=== PATIENT | male | born 1935 | race Caucasian/White ===

== ENCOUNTER 2022-04-05 15:21 | Outpatient (CLI) | payer MEDICARE, BC, SELFPAY ==
[2022-04-05 17:57] LABS: PSA Screen* 4.71 ng/mL (0.10-4.00)
== END 2022-04-05 15:22 | disposition home or self-care (01) ==
LOC: NFLDREF 15:23
PROVIDERS: PCP Internal Medicine; Visit Provider Internal Medicine
DX: N40.0 Benign prostatic hyperplasia without lower urinary tract symptoms (principal); D50.9 Iron deficiency anemia, unspecified; E78.5 Hyperlipidemia, unspecified; R35.0 Frequency of micturition
CPT/HCPCS: 84153; 87086

== ENCOUNTER 2022-04-06 08:00 | Outpatient (RCR) | payer MEDICARE, BC, SELFPAY ==
--- NOTE | 2022-04-06 12:00 | PT.OPEX ---
PT [place] Outpatient Eval PT [facility] Outpatient Eval Start: 02/09/22 13:29 Freq: Status: Active Protocol: Document 02/09/22 13:29 [facility] (Rec: 02/09/22 13:49 [facility] [id number]) E-signed By Lori Brunner, PT, ATC Physical Therapy Outpatient Evaluation Insurance Information Insurance Name Medicare B,Blue Cross/Blue Shield Medical Diagnosis unsteady gait Treating Diagnosis unsteady gait overpronation bilaterally weak core Referring MD Spears Subjective Current Work Status Retired Precautions Weight Bearing Status Full Weight Bearing Therapy Limitations/Systems Review Not Limited Objective Range of Motion right ankle: DF=8, PF=48, INV =15, EV=17, forefoot varus =20 left ankle: DF=7, PF=34, INV=20, EV=20, forefoot varus = 16 Assessment Assessment/Impression 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 He likes to get out and walk, but he hasn't been going as much because he is feeling less sure of himself. going uphill he has been getting more winded than usual (had a echocardiogram) but going down hill he gets spooked in fear of falling. His pelvic alignment appears normal, as does his leg length. His ankle motion is limited and he has significant forefoot varus bilaterally. hip , knee and ankle MMTs are 5/5. He overpronates bilaterally but the left side is more pronounced. When walking his gait appears to have equal karthik but his right foot toes out significantly, left foot points forward. pt had an achilles rupture and repair on the right in 1977. pt will benefit from skilled PT for TE, orthotic fabrication and proprioceptive training. pt will work on the exercises given today for 2 wks at which time he will bring in his shoes and I will fabricate orthotics and progress his exercises Plan of Care Rehabilitation Potential Good Physical Therapy Goals 1. pt will be competent and compliant with home ex's 2. in 4 wks pt will be comfortable wearing his orthotics in his shoes for a full day as he is out and about 3. in 8 wks pt will be able to walk downhill without fear of unsteadiness Coordination/Communication With Referral Source Treatment Plan/Direct Interventions Gait Training,Orthotics/Braces ,Therapeutic Exercises Frequency/Duration 1 time every other week as needed to achieve goals Patient Will Be Discharged From Therapy Independently Progressing Evaluation Billing Complexity Moderate Certification Information Initial Certification Date 02/09/22 Ending Certification Date 02/09/22
== END 2023-02-21 23:59 | disposition home or self-care (01) ==
PROVIDERS: PCP Internal Medicine; Visit Provider Internal Medicine
DX: R26.9 Unspecified abnormalities of gait and mobility (principal); Z51.89 Encounter for other specified aftercare
CPT/HCPCS: 97110; 97112; 97162; 97763

== ENCOUNTER 2022-04-18 10:37 | Outpatient (CLI) | payer MEDICARE, BC, SELFPAY | END 2022-04-18 10:38 | disposition home or self-care (01) | LOC: NFLDREF 04-27 14:48 | PROVIDERS: PCP Internal Medicine; Visit Provider Internal Medicine | DX: L81.9 Disorder of pigmentation, unspecified (principal); N39.0 Urinary tract infection, site not specified | CPT/HCPCS: 87086 ==

== ENCOUNTER 2022-05-09 09:02 | Outpatient (CLI) | payer MEDICARE, BC, SELFPAY | END 2022-05-09 09:03 | disposition home or self-care (01) | LOC: NFLDREF 09:03 | PROVIDERS: PCP Internal Medicine; Visit Provider Internal Medicine | DX: N39.0 Urinary tract infection, site not specified (principal) | CPT/HCPCS: 87086 ==

== ENCOUNTER 2022-08-13 09:21 | Outpatient (CLI) | payer MEDICARE, BC, SELFPAY | END 2022-08-13 09:22 | disposition home or self-care (01) | LOC: OP CLINIC 09:23 | PROVIDERS: PCP Internal Medicine; Visit Provider Surgery | DX: Z13.810 Encounter for screening for upper gastrointestinal disorder (principal); K22.89 Other specified disease of esophagus; K31.89 Other diseases of stomach and duodenum; K44.9 Diaphragmatic hernia without obstruction or gangrene | CPT/HCPCS: 43239; 88305; J2250; J3010 ==

== ENCOUNTER 2023-03-03 22:24 | Emergency (ER) | payer MEDICARE, BC, SELFPAY ==
[2023-03-03 22:33] VITALS: BP 109/70; PULSE 93; RESP 16; TEMP 36.8; O2SAT 98; BMI 23.7
--- NOTE | 2023-03-03 22:49 | ED_ITS ---
HPI - General Adult General Chief complaint: GI Bleed Stated complaint: rectal bleeding Time Seen by Provider: 03/03/23 22:29 History of Present Illness HPI narrative: This 87-year-old male comes in reporting bright red blood per rectum today. He states that he has been having troubles with constipation and did have a significant bowel movement earlier in the day. His next visit to the bathroom there was red blood in the toilet. He does not report any pain. He states that he has been having some blood in his stool on occasion like this. He does have a colonoscopy scheduled in a few months. He does have a history of anemia related to iron deficiency. He does not report any lightheadedness or shortness of breath. Related Data Home Medications Medication Instructions Recorded Confirmed cyanocobalamin (vitamin B-12) 1,000 mcg PO QDAY 04/10/22 03/03/23 1,000 mcg capsule ferrous sulfate 325 mg (65 mg 325 mg PO QDAY 04/10/22 03/03/23 iron) tablet propranolol 10 mg tablet 10 mg PO BID 05/09/22 09/18/22 finasteride 5 mg tablet 5 mg PO QDAY 08/27/22 03/03/23 Previous Rx's Medication Instructions Recorded tamsulosin 0.4 mg capsule 0.8 mg (2 x 0.4 mg) PO QDAY bph 04/05/22 #90 caps omeprazole 20 mg capsule,delayed 20 mg PO BID Austin's Esophagus 08/27/22 release #180 caps Allergies Allergy/AdvReac Type Severity Reaction Status Date / Time Nut tree Allergy Severe angioedema Uncoded 09/18/22 10:08 pine nuts AdvReac Severe angioedema Uncoded 09/18/22 10:08 Review of Systems Status of ROS: Reports: 10 or more systems reviewed and unremarkable except as noted in History and below Narrative: Constitutional: No fevers, no weight gain or loss. Eyes: No discharge. No vision changes. HENT: No congestion, no sore throat, no ear pain. Cardiovascular: No chest pain, no palpitations. Respiratory: No shortness of breath, no wheezes, no cough. Gastrointestinal: No abdominal pain, no vomiting, no diarrhea. Red blood per rectum today. Genitourinary: No dysuria, no hematuria. Musculoskeletal: Normal range of motion. Skin: No rashes, no pruritis. Neurological: No dizziness, weakness, sensory change, speech change. Endo/Heme/Allergies: No bruising or bleeding. No polydipsia. Pysch: no suicidality, no anxiety, no insomnia. All other systems reviewed and are negative. 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 Hx tobacco use Smoking Status: Never smoker Exam Narrative: Exam Narrative: Constitutional: Well-developed, well-nourished, no acute distress. HEENT: Normocephalic, atraumatic. Neck: Normal range of motion. Nontender. Supple. Heart: Regular. No murmurs. Normal rate. Intact distal pulses. Lungs: Clear to auscultation. No chest discomfort. No wheezes, rhonchi, or rales. Abdomen: Normal bowel sounds. Nontender. No rebound tenderness. Genitalia: Deferred. Back: No midline tenderness. Normal range of motion. Extremities: Normal range of motion. No injury. Skin: Intact. No rash. Warm. No erythema or pallor. Neurologic: No altered sensation. No weakness. Alert and oriented. Psychiatric: No suicidality. No anxiety or depression. No insomnia. Nursing notes and vitals signs are reviewed. Const: Vital Signs, click to edit/add: Vital Signs - 24 hr 03/03/23 22:33 Temperature 98.3 F Pulse Rate [Left P ulse Oximeter] 93 Respiratory Rate 16 Blood Pressure [Ri ght Upper Arm] 109/70 Pulse Oximetry 98 Oxygen Delivery Me thod Room Air Course Vital Signs Vital signs: Initial Vital Signs Temperature 98.3 F 03/03/23 22:33 Temperature Source Temporal Artery Scan 03/03/23 22:33 Pulse Rate 93 03/03/23 22:33 Respiratory Rate 16 03/03/23 22:33 Blood Pressure 109/70 03/03/23 22:33 Blood Pressure Mean 83 03/03/23 22:33 Blood Pressure Position Sitting 03/03/23 22:33 Pulse Oximetry 98 03/03/23 22:33 Oxygen Delivery Method Room Air 03/03/23 22:33 Vital Signs Temperature 98.3 F 03/03/23 22:33 Pulse Rate 93 03/03/23 22:33 Respiratory Rate 16 03/03/23 22:33 Blood Pressure 109/70 03/03/23 22:33 Pulse Oximetry 98 03/03/23 22:33 Oxygen Delivery Method Room Air 03/03/23 22:33 Temperature 98.3 F 03/03/23 22:33 Pulse Rate 93 03/03/23 22:33 Respiratory Rate 16 03/03/23 22:33 Blood Pressure 109/70 03/03/23 22:33 Pulse Oximetry 98 03/03/23 22:33 Oxygen Delivery Method Room Air 03/03/23 22:33 Medical Decision Making MDM Narrative Medical decision making narrative: This 87-year-old male comes in reporting bright red blood per rectum today. He states that he feels well and does not report any pain. He is not on any blood thinners. He has had some occasions like this in the past and is scheduled for a colonoscopy more than 2 months from now. Today his vital signs are normal and he is not reporting any other symptoms. The labs are acquired and his hemoglobin returns at 14.1 giving him lots of cushion for such bleeding. Additional lab results also are in normal range. It seems that this bleeding may be more likely related to hemorrhoid veins or an anal fissure. I explained that a colonoscopy would be helpful to further understand source of this bleeding. This patient is okay to be discharged home but encouraged to follow- up with his primary physician to acquire a colonoscopy sooner if possible. I explained that he may have some recurrent bleeding and if needed can return here and arrangements can be made for more urgent her emergent scope. Lab Data Labs: Lab Results 03/03/23 Range/Units 22:45 WBC 8.35 (4.50-11.00) K/uL RBC 4.55 (4.30-5.90) m/uL Hgb 14.1 (13.5-17.5) gm/dL Hct 42.7 (37.0-53.0) % MCV 94 (80-100) fL MCH 31 (26-34) pg MCHC 33 (32-36) gm/dL RDW Coeff of Casie 13.3 (11.5-15.5) % Plt Count 190 (140-440) K/uL Neut % (Auto) 73.2 H (42.0-72.0) % Lymph % (Auto) 14.4 L (20-44) % [place] % (Auto) 10.4 (0.0-11.0) % Eos % (Auto) 0.5 (0.0-7.0) % Baso % (Auto) 0.4 (0.0-3.0) % Neut # (Auto) 6.10 (1.7-7.0) K/uL Lymph # (Auto) 1.20 (0.90-2.90) K/uL [place] # (Auto) 0.90 (0.00-0.90) K/UL Eos # (Auto) 0.04 (0.00-0.50) K/uL Baso # (Auto) 0.03 (0.00-0.30) K/uL Abs Immat Gran (auto) 0.09 (0.00-0.30) K/uL Imm/Tot Granulo (auto) 1.1 % Sodium 133 L (135-149) mmol/L Potassium 3.8 (3.6-5.1) mmol/L Chloride 102 (96-114) mmol/L Carbon Dioxide 26 (20-32) mmol/L BUN 25 (7-30) mg/dL Creatinine 0.8 (0.5-1.5) mg/dL Estimated Creat Clear 57.52 Estimated GFR 87 ml/min Glucose 122 H (60-115) mg/dL Calcium 9.1 (8.4-10.6) mg/dL Discharge Plan Discharge Clinical Impression: Bright red rectal bleeding Patient Disposition: Home w/ Parent or Adult Condition: Stable Additional Instructions: Continue current plans. Follow up with primary physician to arrange a colonoscopy sooner if possible. Return if symptoms are recurrent or worsening. Prescriptions: No Action tamsulosin 0.4 mg capsule 0.8 mg PO QDAY Qty: 90 3RF ferrous sulfate 325 mg (65 mg iron) tablet 325 mg PO QDAY cyanocobalamin (vitamin B-12) 1,000 mcg capsule 1,000 mcg PO QDAY propranolol 10 mg tablet 10 mg PO BID finasteride 5 mg tablet 5 mg PO QDAY omeprazole 20 mg capsule,delayed release(DR/EC) 20 mg PO BID Qty: 180 3RF Follow Up/Referrals: Lazaro Spears MD [Staff Physician] - Stand Alone Forms: [employer] Info Instructions
[2023-03-03 22:54] LABS: Basophils Absolute Auto 0.03 K/uL (0.00-0.30); Basophils Percent Auto 0.4 % (0.0-3.0); Eosinophils Absolute Auto 0.04 K/uL (0.00-0.50); Eosinophils Percent Auto 0.5 % (0.0-7.0); Hematocrit 42.7 % (37.0-53.0); Hemoglobin* 14.1 gm/dL (13.5-17.5); Immature Granulocytes Abs Auto 0.09 K/uL (0.00-0.30); Immature Granulocytes Pct Auto 1.1 %; Lymphocytes Percent Auto 14.4 % (20-44); Mean Corpuscular HGB Conc 33 gm/dL (32-36); Mean Corpuscular Hemoglobin 31 pg (26-34); Mean Corpuscular Volume 94 fL (80-100); Monocytes Percent Auto 10.4 % (0.0-11.0); Neutrophils Percent Auto 73.2 % (42.0-72.0); Platelet Count* 190 K/uL (140-440); RDW Coefficient of Variation % 13.3 % (11.5-15.5); Red Blood Count 4.55 m/uL (4.30-5.90); White Blood Count* 8.35 K/uL (4.50-11.00)
[2023-03-03 22:59] LABS: Slide Review Reflex No
[2023-03-03 23:07] LABS: Chloride* 102 mmol/L (96-114); Potassium* 3.8 mmol/L (3.6-5.1); Sodium* 133 mmol/L (135-149)
[2023-03-03 23:10] LABS: Blood Urea Nitrogen* 25 mg/dL (7-30); Carbon Dioxide* 26 mmol/L (20-32); Creatinine* 0.8 mg/dL (0.5-1.5); Est. Creatinine Clearance* 57.52; Estimated Glomerular Filt Rate 87 ml/min
[2023-03-03 23:11] LABS: Calcium* 9.1 mg/dL (8.4-10.6); Glucose* 122 mg/dL (60-115)
[2023-03-04] VITALS: BP 112/74; PULSE 85; RESP 16; TEMP 36.8; O2SAT 98
[2023-03-04 00:03] VITALS: BP 119/82; PULSE 81; RESP 16
== END 2023-03-04 00:04 | disposition home or self-care (01) ==
PROVIDERS: Emergency Provider Emergency Medicine Emergency Medical Services; PCP Physician Assistant
DX: K62.5 Hemorrhage of anus and rectum (principal)
CPT/HCPCS: 36415; 80048; 85018; 85025; 99284

== ENCOUNTER 2023-03-06 06:50 | Outpatient (CLI) | payer MEDICARE, BC, SELFPAY | END 2023-03-06 06:51 | disposition home or self-care (01) | LOC: AMB 03-09 18:34 | PROVIDERS: PCP Physician Assistant; Visit Provider Family Medicine | DX: K92.2 Gastrointestinal hemorrhage, unspecified (principal); R53.1 Weakness | CPT/HCPCS: A0425; A0427 ==

== ENCOUNTER 2023-03-06 07:20 | Inpatient (IN) | payer MEDICARE, BC, SELFPAY ==
[2023-03-06] VITALS (40 sets, daily range): BP systolic 109–145; BP diastolic 59–97; PULSE 76–90; RESP 16–24; TEMP 36.6–37.1; O2SAT 80–100; BMI 23.7; BMI 23.1
--- NOTE | 2023-03-06 08:51 | ED_ITS ---
HPI - General Adult General Time Seen by Provider: 08:51 Date Seen: 04/10/23 Chief complaint: Weakness Stated complaint: GI bleed Time Seen by Provider: 03/06/23 07:50 Source: patient Mode of arrival: EMS History of Present Illness HPI narrative: Patient is 87-year-old male has had some rectal bleeding intermittently over the last few weeks. He reported that he had a little bit this morning. His hemoglobin last checked this weekend was 14.1. He is not on any blood thinners. He is scheduled for colonoscopy, his doctor is trying to move up the colonoscopy. He does have some minor rectal discomfort, but he overall feels okay, no stomach pain, no aspirin, no anticoagulants as mention. He does report significant stress with his with memory issues and he is really having trouble dealing with that at home. He reports that is a significant reason of presenting today as well. He denies lightheadedness dizziness, fevers, chills, abdominal pain. Related Data Home Medications Medication Instructions Recorded Confirmed cyanocobalamin (vitamin B-12) 1,000 mcg PO DAILY 04/10/22 03/06/23 1,000 mcg capsule finasteride 5 mg tablet 5 mg PO DAILY 08/27/22 03/06/23 diphenhydramine 25 2 tab PO QHS 03/06/23 03/06/23 mg-acetaminophen 500 mg tablet (Acetaminophen PM) omeprazole 40 mg capsule,delayed 40 mg PO DAILY 03/06/23 03/06/23 release sertraline 25 mg tablet 25 mg PO DAILY 03/06/23 03/06/23 tamsulosin 0.4 mg capsule 0.4 mg PO DAILY bph 03/06/23 03/06/23 Allergies Allergy/AdvReac Type Severity Reaction Status Date / Time tree nut Allergy Verified 03/06/23 10:14 Review of Systems Status of ROS: Reports: 6 or more systems reviewed and unremarkable except as noted in History and below [facility] Medical History (Updated 03/06/23 @ 12:18 by Virginia Jimenez MD) Health care directive on file ?Z78.9 - Other specified health status (ICD-10) Hoarse voice quality ?R49.0 - Dysphonia (ICD-10) 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 (ICD-10) Urinary tract infection ?N39.0 - Urinary tract infection, site not specified (ICD-10) BPH (benign prostatic hyperplasia) ?N40.0 - Benign prostatic hyperplasia without lower urinary tract symptoms (ICD-10) Tremor ?R25.1 - Tremor, unspecified (ICD-10) Surgical History (Updated 03/06/23 @ 11:20 by Virginia Jimenez MD) H/O hernia repair ?Z98.890 - Other specified postprocedural states (ICD-10) ?Z87.19 - Personal history of other diseases of the digestive system (ICD-10) S/P small bowel resection ?Z90.49 - Acquired absence of other specified parts of digestive tract (ICD- 10) Social History (Updated 03/06/23 @ 12:11 by Virginia Jimenez MD) Narrative: 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 Lives with in [place] (she has been undergoing health issues, has MCI). Son Taurus ([facility]# [phone]) and daughter Nury ([facility]) would share medical decision making capabilities if needed. He requests DNR/DNI status. Smoked socially in college, previous social ETOH use, none now. Health care directive on file- Health care directive dated 04/13/20 sent for scanning on 04/22/20. What is your current living situation?: I presently have a place to live Problems where you live: no known problems Problems where you live details: none In the past 12 months, utilities in danger of being shut off: no In the past 12 mos, have been you worried that your food would run out before you had money to buy more?: never true In the past 12 mos, the food you bought just didn't last and you didn't have money to buy more?: never true Highest level of school completed/degree received: Doctoral degree Smoking Status: Never smoker Do you use any of these nicotine containing products: None Second hand tobacco smoke exposure: No How often do you have a drink containing alcohol: never How often do you have six or more drinks on one occasion: Never AUDIT-C Alcohol total score: 0 Non-prescribed substance use: denies use Caffeine: Yes (little coffee-decafe) How often does anyone, including family, friends and others, physically hurt you : never How often does anyone, including family, friends and others, insult or talk down to you: never How often does anyone, including family, friends and others, threaten you with harm: never How often does anyone, including family, friends and others, scream or curse at you: never Gender Identity: male service: No Exam Narrative: Exam Narrative: Objective: Vital signs unremarkable, O2 sat excellent, afebrile In general no apparent distress Patient is a tearful when talking about his situation at home. Abdomen benign soft Rectal examination shows a small what appears to be small anal fissure externally and some external small hemorrhoid tissue that is a little bit friable. No prolapse digital exam deferred Const: Vital Signs, click to edit/add: Vital Signs - 24 hr 03/06/23 07:27 03/06/23 07:54 03/06/23 08:00 Temperature 97.9 F Pulse Rate 84 82 Pulse Rate [Pulse Oximeter] 90 Respiratory Rate 20 Blood Pressure Blood Pressure [Le ft Upper Arm] 136/72 Blood Pressure [Ri ght Arm] Pulse Oximetry 96 94 94 Oxygen Delivery Me thod Room Air 03/06/23 08:01 03/06/23 08:15 03/06/23 08:30 Temperature Pulse Rate 81 82 80 Pulse Rate [Pulse Oximeter] Respiratory Rate Blood Pressure 134/76 Blood Pressure [Le ft Upper Arm] Blood Pressure [Ri ght Arm] Pulse Oximetry 93 94 93 Oxygen Delivery Me thod 03/06/23 08:31 03/06/23 08:45 03/06/23 09:00 Temperature Pulse Rate 82 81 81 Pulse Rate [Pulse Oximeter] Respiratory Rate Blood Pressure 121/67 Blood Pressure [Le ft Upper Arm] Blood Pressure [Ri ght Arm] Pulse Oximetry 93 96 96 Oxygen Delivery Me thod 03/06/23 09:02 03/06/23 09:03 03/06/23 09:15 Temperature Pulse Rate 81 80 78 Pulse Rate [Pulse Oximeter] Respiratory Rate Blood Pressure 138/97 H Blood Pressure [Le ft Upper Arm] Blood Pressure [Ri ght Arm] Pulse Oximetry 95 94 93 Oxygen Delivery Me thod 03/06/23 09:30 03/06/23 09:34 03/06/23 09:45 Temperature Pulse Rate 84 82 82 Pulse Rate [Pulse Oximeter] Respiratory Rate Blood Pressure Blood Pressure [Le ft Upper Arm] Blood Pressure [Ri ght Arm] Pulse Oximetry 95 95 97 Oxygen Delivery Me thod 03/06/23 10:00 03/06/23 10:00 03/06/23 10:04 Temperature Pulse Rate 81 82 Pulse Rate [Pulse Oximeter] Respiratory Rate Blood Pressure 145/70 H Blood Pressure [Le ft Upper Arm] Blood Pressure [Ri ght Arm] Pulse Oximetry 97 100 100 Oxygen Delivery Me thod 03/06/23 10:10 03/06/23 10:15 03/06/23 10:30 Temperature Pulse Rate 79 86 Pulse Rate [Pulse Oximeter] Respiratory Rate Blood Pressure Blood Pressure [Le ft Upper Arm] Blood Pressure [Ri ght Arm] Pulse Oximetry 95 96 80 L Oxygen Delivery Me thod 03/06/23 10:31 03/06/23 10:45 03/06/23 11:00 Temperature Pulse Rate 86 85 82 Pulse Rate [Pulse Oximeter] Respiratory Rate Blood Pressure 143/89 H Blood Pressure [Le ft Upper Arm] Blood Pressure [Ri ght Arm] Pulse Oximetry 100 98 97 Oxygen Delivery Wa thod 03/06/23 11:01 03/06/23 11:23 Temperature 98.2 F Pulse Rate 80 Pulse Rate [Pulse Oximeter] 88 Respiratory Rate 16 Blood Pressure 138/66 Blood Pressure [Le ft Upper Arm] Blood Pressure [Ri ght Arm] 141/72 H Pulse Oximetry 96 97 Oxygen Delivery Me thod Room Air Course Vital Signs Vital signs: Initial Vital Signs Temperature 97.9 F 03/06/23 07:27 Temperature Source Temporal Artery Scan 03/06/23 07:27 Pulse Rate 90 03/06/23 07:27 Pulse Rhythm Regular 03/06/23 07:27 Respiratory Rate 20 03/06/23 07:27 Blood Pressure 136/72 03/06/23 07:27 Blood Pressure Mean 93 03/06/23 07:27 Blood Pressure Position Supine 03/06/23 07:27 Pulse Oximetry 96 03/06/23 07:27 Oxygen Delivery Method Room Air 03/06/23 07:27 Vital Signs Temperature 97.9 F 03/06/23 07:27 Pulse Rate 90 03/06/23 07:27 Respiratory Rate 20 03/06/23 07:27 Blood Pressure 136/72 03/06/23 07:27 Pulse Oximetry 96 03/06/23 07:27 Oxygen Delivery Method Room Air 03/06/23 07:27 Temperature 98 F 03/06/23 16:33 Pulse Rate 78 03/06/23 16:33 Respiratory Rate 20 03/06/23 16:33 Blood Pressure 109/59 L 03/06/23 16:33 Pulse Oximetry 95 03/06/23 16:33 Oxygen Delivery Method Room Air 03/06/23 12:01 Medical Decision Making MDM Narrative Medical decision making narrative: [age] year white male with history of intermittent GI bleeding, recent hemoglobin was stable, not on anticoagulants. He has really no symptomology at present. His blood pressure looks excellent as well as his pulse. Would recheck his hemoglobin. I am also going to have social service consult with him regarding his situation home. I agree with colonoscopy being accomplished as soon as he can. This is being done through his primary care physician. Light activity recommended, fluids, will check his labs as above. Addendum 10:09 a.m. the patient's hemoglobin is followed fallen significantly over the last few days from 14/1 to 9.7. He is lightheaded and dizzy. I think could be appropriate even those vital signs look reassuring to monitor him and check his hemoglobin and expedite his colonoscopy. He was comfortable this. Social service also consulted regarding him in his home situation and they are making arrangements /plan Lab Data Labs: Lab Results 03/06/23 Range/Units 09:33 WBC 6.71 (4.50-11.00) K/uL RBC 3.09 L (4.30-5.90) m/uL Hgb 9.7 L (13.5-17.5) gm/dL Hct 29.5 L (37.0-53.0) % MCV 96 (80-100) fL MCH 31 (26-34) pg MCHC 33 (32-36) gm/dL RDW Coeff of Casie 13.8 (11.5-15.5) % Plt Count 154 (140-440) K/uL Neut % (Auto) 78.7 H (42.0-72.0) % Lymph % (Auto) 12.1 L (20-44) % [place] % (Auto) 8.5 (0.0-11.0) % Eos % (Auto) 0.0 (0.0-7.0) % Baso % (Auto) 0.4 (0.0-3.0) % Neut # (Auto) 5.30 (1.7-7.0) K/uL Lymph # (Auto) 0.80 L (0.90-2.90) K/uL [place] # (Auto) 0.60 (0.00-0.90) K/UL Eos # (Auto) 0.00 (0.00-0.50) K/uL Baso # (Auto) 0.03 (0.00-0.30) K/uL Abs Immat Gran (auto) 0.02 (0.00-0.30) K/uL Imm/Tot Granulo (auto) 0.3 % Sodium 136 (135-149) mmol/L Potassium 3.5 L (3.6-5.1) mmol/L Chloride 109 (96-114) mmol/L Carbon Dioxide 26 (20-32) mmol/L BUN 39 H (7-30) mg/dL Creatinine 0.8 (0.5-1.5) mg/dL Estimated Creat Clear 57.52 Estimated GFR 87 ml/min Glucose 112 (60-115) mg/dL Calcium 8.3 L (8.4-10.6) mg/dL Blood Type O Positive Antibody Screen NEGATIVE Crossmatch (AHG) See Detail Discharge Plan Discharge Clinical Impression: Chronic GI bleeding
[2023-03-06 09:52] LABS: Basophils Absolute Auto 0.03 K/uL (0.00-0.30); Basophils Percent Auto 0.4 % (0.0-3.0); Hematocrit 29.5 % (37.0-53.0); Hemoglobin* 9.7 gm/dL (13.5-17.5); Immature Granulocytes Abs Auto 0.02 K/uL (0.00-0.30); Immature Granulocytes Pct Auto 0.3 %; Lymphocytes Percent Auto 12.1 % (20-44); Mean Corpuscular HGB Conc 33 gm/dL (32-36); Mean Corpuscular Hemoglobin 31 pg (26-34); Mean Corpuscular Volume 96 fL (80-100); Monocytes Percent Auto 8.5 % (0.0-11.0); Neutrophils Percent Auto 78.7 % (42.0-72.0); Platelet Count* 154 K/uL (140-440); RDW Coefficient of Variation % 13.8 % (11.5-15.5); Red Blood Count 3.09 m/uL (4.30-5.90); White Blood Count* 6.71 K/uL (4.50-11.00)
[2023-03-06 10:02] LABS: Slide Review Reflex No
[2023-03-06 10:13] LABS: Chloride* 109 mmol/L (96-114)
[2023-03-06 10:14] LABS: Potassium* 3.5 mmol/L (3.6-5.1); Sodium* 136 mmol/L (135-149)
[2023-03-06 10:16] LABS: Creatinine* 0.8 mg/dL (0.5-1.5); Est. Creatinine Clearance* 57.52; Estimated Glomerular Filt Rate 87 ml/min
[2023-03-06 10:17] LABS: Blood Urea Nitrogen* 39 mg/dL (7-30); Calcium* 8.3 mg/dL (8.4-10.6); Carbon Dioxide* 26 mmol/L (20-32); Glucose* 112 mg/dL (60-115)
--- NOTE | 2023-03-06 11:00 | ED.NURSE ---
report was given to Mirta richards to [facility].
--- NOTE | 2023-03-06 11:06 | P.IMHP_ITS ---
Hospitalist- H&P: HPI History of Present Illness Date Seen: 03/06/23 Chief complaint: GI bleed Narrative: Ming Schafer is a 87 year old male who presented to the emergency room for persistent hematochezia. Early last week, he noted fairly severe constipation. He took [id number] stool softeners and 6 days ago had 4 large bowel movements. That evening, he started noticing blood in his stool. This has been present intermittently and he was seen in the ER 2 days ago. At that time, he did not have any dizziness or lightheadedness and hemoglobin is within normal range, so he was discharged with instructions to follow-up as an outpatient for colonoscopy. Over the past 24 hours, he has had intermittent lightheadedness without syncope or presyncope. Today, he had a large bloody bowel movement at 6:30 a.m. and re-presented to the emergency room. He has not had any abdominal pain, nausea, or vomiting. ER Course and findings: - Hgb 9.7 (was 14.1 on 03/03) - no hypotension or tachycardia, no hypoxia - K of 3.5 - per ER physician: Rectal examination shows a small what appears to be small anal fissure externally and some external small hemorrhoid tissue that is a little bit friable - no further stools in the ED; upon arrival to the floor he had a large bowel movement with both bright red blood and darker blood Ming endorses a tremendous amount of stress recently; recently diagnosed with cancer and had a large surgery. 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 Patient's PCP is Jennifer Carter at [facility], medical history updated below. Review of Systems Status of ROS: Reports: 10 or more systems reviewed and unremarkable except as noted in History and below Narrative: Notes weight loss of approximately 10-15 lb over the past few months, likely stress related. No nausea or vomiting. No chest pain or dyspnea. 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 (ICD-10) Urinary tract infection ?N39.0 - Urinary tract infection, site not specified (ICD-10) BPH (benign prostatic hyperplasia) ?N40.0 - Benign prostatic hyperplasia without lower urinary tract symptoms (ICD-10) Tremor ?R25.1 - Tremor, unspecified (ICD-10) Surgical History (Updated 03/06/23 @ 11:20 by Virginia Jimenez MD) H/O hernia repair ?Z98.890 - Other specified postprocedural states (ICD-10) ?Z87.19 - Personal history of other diseases of the digestive system (ICD-10) S/P small bowel resection ?Z90.49 - Acquired absence of other specified parts of digestive tract (ICD- 10) Social History (Updated 03/06/23 @ 12:11 by Virginia Jimenez MD) Narrative: 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 Lives with in [place] (she has been undergoing health issues, has MCI). Son Taurus ([facility]# [phone]) and daughter Nury ([facility]) would share medical decision making capabilities if needed. He requests DNR/DNI status. Smoked socially in college, previous social ETOH use, none now. Health care directive on file- Health care directive dated 04/13/20 sent for scanning on 04/22/20. What is your current living situation?: I presently have a place to live Problems where you live: no known problems Problems where you live details: none In the past 12 months, utilities in danger of being shut off: no In the past 12 mos, have been you worried that your food would run out before you had money to buy more?: never true In the past 12 mos, the food you bought just didn't last and you didn't have money to buy more?: never true Highest level of school completed/degree received: Doctoral degree Smoking Status: Never smoker Do you use any of these nicotine containing products: None Second hand tobacco smoke exposure: No How often do you have a drink containing alcohol: never How often do you have six or more drinks on one occasion: Never AUDIT-C Alcohol total score: 0 Non-prescribed substance use: denies use Caffeine: Yes (little coffee-decafe) How often does anyone, including family, friends and others, physically hurt you : never How often does anyone, including family, friends and others, insult or talk down to you: never How often does anyone, including family, friends and others, threaten you with harm: never How often does anyone, including family, friends and others, scream or curse at you: never Gender Identity: male service: No Meds Home Medications and Allergies Home Medications Medication Instructions Recorded Confirmed Type cyanocobalamin (vitamin B-12) 1,000 mcg PO DAILY 04/10/22 03/06/23 History 1,000 mcg capsule finasteride 5 mg tablet 5 mg PO DAILY 08/27/22 03/06/23 History diphenhydramine 25 2 tab PO QHS 03/06/23 03/06/23 History mg-acetaminophen 500 mg tablet (Acetaminophen PM) omeprazole 40 mg capsule,delayed 40 mg PO DAILY 03/06/23 03/06/23 History release sertraline 25 mg tablet 25 mg PO DAILY 03/06/23 03/06/23 History tamsulosin 0.4 mg capsule 0.4 mg PO DAILY bph 03/06/23 03/06/23 History Home Medication Comments: Sertraline was started in February given stress over 's recent illness He has been taking his PPI He is not on any blood thinners Allergies Allergy/AdvReac Type Severity Reaction Status Date / Time tree nut Allergy Verified 03/06/23 10:14 Exam Narrative: Exam Narrative: GEN: Alert and oriented, answering questions appropriately HEENT: EOMIs bilaterally, no scleral icterus CV: RRR, No concerning murmurs, rubs, or gallops R: LCTA bilaterally without concerning wheezing Ab: soft, mildly distended, nontender, hyperactive bowel sounds Ext: wwp, no concerning edema Skin: No concerning skin lesions or rashes on exposed skin Neuro: No focal deficits Psych: Appears mildly anxious, redirectable Const: Vital Signs, click to edit/add: Vital Signs - 24 hr 03/06/23 07:27 03/06/23 07:54 03/06/23 08:00 Temperature 97.9 F Pulse Rate 84 82 Pulse Rate [Pulse Oximeter] 90 Respiratory Rate 20 Blood Pressure Blood Pressure [Le ft Upper Arm] 136/72 Pulse Oximetry 96 94 94 Oxygen Delivery Me thod Room Air 03/06/23 08:01 03/06/23 08:15 03/06/23 08:30 Temperature Pulse Rate 81 82 80 Pulse Rate [Pulse Oximeter] Respiratory Rate Blood Pressure 134/76 Blood Pressure [Le ft Upper Arm] Pulse Oximetry 93 94 93 [facility] 03/06/23 08:31 03/06/23 08:45 03/06/23 09:00 Temperature Pulse Rate 82 81 81 Pulse Rate [Pulse Oximeter] Respiratory Rate Blood Pressure 121/67 Blood Pressure [Le ft Upper Arm] Pulse Oximetry 93 96 96 Oxygen Delivery [facility] 03/06/23 09:02 Temperature Pulse Rate 81 Pulse Rate [Pulse Oximeter] Respiratory Rate Blood Pressure 138/97 H Blood Pressure [Le ft Upper Arm] Pulse Oximetry 95 Oxygen Delivery [facility] Hospitalist - H&P: Result Labs Labs: Short CBC 03/06/23 Range/Units 09:33 WBC 6.71 (4.50-11.00) K/uL Hgb 9.7 L (13.5-17.5) gm/dL Hct 29.5 L (37.0-53.0) % Plt Count 154 (140-440) K/uL [facility] 03/06/23 09:33 Sodium 136 Potassium 3.5 L Chloride 109 Carbon Dioxide 26 BUN 39 H Creatinine 0.8 Glucose 112 Calcium 8.3 L Assessment and Plan Assessment and plan (1) Bright red rectal bleeding: Problem comment: - differential diagnosis includes diverticular bleed, internal hemorrhoids, peptic ulcer disease - admit to the hospital with serial hemoglobins, IV ppi, EGD and colonoscopy on Saturday Status: Acute (2) Austin's esophagus: Status: Acute (3) Ascending aorta dilation: Problem comment: - history of this, asymptomatic. Last TTE 01/24: Final Impressions: 1. Normal LV size, moderately increased wall thickness, normal global systolic function with an estimated EF of 60 - 65%. 2. Right ventricular cavity size is normal, global systolic RV function is normal. 3. Mildly enlarged left atrium. 4. The aortic valve is trileaflet and sclerotic, no stenosis and moderate regurgitation. 5. The mitral valve is sclerotic, trace mitral regurgitation. 6. The ascending aorta is dilated with a maximal diameter of 4.1 cm. Status: Acute Plan - per above - SCDs for prophylaxis, pharmacologic prophylaxis contraindicated in the setting of acute GI bleed - son at updated by phone, questions answered - patient requests DNR/DNI status
[2023-03-06] MEDS: PANTOPRAZOLE SODIUM 40 MG INJ IVP (12:25)
[2023-03-06] MEDS: 0.9 % SODIUM CHLORIDE 1000 ml 1,000 ML 125 ML IV (12:28)
[2023-03-06] MEDS: POTASSIUM BICARB 25 MEQ EFFERVESCENT TAB PO ×2 (12:49→14:19)
[2023-03-06] MEDS: ACETAMINOPHEN 325 MG TABLET 975 MG PO (13:47)
[2023-03-06 14:38] LABS: Hemoglobin* 9.1 gm/dL (13.5-17.5)
--- NOTE | 2023-03-06 14:49 | PC.SOCIAL ---
Social Work: Initially met with pt in the Emergency Room regarding his concerns. Pt is the primary caregiver for his who recently went through surgery for cancer and has a colostomy.Pt also reports she has short term memory issues which he is concerned about. Pt has been caring for her which he describes as being very stressful and that he is struggling from caregiver burnout.. He is interested in finding live-in care for his and for him to go to an assisted living facility so he can rest. Pt states his son, Ed, has been looking into home care options and requested social work case manager call him to discuss what he has done and the discharge plan. Pt states he has asked friends to be with his to assist while he is in the hospital and thinks this is arranged. He is not currently concerned about her safety. Called son, Ed [phone], at pt request. Son was aware pt is in the hospital and shared that they have been looking into getting help at home. Son was unaware of pt wanting this care to start right away and does not have anything arranged at this time. Son requested information on options for assisted living placement and is going to discuss with his sister if family can visit to assist with planning. Son lives in [facility] and daughter lives on [facility]. Called assisted living facilities in [place]. The only facility with available respite apartments is [facility]. Provided contact information to son to contact regarding availability for pt's as pt has now been hospitalized and care needs at discharge are not yet determined. Pt's daughter, Nury [phone], is arriving this evening from [place] and will be assisting with care of pt's at home and support pt in decision making at the hospital. transportation maintenance worker to follow up as needed.
[2023-03-06] MEDS: 0.9 % SODIUM CHLORIDE 250 ml IV (16:21)
[2023-03-06 17:50] LABS: Hemoglobin* 9.7 gm/dL (13.5-17.5)
--- NOTE | 2023-03-06 19:38 | PC.NURSE ---
End of Shift: Patient pleasant and cooperative, arrived to the floor about 11am. Patient vitally stable, lungs clear, BS WNL, IV running NS at 125. Patient given tylenol once for abdominal discomfort, denies pain. Patient is SBA to toilet. Patient was given 1 unit of blood by this medical technical writer. Patient tolerated blood transfusion well. Patient urinating and tolerating clear liquids. Patient has had 3 loose bloody/maroon stools.
[2023-03-06] MEDS: diphenhydrAMINE 25 MG CAPSULE 50 MG PO (23:31)
[2023-03-06] MEDS: ACETAMINOPHEN 500 MG TABLET 1000 MG PO (23:32)
[2023-03-07] MEDS: 0.9 % SODIUM CHLORIDE 1000 ml 1,000 ML 125 ML IV ×3 (02:19→18:22)
[2023-03-07 03:00] VITALS: BP 109/65; PULSE 71; RESP 20; TEMP 36.8; O2SAT 94
--- NOTE | 2023-03-07 05:56 | PC.NURSE ---
Shift note: Pt continue to have blld==
--- NOTE | 2023-03-07 05:58 | PC.NURSE ---
Shift note: Pt continue to have recurrent bloody loose stool, 4x loose stool tonight which disrupted sleeping pattern. Pt received 2 units of blood uneventfully. 1 unit completed before the shift and nurse started and complete the second unit which last for more than 2hours 30minutes. Alert and oriented, denied any pain. Vital signs were stable. Education on bowel preparation today for possible colonoscopy given.
[2023-03-07 06:40] LABS: Basophils Absolute Auto 0.02 K/uL (0.00-0.30); Basophils Percent Auto 0.3 % (0.0-3.0); Eosinophils Absolute Auto 0.08 K/uL (0.00-0.50); Eosinophils Percent Auto 1.2 % (0.0-7.0); Hematocrit 29.7 % (37.0-53.0); Hemoglobin* 9.7 gm/dL (13.5-17.5); Immature Granulocytes Abs Auto 0.05 K/uL (0.00-0.30); Immature Granulocytes Pct Auto 0.7 %; Lymphocytes Percent Auto 14.5 % (20-44); Mean Corpuscular HGB Conc 33 gm/dL (32-36); Mean Corpuscular Hemoglobin 30 pg (26-34); Mean Corpuscular Volume 92 fL (80-100); Monocytes Percent Auto 9.5 % (0.0-11.0); Neutrophils Percent Auto 73.8 % (42.0-72.0); Platelet Count* 124 K/uL (140-440); RDW Coefficient of Variation % 15.8 % (11.5-15.5); Red Blood Count 3.24 m/uL (4.30-5.90); Slide Review Reflex No; White Blood Count* 6.92 K/uL (4.50-11.00)
[2023-03-07 06:58] LABS: Albumin* 2.5 g/dL (3.3-5.0); Chloride* 112 mmol/L (96-114); Sodium* 138 mmol/L (135-149)
[2023-03-07 06:59] LABS: Potassium* 3.9 mmol/L (3.6-5.1)
[2023-03-07 07:01] LABS: Alkaline Phosphatase* 42 U/L (40-150); Aspartate Amino Transferase* 18 U/L (12-35); Blood Urea Nitrogen* 40 mg/dL (7-30); Carbon Dioxide* 26 mmol/L (20-32); Creatinine* 0.7 mg/dL (0.5-1.5); Estimated Glomerular Filt Rate 90 ml/min; Glucose* 90 mg/dL (60-115); Total Protein* 4.6 g/dL (6.0-8.3)
[2023-03-07 07:02] LABS: Alanine Aminotransferase* 14 U/L (4-50)
[2023-03-07 07:32] VITALS: BP 123/67; PULSE 78; RESP 20; TEMP 36.4; O2SAT 94
[2023-03-07] MEDS: CYANOCOBALAMIN (VITAMIN B-12) 500 MCG TABLET 1000 MCG PO (09:18)
[2023-03-07] MEDS: SERTRALINE 50 MG TABLET 25 MG PO (09:18)
[2023-03-07] MEDS: TAMSULOSIN HCL 0.4 MG CAPSULE PO (09:18)
[2023-03-07] MEDS: FINASTERIDE 5 MG TABLET PO (09:19)
[2023-03-07 09:29] VITALS: BMI 23.1
--- NOTE | 2023-03-07 10:25 | PM.IMPN1 ---
Progress Note: A&P Assessment and plan (1) Bright red rectal bleeding: Problem details: - differential diagnosis includes diverticular bleed, internal hemorrhoids, peptic ulcer disease - hemodynamically stable - serial hemoglobins, IV PPI - received 2U PRBCs on 03/06 for persistent bloody stools - EGD and colonoscopy on Saturday Status: Acute (2) Austin's esophagus: Status: Acute (3) Ascending aorta dilation: Problem details: - history of this, asymptomatic. Last TTE 01/24: Final Impressions: 1. Normal LV size, moderately increased wall thickness, normal global systolic function with an estimated EF of 60 - 65%. 2. Right ventricular cavity size is normal, global systolic RV function is normal. 3. Mildly enlarged left atrium. 4. The aortic valve is trileaflet and sclerotic, no stenosis and moderate regurgitation. 5. The mitral valve is sclerotic, trace mitral regurgitation. 6. The ascending aorta is dilated with a maximal diameter of 4.1 cm. Status: Acute (4) Anxiety: Problem details: - recent stressors ('s illness, caregiver burden) - started on Zoloft February 2023 Status: Acute (5) Iron deficiency anemia: Problem details: - long history of this, on outpatient iron supplementation Status: Acute (6) BPH (benign prostatic hyperplasia): Problem details: - stable, continue home medications Status: Acute Plan - per above - starting prep today, scopes tomorrow - pharmacologic ppx contraindicated Subjective Date Seen: 03/07/23 Interval history: Ming received 2U of PRBCs overnight, tolerated this well. He has continued to have intermittent bloody BMs, remained hemodynamically stable. He denies CP, dyspnea, lightheadedness, or dizziness. Exam Narrative: Exam Narrative: GEN: Alert and oriented HEENT: EOMIs bilaterally, no scleral icterus CV: RRR, No concerning murmurs R: LCTA bilaterally without concerning wheezing, air movement adequate Ab: soft, no ttp, + bowel sounds Ext: wwp, no concerning edema Skin: No concerning skin lesions or rashes on exposed skin Neuro: No focal deficits, intermittent tremor noted (chronic) Psych: Mild anxiety, otherwise appropriate Const: Vital Signs, click to edit/add: Vital Signs - 24 hr 03/06/23 10:30 03/06/23 10:31 03/06/23 10:45 Temperature Pulse Rate 86 86 85 Pulse Rate [Pulse Oximeter] Respiratory Rate Blood Pressure 143/89 H Blood Pressure [Ri ght Arm] Pulse Oximetry 80 L 100 98 Oxygen Delivery Me thod 03/06/23 11:00 03/06/23 11:01 03/06/23 11:23 Temperature 98.2 F Pulse Rate 82 80 Pulse Rate [Pulse Oximeter] 88 Respiratory Rate 16 Blood Pressure 138/66 Blood Pressure [Ri ght Arm] 141/72 H Pulse Oximetry 97 96 97 Oxygen Delivery Me thod Room Air 03/06/23 12:01 03/06/23 15:00 03/06/23 15:50 Temperature 98.6 F Pulse Rate Pulse Rate [Pulse Oximeter] 83 83 Respiratory Rate 16 20 24 Blood Pressure Blood Pressure [Ri ght Arm] 119/64 Pulse Oximetry 97 95 [facility] 03/06/23 16:33 03/06/23 16:54 03/06/23 17:39 Temperature 98 F 98.4 F 98.2 F Pulse Rate 78 79 76 Pulse Rate [Pulse Oximeter] Respiratory Rate 20 20 20 Blood Pressure 109/59 L 113/63 127/60 Blood Pressure [Ri ght Arm] Pulse Oximetry 95 95 95 Oxygen Delivery Me od 03/06/23 19:00 03/06/23 19:06 03/06/23 19:30 Temperature 98.3 F 97.8 F 98.3 F Pulse Rate 86 84 Pulse Rate [Pulse Oximeter] 84 Respiratory Rate 20 22 20 Blood Pressure 136/76 123/65 Blood Pressure [Ri ght Arm] 123/65 Pulse Oximetry 96 96 96 [facility] 03/06/23 20:20 03/06/23 20:30 03/06/23 20:37 Temperature 98.4 F 98.7 F 98.7 F Pulse Rate 76 85 85 Pulse Rate [Pulse Oximeter] Respiratory Rate 20 20 20 Blood Pressure 126/74 132/76 145/74 H Blood Pressure [Ri ght Arm] Pulse Oximetry 93 95 95 Oxygen Delivery Me thod 03/06/23 21:22 03/06/23 23:00 03/06/23 23:00 Temperature 98.2 F 98.2 F Pulse Rate 82 Pulse Rate [Pulse Oximeter] 82 82 Respiratory Rate 20 20 20 Blood Pressure 133/70 Blood Pressure [Ri ght Arm] 133/70 Pulse Oximetry 95 94 Oxygen Delivery Me thod Room Air 03/06/23 23:45 03/07/23 03:00 03/07/23 07:32 Temperature 98.2 F 98.2 F 97.6 F Pulse Rate 82 Pulse Rate [Pulse Oximeter] 71 78 Respiratory Rate 20 20 20 Blood Pressure 133/70 Blood Pressure [Ri ght Arm] 109/65 123/67 Pulse Oximetry 94 94 94 Oxygen Delivery Me thod Room Air Room Air Labs Labs: Laboratory Results - last 24 hr 03/06/23 03/06/23 03/06/23 09:33 14:30 17:36 WBC RBC Hgb 9.1 L 9.7 L Hct MCV MCH MCHC RDW Coeff of Casie Plt Count Neut % (Auto) Lymph % (Auto) [place] % (Auto) Eos % (Auto) Baso % (Auto) Neut # (Auto) Lymph # (Auto) [place] # (Auto) Eos # (Auto) Baso # (Auto) Abs Immat Gran (auto) Imm/Tot Granulo (auto) Sodium Potassium Chloride Carbon Dioxide BUN Creatinine Estimated Creat Clear Estimated GFR Glucose Calcium Total Bilirubin AST ALT Alkaline Phosphatase Total Protein Albumin Blood Type O Positive Antibody Screen NEGATIVE Crossmatch ([facility]) See Detail 03/07/23 06:21 WBC 6.92 RBC 3.24 L Hgb 9.7 L Hct 29.7 L MCV 92 MCH 30 MCHC 33 RDW Coeff of Casie 15.8 H Plt Count 124 L Neut % (Auto) 73.8 H Lymph % (Auto) 14.5 L [place] % (Auto) 9.5 Eos % (Auto) 1.2 Baso % (Auto) 0.3 Neut # (Auto) 5.10 Lymph # (Auto) 1.00 [place] # (Auto) 0.70 Eos # (Auto) 0.08 Baso # (Auto) 0.02 Abs Immat Gran (auto) 0.05 Imm/Tot Granulo (auto) 0.7 Sodium 138 Potassium 3.9 Chloride 112 Carbon Dioxide 26 BUN 40 H Creatinine 0.7 Estimated Creat Clear 57.30 Estimated GFR 90 Glucose 90 Calcium 8.0 L Total Bilirubin 1.0 AST 18 ALT 14 Alkaline Phosphatase 42 Total Protein 4.6 L Albumin 2.5 L Blood Type Antibody Screen Crossmatch ([facility])
[2023-03-07 11:00] VITALS: BP 132/68; PULSE 78; RESP 18; TEMP 36.8; O2SAT 93
[2023-03-07] MEDS: bisacodyL 5 MG TABLET DR 10 MG PO (11:13)
[2023-03-07] MEDS: PANTOPRAZOLE SODIUM 40 MG INJ IVP (12:10)
[2023-03-07] MEDS: polyethylene glycoL 238 GM BULK BOTTLE PO (13:31)
[2023-03-07 14:09] LABS: Hemoglobin* 9.6 gm/dL (13.5-17.5)
[2023-03-07 15:00] VITALS: BP 120/69; PULSE 82; RESP 18; TEMP 36.7; O2SAT 96
--- NOTE | 2023-03-07 18:57 | PC.NURSE ---
Shift Summary: Patient pleasant and cooperative. Up with one assist, walker and gait belt. Vitals stable and WNL, o2 sat >90% on RA. Denies pain throughout shift. Started bowel prep around noon, patient tolerating well. Has been using BSC due to frequent BM and weakness. Was on clear liquid diet this morning and for lunch. Using call light appropriately. BM continues to be bloody however prior to bowel prep was having less out each time.
[2023-03-07 19:00] VITALS: PULSE 84; RESP 18; TEMP 36.8; O2SAT 96
[2023-03-07 20:22] LABS: Hemoglobin* 9.1 gm/dL (13.5-17.5)
[2023-03-07 23:00] VITALS: BP 154/73; PULSE 76; RESP 18; TEMP 37.1; O2SAT 96
--- NOTE | 2023-03-07 23:03 | PC.NURSE ---
Patient completed Golytely portion of the bowel prep. Pt having frequent liquid stool that are opaque/dark maroon in color. Patient denies nausea. Denies pain. Planning for scopes tomorrow around 12:45
[2023-03-07] MEDS: diphenhydrAMINE 25 MG CAPSULE 50 MG PO (23:40)
[2023-03-07] MEDS: ACETAMINOPHEN 500 MG TABLET 1000 MG PO (23:41)
[2023-03-08] VITALS (7 sets, daily range): BP systolic 94–155; BP diastolic 51–74; PULSE 75–91; RESP 16–22; TEMP 36.8–37.2; O2SAT 93–96
[2023-03-08] MEDS: 0.9 % SODIUM CHLORIDE 1000 ml 1,000 ML 125 ML IV ×2 (01:31→09:42)
--- NOTE | 2023-03-08 06:03 | PC.NURSE ---
Shift note: Pt has been on NPO for colonoscopy today. Continue to have watery stool but brown in color, at least 4x tonight. Alert and oriented. A1, walker and GB. Pt denied abdominal pain, SOB, and N/V. Pt had adequate sleep and vitally stable.
[2023-03-08 06:35] LABS: Albumin* 2.4 g/dL (3.3-5.0)
[2023-03-08 06:36] LABS: Chloride* 112 mmol/L (96-114); Sodium* 140 mmol/L (135-149)
[2023-03-08 06:38] LABS: Aspartate Amino Transferase* 18 U/L (12-35); Bilirubin Total* 0.6 mg/dL (0.1-1.5); Carbon Dioxide* 26 mmol/L (20-32); Creatinine* 0.7 mg/dL (0.5-1.5); Estimated Glomerular Filt Rate 90 ml/min; Total Protein* 4.3 g/dL (6.0-8.3)
[2023-03-08 06:39] LABS: Alanine Aminotransferase* 14 U/L (4-50); Alkaline Phosphatase* 42 U/L (40-150); Blood Urea Nitrogen* 21 mg/dL (7-30); Calcium* 7.9 mg/dL (8.4-10.6); Glucose* 97 mg/dL (60-115)
[2023-03-08 06:43] LABS: Basophils Absolute Auto 0.02 K/uL (0.00-0.30); Basophils Percent Auto 0.3 % (0.0-3.0); Eosinophils Absolute Auto 0.07 K/uL (0.00-0.50); Hematocrit 25.7 % (37.0-53.0); Hemoglobin* 8.5 gm/dL (13.5-17.5); Immature Granulocytes Abs Auto 0.04 K/uL (0.00-0.30); Immature Granulocytes Pct Auto 0.6 %; Lymphocytes Percent Auto 14.3 % (20-44); Mean Corpuscular HGB Conc 33 gm/dL (32-36); Mean Corpuscular Hemoglobin 31 pg (26-34); Mean Corpuscular Volume 93 fL (80-100); Monocytes Percent Auto 9.4 % (0.0-11.0); Neutrophils Percent Auto 74.4 % (42.0-72.0); Platelet Count* 146 K/uL (140-440); Red Blood Count 2.76 m/uL (4.30-5.90); Slide Review Reflex No; White Blood Count* 6.93 K/uL (4.50-11.00)
[2023-03-08] MEDS: polyethylene glycoL 3350 17 GM PACK 34 GM PO (07:16)
[2023-03-08] MEDS: bisacodyL 10 MG SUPP.RECT PR (07:17)
[2023-03-08] MEDS: CYANOCOBALAMIN (VITAMIN B-12) 500 MCG TABLET 1000 MCG PO (10:03)
[2023-03-08] MEDS: FINASTERIDE 5 MG TABLET PO (10:03)
[2023-03-08] MEDS: SERTRALINE 50 MG TABLET 25 MG PO (10:04)
[2023-03-08] MEDS: TAMSULOSIN HCL 0.4 MG CAPSULE PO (10:05)
--- NOTE | 2023-03-08 11:03 | PC.SOCIAL ---
Discharge planning: Spoke with dtr, Nury [phone], who is visiting from [place] to assist with pt and care of his at home. Dtr states that she has taken over all the 's care needs and will be staying for at least the next week. When pt is ready for discharge, dtr expects him to return home where he would not be expected to be 's caregiver and he could rest. Family had previously set pt up with counselling to support pt's mental health and social work coordinator has confirmed that the initial counselling visit is scheduled for Saturday. recreation worker to follow up as needed.
--- NOTE | 2023-03-08 13:02 | W.ANESCHARGE ---
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
[2023-03-08] MEDS: PANTOPRAZOLE SODIUM 40 MG INJ IVP (13:49)
[2023-03-08] MEDS: SODIUM CHLORIDE 0.9 % (FLUSH) 10 ML SYRINGE 5 ML IVF ×2 (13:49→21:48)
--- NOTE | 2023-03-08 14:22 | PM.IMPN1 ---
Progress Note: A&P Assessment and plan (1) Bright red rectal bleeding: Problem details: - differential diagnosis includes diverticular bleed, internal hemorrhoids, peptic ulcer disease - hemodynamically stable - received 2U PRBCs on 03/06 for persistent bloody stools - EGD and colonoscopy 03/08: No acute findings noted Status: Acute (2) Austin's esophagus: Status: Acute (3) Ascending aorta dilation: Problem details: - history of this, asymptomatic. Last TTE 01/24: Final Impressions: 1. Normal LV size, moderately increased wall thickness, normal global systolic function with an estimated EF of 60 - 65%. 2. Right ventricular cavity size is normal, global systolic RV function is normal. 3. Mildly enlarged left atrium. 4. The aortic valve is trileaflet and sclerotic, no stenosis and moderate regurgitation. 5. The mitral valve is sclerotic, trace mitral regurgitation. 6. The ascending aorta is dilated with a maximal diameter of 4.1 cm. Status: Acute (4) Anxiety: Problem details: - recent stressors ('s illness, caregiver burden) - started on Zoloft February 2023 Status: Acute (5) Iron deficiency anemia: Problem details: - long history of this, on outpatient iron supplementation Status: Acute (6) BPH (benign prostatic hyperplasia): Problem details: - stable, continue home medications Status: Acute Plan - per above - anticipate home tomorrow if hemoglobin remains stable Subjective Date Seen: 03/08/23 Interval history: Ming had colonoscopy and endoscopy late this morning. From verbal report, there were no acute abnormalities or concerns. The blood in his stool improved and essentially resolved as he completed his colonoscopy prep overnight and into this morning. He has no concerns for the hospitalist team today. His vital signs remain stable. Exam Narrative: Exam Narrative: GEN: Alert and oriented, laying comfortably in bed CV: Pulse palpates as regular rate and rhythm R: No tachypnea, breathing comfortably Ext: wwp, no concerning edema Skin: No concerning skin lesions or rashes on exposed skin Neuro: Nonfocal Psych: Appears less anxious today Const: Vital Signs, click to edit/add: Vital Signs - 24 hr 03/07/23 15:00 03/07/23 19:00 03/07/23 23:00 Temperature 98.1 F 98.2 F 98.7 F Pulse Rate [Pulse Oximeter] 82 84 76 Respiratory Rate 18 18 18 Blood Pressure [Ri ght Arm] 120/69 154/73 H Pulse Oximetry 96 96 96 Oxygen Delivery Me thod Room Air Room Air Room Air 03/08/23 03:00 03/08/23 07:00 03/08/23 11:00 Temperature 99 F 98.4 F 98.2 F Pulse Rate [Pulse Oximeter] 91 85 75 Respiratory Rate 18 22 16 Blood Pressure [Ri ght Arm] 133/62 153/74 H 121/67 Pulse Oximetry 94 94 93 Oxygen Delivery Me thod Room Air Room Air Room Air Labs Labs: Laboratory Results - last 24 hr 03/07/23 03/08/23 20:17 05:53 WBC 6.93 RBC 2.76 L Hgb 9.1 L 8.5 L Hct 25.7 L MCV 93 MCH 31 MCHC 33 RDW Coeff of Casie 16.0 H Plt Count 146 Neut % (Auto) 74.4 H Lymph % (Auto) 14.3 L [place] % (Auto) 9.4 Eos % (Auto) 1.0 Baso % (Auto) 0.3 Neut # (Auto) 5.20 Lymph # (Auto) 1.00 [place] # (Auto) 0.70 Eos # (Auto) 0.07 Baso # (Auto) 0.02 Abs Immat Gran (auto) 0.04 Imm/Tot Granulo (auto) 0.6 Sodium 140 Potassium 3.0 L Chloride 112 Carbon Dioxide 26 BUN 21 Creatinine 0.7 Estimated Creat Clear 57.30 Estimated GFR 90 Glucose 97 Calcium 7.9 L Total Bilirubin 0.6 AST 18 ALT 14 Alkaline Phosphatase 42 Total Protein 4.3 L Albumin 2.4 L
--- NOTE | 2023-03-08 14:51 | NUTR.NU ---
Pt seen to assess for weight loss. Currently on day three of NPO or CL. 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 Explained weight loss has been related to caring for his with cancer. He did notice that he wasn't eating well and began using Ensure periodically. Friend was present who encouraged him reminding him that his is doing much better now. He states he is eager to eat, but that his friend doctor had told him that he had diverticuli and should follow low fiber diet. Pt expressed concern that that would be limiting. RD provided pt with handout Low Fiber Nutrition Therapy per patient request. Patient did not want this reviewed at this time but was eager to take the information. Information for transitioning to a medium fiber diet when allowed was provided.
[2023-03-08] MEDS: CARBOXYMETHYLCELLULOSE (REFRESH PLUS) TEARS 1 DROP EYE-BOTH (15:33)
--- NOTE | 2023-03-08 18:37 | PC.NURSE ---
Patient was given additional bowel prep of Bisacoydal suppositiory and Miralax. No further BM prior to colonoscopy but MD aware and ok'd to proceed with procedure. Pt up with stand by assist. Advanced to regular diet this afternoon. Appetite excellent. Pt expressing anxiety regarding bowel prep, procedure and diet; further concerns/anxiety regarding 's health as he is her primary caregiver. Staff support given and pt did have several visitors this afternoon who provided encouragement and support. Denied pain and nausea.
[2023-03-08] MEDS: POTASSIUM BICARB 25 MEQ EFFERVESCENT TAB PO ×2 (19:15→20:24)
[2023-03-08] MEDS: diphenhydrAMINE 25 MG CAPSULE 50 MG PO (21:47)
[2023-03-08] MEDS: ACETAMINOPHEN 500 MG TABLET 1000 MG PO (21:47)
[2023-03-09 02:05] VITALS: BP 151/72; PULSE 88; RESP 20; TEMP 37; O2SAT 95
--- NOTE | 2023-03-09 06:16 | PC.NURSE ---
[id number]: Patient anxious about D/C home today stating I need to go somewhere where there is more help for me. Patient's daughter visited per patient request. Patient noted throughout shift that he thought he was dying and at one point asked administrative underwriter to call hospice (which he is not a patient of). Patient requests more frequent vitals to be taken on him. Patient concerned son in [place] will not get here in time. [employer] listened intently and utilized therapeutic communication to comfort patient. A1/walker/GB to BSC as patient notably shaky when standing and moving. Denies pain.
[2023-03-09 06:36] LABS: Basophils Absolute Auto 0.02 K/uL (0.00-0.30); Basophils Percent Auto 0.3 % (0.0-3.0); Eosinophils Absolute Auto 0.05 K/uL (0.00-0.50); Eosinophils Percent Auto 0.8 % (0.0-7.0); Hematocrit 24.9 % (37.0-53.0); Hemoglobin* 8.2 gm/dL (13.5-17.5); Immature Granulocytes Abs Auto 0.03 K/uL (0.00-0.30); Immature Granulocytes Pct Auto 0.5 %; Lymphocytes Percent Auto 11.4 % (20-44); Mean Corpuscular HGB Conc 33 gm/dL (32-36); Mean Corpuscular Hemoglobin 31 pg (26-34); Mean Corpuscular Volume 94 fL (80-100); Monocytes Percent Auto 10.5 % (0.0-11.0); Neutrophils Percent Auto 76.5 % (42.0-72.0); Platelet Count* 145 K/uL (140-440); RDW Coefficient of Variation % 15.7 % (11.5-15.5); Red Blood Count 2.64 m/uL (4.30-5.90); White Blood Count* 6.38 K/uL (4.50-11.00)
[2023-03-09 06:50] LABS: Chloride* 108 mmol/L (96-114); Sodium* 137 mmol/L (135-149)
[2023-03-09 06:51] LABS: Potassium* 3.4 mmol/L (3.6-5.1)
[2023-03-09 06:53] LABS: Blood Urea Nitrogen* 13 mg/dL (7-30); Carbon Dioxide* 27 mmol/L (20-32); Creatinine* 0.7 mg/dL (0.5-1.5); Estimated Glomerular Filt Rate 90 ml/min
[2023-03-09 06:54] LABS: Calcium* 8.1 mg/dL (8.4-10.6); Glucose* 103 mg/dL (60-115)
[2023-03-09 07:12] LABS: Slide Review Reflex No
[2023-03-09 09:00] VITALS: BP 168/82; PULSE 84; RESP 18; TEMP 36.8; O2SAT 95
[2023-03-09] MEDS: SERTRALINE 50 MG TABLET 25 MG PO (09:59)
[2023-03-09] MEDS: TAMSULOSIN HCL 0.4 MG CAPSULE PO (09:59)
[2023-03-09] MEDS: FINASTERIDE 5 MG TABLET PO (10:00)
[2023-03-09] MEDS: CYANOCOBALAMIN (VITAMIN B-12) 500 MCG TABLET 1000 MCG PO (10:00)
--- NOTE | 2023-03-09 12:48 | P.DS_ITS ---
DS: Providers Provider Date Seen: 03/09/23 Date of admission: 03/06/23 11:52 Primary care physician: Jennifer Carter PA-C Admitting Clinician: Virginia Jimenez MD Consults: SW, OT, PT Attending Physician on discharge: Virginia Jimenez MD Date of Discharge: 03/09/23 DS: Diagnosis Discharge Diagnosis (1) Bright red rectal bleeding: Status: Acute Problem details: - differential diagnosis includes diverticular bleed, internal hemorrhoids, peptic ulcer disease - hemodynamically stable - received 2U PRBCs on 03/06 for persistent bloody stools, which resolved during stay - EGD and colonoscopy 03/08: No acute findings noted (2) Austin's esophagus: Status: Acute (3) Ascending aorta dilation: Status: Acute Problem details: - history of this, asymptomatic. Last TTE 01/24: Final Impressions: 1. Normal LV size, moderately increased wall thickness, normal global systolic function with an estimated EF of 60 - 65%. 2. Right ventricular cavity size is normal, global systolic RV function is normal. 3. Mildly enlarged left atrium. 4. The aortic valve is trileaflet and sclerotic, no stenosis and moderate regurgitation. 5. The mitral valve is sclerotic, trace mitral regurgitation. 6. The ascending aorta is dilated with a maximal diameter of 4.1 cm. (4) Anxiety: Status: Acute Problem details: - recent stressors ('s illness, caregiver burden) - started on Zoloft February 2023, family aware of patient's anxiety and has him scheduled with a therapist, working on additional help at home - close PCP f/u as well (5) Iron deficiency anemia: Status: Acute Problem details: - long history of this, on outpatient iron supplementation, will continue upon discharge (6) BPH (benign prostatic hyperplasia): Status: Acute Problem details: - stable, continue home medications DS: Summary Hospital Course Hospital Course: Ming is a very pleasant 87-year-old male, who presented to hospital on 03/06 for diarrhea and hematochezia. During stay, he was transfused 2 units of PRBCs, and had an endoscopy/colonoscopy that were unremarkable. Symptoms resolved and likely were related to a diverticular bleed. Patient remained hemodynamically stable, discharge hemoglobin 8.2. He was having no symptoms upon discharge. Given deconditioning and weakness, seen by therapies. Sent home with a walker and home health care recommended (PT and OT). Ming and his family are also looking into home health care for his , who has been ill recently. Caregiving has been an increased stressor recently. Patient medically appropriate for discharge on 03/09, daughter updated in person and comfortable with plan. He will see his PCP next week, repeat CBC recommended at that time. Status at Discharge Functional status at discharge: uses cane/walker Overall status at discharge: patient is progressing back to baseline Time Spent with Patient Time attestation: Total time spent providing and/or coordinating discharge services: Time spent: Greater than 30 minutes Specific discharge activities: Medication reconciliation, updates and Education, care coordination Exam Narrative: Exam Narrative: GEN: Alert and oriented, sitting comfortably in bedside chair HEENT: L strabismus (unchanged from admission), no scleral icterus CV: RRR, No concerning murmurs, rubs, or gallops R: LCTA bilaterally without concerning wheezing Ab: Soft and nontender without masses Ext: wwp, no concerning edema Skin: No concerning skin lesions or rashes on exposed skin Neuro: No focal deficits Psych: Affect much improved from admission Const: Vital Signs, click to edit/add: Vital Signs - 24 hr 03/08/23 15:00 03/08/23 19:37 03/08/23 20:15 Temperature 98.2 F 98.6 F Pulse Rate [Pulse Oximeter] 83 84 78 Respiratory Rate 22 18 20 Blood Pressure [Ri ght Arm] 155/72 H 94/51 L 129/66 Pulse Oximetry 96 95 96 Oxygen Delivery Me thod Room Air Room Air Room Air 03/08/23 21:54 03/09/23 02:05 03/09/23 09:00 Temperature 98.4 F 98.6 F Pulse Rate [Pulse Oximeter] 80 88 84 Respiratory Rate 20 20 18 Blood Pressure [Ri ght Arm] 130/66 151/72 H Pulse Oximetry 95 95 Oxygen Delivery Me thod Room Air Room Air 03/09/23 09:00 Temperature 98.3 F Pulse Rate [Pulse Oximeter] 84 Respiratory Rate 18 Blood Pressure [Ri ght Arm] 168/82 H Pulse Oximetry 95 Oxygen Delivery Me thod Room Air DS: Data Data Completed and Pending Labs on day of discharge: Labs from last 24 hours 03/09/23 05:40 WBC 6.38 RBC 2.64 L Hgb 8.2 L Hct 24.9 L MCV 94 MCH 31 MCHC 33 RDW Coeff of Casie 15.7 H Plt Count 145 Neut % (Auto) 76.5 H Lymph % (Auto) 11.4 L [place] % (Auto) 10.5 Eos % (Auto) 0.8 Baso % (Auto) 0.3 Neut # (Auto) 4.90 Lymph # (Auto) 0.70 L [place] # (Auto) 0.70 Eos # (Auto) 0.05 Baso # (Auto) 0.02 Abs Immat Gran (auto) 0.03 Imm/Tot Granulo (auto) 0.5 Sodium 137 Potassium 3.4 L Chloride 108 Carbon Dioxide 27 BUN 13 Creatinine 0.7 Estimated Creat Clear 57.30 Estimated GFR 90 Glucose 103 Calcium 8.1 L Discharge Plan Discharge Disposition: Home, Self-Care Date of Admission: 03/06/23 11:52 Attending Provider on Discharge: Virginia Jimenez Primary Care Provider: Jennifer Carter Condition: Stable Anticipated Discharge Date/Time: 03/09/23 13:00 Discharge Medications: New ferrous sulfate 325 mg (65 mg iron) tablet,delayed release (DR/EC) 325 mg PO DAILY Qty: 30 0RF Continued cyanocobalamin (vitamin B-12) 1,000 mcg capsule 1,000 mcg PO DAILY finasteride 5 mg tablet 5 mg PO DAILY diphenhydramine-acetaminophen [Acetaminophen PM] 25-500 mg tablet 2 tab PO QHS omeprazole 40 mg capsule,delayed release(DR/EC) 40 mg PO DAILY sertraline 25 mg tablet 25 mg PO DAILY tamsulosin 0.4 mg capsule 0.4 mg PO DAILY Discharge Orders: Discharge Order (Routine); Ordered 03/09/23 Ordered By: Virginia Jimenez Patient Education: Iron Supplements (By mouth), Diverticulosis (DC) Additional Instructions: Buy iron supplementation over the counter (Ferrous Sulfate 325mg = 65mg) and take in the morning with some orange juice. See your PCP next week for a recheck and Hemoglobin. Low fiber diet, light activity, use walker until you feel more stable. Our Social Work team will check in Saturday regarding Home Health PT/OT. Activity Level: No strenuous activity Diet Detail: low fiber Follow Up Appointments: Jennifer Carter PA-C [Primary Care Provider] - 03/15/23 10:30 am ( d/c followup and CBC. [facility]) Forms: [employer] Info Instructions
[2023-03-09] MEDS: SODIUM CHLORIDE 0.9 % (FLUSH) 10 ML SYRINGE 5 ML IVF (12:57)
[2023-03-09] MEDS: PANTOPRAZOLE SODIUM 40 MG INJ IVP (12:57)
[2023-03-09 13:00] VITALS: BP 141/66; PULSE 76; RESP 18; TEMP 37.1; O2SAT 96
--- NOTE | 2023-03-13 14:27 | PC.SOCIAL ---
Social work: Per MD order for home care and home health aides teacher, PT/OT, called dtr who shared that pt is currently in [facility] for anxiety and expected to be discharged sometime next week. Called and faxed referral to [facility] at family request and requested they follow up to schedule appointments based on when he is discharged from [facility].
== END 2023-03-09 14:30 | disposition home or self-care (01) | DRG 378 ==
LOC: ED 09:06 → MEDSURG 11:22
PROVIDERS: Admitting Provider Family Medicine; Emergency Provider Family Medicine; PCP Physician Assistant; Visit Provider Family Medicine
DX: K92.2 Gastrointestinal hemorrhage, unspecified (principal); D62 Acute posthemorrhagic anemia; K57.30 Diverticulosis of large intestine without perforation or abscess without bleeding; R42 Dizziness and giddiness; K22.70 Barrett's esophagus without dysplasia; N40.0 Benign prostatic hyperplasia without lower urinary tract symptoms; I77.819 Aortic ectasia, unspecified site; F41.9 Anxiety disorder, unspecified; K44.9 Diaphragmatic hernia without obstruction or gangrene
CPT/HCPCS: 00813; 36415; 36430; 43235; 45378; 80048; 80053; 85018; 85025; 86850; 86900; 86901; 86922; 94761; 97116; 97161; 97165; 97535; 99100; 99284; A9270; C9113; J2371; J2704; J3490; J7030; J7050; P9016

== ENCOUNTER 2023-09-11 09:48 | Emergency (ER) | payer MEDICARE, BC, SELFPAY ==
[2023-09-11 10:00] VITALS: BP 133/74; PULSE 64; RESP 18; TEMP 36.4; O2SAT 94; BMI 25.4
--- NOTE | 2023-09-11 10:58 | ED.GENADULT ---
HPI - General Adult General Chief complaint: GI Bleed Stated complaint: Blood in diarrhea Time Seen by Provider: 09/11/23 10:54 History of Present Illness HPI narrative: reports that he has had 3 bloody stools since 429. the color is that of an stone. has hx of having an emergent colonoscopy in march due to similar sxs and was found to have diverticulitis?losis?. did need 2 units of blood at that time. is feeling fatigued. take 81 mg asa daily . hx stroke 88-year-old man presenting to the emergency depart with concern of bloody stools. Was hospitalized this last early fall with GI bleed requiring transfusion. Apparently painless abdomen at that time. On review of records it looks like was diagnosed with diverticular disease on colonoscopy. Also received upper GI. I do not appreciate that absolute source of bleeding was identified. Is tired now. Does take aspirin daily. CVA history noted. He is not short of breath. No abdominal pain. Has had 3 bloody stools beginning early this morning with last about an hour and half prior to this interview. Does not note active hemorrhoids but does report a history of hemorrhoid surgery when he was 37 years old. He has only been noting blood with stooling. Related Data Home Medications Medication Instructions Recorded Confirmed cyanocobalamin (vitamin B-12) 1,000 mcg PO DAILY 04/10/22 05/21/23 1,000 mcg capsule finasteride 5 mg tablet 5 mg PO DAILY 08/27/22 05/21/23 diphenhydramine 25 2 tab PO QHS 03/06/23 05/21/23 mg-acetaminophen 500 mg tablet (Acetaminophen PM) omeprazole 40 mg capsule,delayed 40 mg PO DAILY 03/06/23 05/21/23 release sertraline 25 mg tablet 25 mg PO DAILY 03/06/23 05/21/23 tamsulosin 0.4 mg capsule 0.4 mg PO DAILY bph 03/06/23 05/21/23 Previous Rx's Medication Instructions Recorded ferrous sulfate 325 mg (65 mg 325 mg PO DAILY #30 tabs 03/09/23 iron) tablet,delayed release Allergies Allergy/AdvReac Type Severity Reaction Status Date / Time tree nut Allergy Verified 05/21/23 09:53 Review of Systems Status of ROS: Reports: 6 or more systems reviewed and unremarkable except as noted in History and below [facility] History Ascending aorta dilation ?I77.810 - Thoracic aortic ectasia (ICD-10) Chronic GI bleeding ?K92.2 - Gastrointestinal hemorrhage, unspecified (ICD-10) Iron deficiency anemia (03/24/07) ?D50.9 - Iron deficiency anemia, unspecified (ICD-10) Anxiety ?F41.9 - Anxiety disorder, unspecified (ICD-10) Clavus ?L84 - Corns and callosities (ICD-10) Hyperlipidemia ?E78.5 - Hyperlipidemia, unspecified (ICD-10) Fracture of metacarpal bone ?S62.309A - Unspecified fracture of unspecified metacarpal bone, initial encounter for closed fracture (ICD-10) Closed dislocation of fifth metacarpal bone of right hand ?S63.266A - Dislocation of metacarpophalangeal joint of right little finger, initial encounter (ICD-10) Health care directive on file ?Z78.9 - Other specified health status (ICD-10) Hoarse voice quality ?R49.0 - Dysphonia (ICD-10) 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 (ICD-10) BPH (benign prostatic hyperplasia) ?N40.0 - Benign prostatic hyperplasia without lower urinary tract symptoms (ICD-10) Tremor ?R25.1 - Tremor, unspecified (ICD-10) Surgical History H/O hernia repair ?Z98.890 - Other specified postprocedural states (ICD-10) ?Z87.19 - Personal history of other diseases of the digestive system (ICD-10) S/P small bowel resection ?Z90.49 - Acquired absence of other specified parts of digestive tract (ICD-10) Social History Narrative: 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 Lives with in [place] (she has been undergoing health issues, has MCI). Son Taurus ([place] ) and daughter Nury ([facility]) would share medical decision making capabilities if needed. He requests DNR/DNI status. Smoked socially in college, previous social ETOH use, none now. Health care directive on file- Health care directive dated 04/13/20 sent for scanning on 04/22/20. What is your current living situation?: I presently have a place to live Problems where you live: no known problems Problems where you live details: none In the past 12 months, utilities in danger of being shut off: no In past 12 months, lack of transportation kept you from medical appts, meetings, work, or getting things needed for daily living: no In the past 12 mos, have been you worried that your food would run out before you had money to buy more?: never true In the past 12 mos, the food you bought just didn't last and you didn't have money to buy more?: never true Highest level of school completed/degree received: Doctoral degree Smoking Status: Never smoker Do you use any of these nicotine containing products: None Second hand tobacco smoke exposure: No How often do you have a drink containing alcohol: never How often do you have six or more drinks on one occasion: Never AUDIT-C Alcohol total score: 0 Non-prescribed substance use: denies use Caffeine: Yes (little coffee-decafe) How often does anyone, including family, friends and others, physically hurt you: never How often does anyone, including family, friends and others, insult or talk down to you: never How often does anyone, including family, friends and others, threaten you with harm: never How often does anyone, including family, friends and others, scream or curse at you: never Gender Identity: male service: No Exam Narrative: Exam Narrative: Very pleasant. Easily conversant. Breathing easily. Oropharynx is a little sticky. Lungs are clear. Heart with regular rate and rhythm. Abdomen is soft and nontender with normal bowel sounds. No masses appreciated. There is tremor noted upon intention movement of limbs. Extremities are well perfused without edema. Skin of good color mucous membranes are appropriately pinkish red. The later I return for anoscopy exam. I do note spot of blood in his underwear side assist him removing them. There is some blood staining of the perianal area. Trace done thrombosed hemorrhoidal tissue externally. Anoscopy does not reveal clear active bleeding but there is some fresh blood on anoscope when removed and trace clotted blood distally. Are also some small nonthrombosed internal hemorrhoids noted. Const: Vital Signs, click to edit/add: Vital Signs - 24 hr 09/11/23 10:00 Temperature 97.5 F L Pulse Rate [Pulse Oximeter] 64 Respiratory Rate 18 Blood Pressure [Ri ght Upper Arm] 133/74 Pulse Oximetry 94 Oxygen Delivery Me thod Room Air Documenting provider has reviewed patient's vital signs: yes Course Vital Signs Vital signs: Initial Vital Signs Temperature 97.5 F L 09/11/23 10:00 Temperature Source Temporal Artery Scan 09/11/23 10:00 Pulse Rate 64 09/11/23 10:00 Pulse Rhythm Regular 09/11/23 10:00 Respiratory Rate 18 09/11/23 10:00 Blood Pressure 133/74 09/11/23 10:00 Blood Pressure Mean 93 09/11/23 10:00 Blood Pressure Position Supine 09/11/23 10:00 Pulse Oximetry 94 09/11/23 10:00 Oxygen Delivery Method Room Air 09/11/23 10:00 Vital Signs Temperature 97.5 F L 09/11/23 10:00 Pulse Rate 64 09/11/23 10:00 Respiratory Rate 18 09/11/23 10:00 Blood Pressure 133/74 09/11/23 10:00 Pulse Oximetry 94 09/11/23 10:00 Oxygen Delivery Method Room Air 09/11/23 10:00 Temperature 97.5 F L 09/11/23 10:00 Pulse Rate 64 09/11/23 10:00 Respiratory Rate 18 09/11/23 10:00 Blood Pressure 133/74 09/11/23 10:00 Pulse Oximetry 94 09/11/23 10:00 Oxygen Delivery Method Room Air 09/11/23 10:00 Medications Administered Medications: Discontinued Medications Generic Name Dose Route Start Last Admin Trade Name Freq PRN Reason Stop Dose Admin Sodium Chloride 1,000 mls @ 1,000 mls/hr 09/11/23 11:07 09/11/23 11:17 0.9 % Sodium Chloride 1000 Ml IV 09/11/23 12:06 1,000 mls/hr .Q1H ONE Administration Medical Decision Making MDM Narrative Medical decision making narrative: Certainly appears to have lower GI bleeding. I am reassured by nontender abdomen. Would not appear to have diverticulitis or other infectious etiology. I suppose could be AVM? Otherwise asymptomatic with normal vitals. Will IV hydrate and check labs. Labs are reassuring with normal white count. Hemoglobin is 13.1 which is certainly higher than last evaluated. He reports that 13 is about at his baseline I think can be discharged to watchful waiting and close follow-up without more copious/persistent bleeding and benign abdominal exam and normal vital. See patient discharge plan Lab Data Lab results reviewed: Yes I reviewed the patient's lab results Labs: Lab Results 09/11/23 09/11/23 Range/Units 10:25 11:11 WBC 4.92 (4.50-11.00) K/uL RBC 4.42 (4.30-5.90) m/uL Hgb 13.2 L (13.5-17.5) gm/dL Hct 41.1 (37.0-53.0) % MCV 93 (80-100) fL MCH 30 (26-34) pg MCHC 32 (32-36) gm/dL RDW Coeff of Casie 15.4 (11.5-15.5) % Plt Count 132 L (140-440) K/uL Neut % (Auto) 69.9 (42.0-72.0) % Lymph % (Auto) 17.7 L (20-44) % [place] % (Auto) 10.2 (0.0-11.0) % Eos % (Auto) 1.6 (0.0-7.0) % Baso % (Auto) 0.4 (0.0-3.0) % Neut # (Auto) 3.44 (1.7-7.0) K/uL Lymph # (Auto) 0.90 (0.90-2.90) K/uL [place] # (Auto) 0.50 (0.00-0.90) K/UL Eos # (Auto) 0.08 (0.00-0.50) K/uL Baso # (Auto) 0.02 (0.00-0.30) K/uL Abs Immat Gran (auto) 0.01 (0.00-0.30) K/uL Imm/Tot Granulo (auto) 0.2 % Sodium 139 (135-149) mmol/L Potassium 4.4 (3.6-5.1) mmol/L Chloride 109 (96-114) mmol/L Carbon Dioxide 21 (20-32) mmol/L Anion Gap 9 (7-15) mEq/L BUN 28 (7-30) mg/dL Creatinine 0.7 (0.5-1.5) mg/dL Estimated Creat Clear 54.75 Estimated GFR 90 ml/min Glucose 106 (60-115) mg/dL Lactate 1.5 (0.5-1.9) mmol/L Calcium 8.7 (8.4-10.6) mg/dL C-Reactive Protein 0.6 (0.5-1.0) mg/dL Discharge Plan Discharge Clinical Impression: BRBPR (bright red blood per rectum) Patient Disposition: Home w/ Parent or Adult Condition: Stable Instructions: Diverticulosis (ED) Additional Instructions: Focus on hydration. Please schedule an appointment by the end of the week with your clinic/primary care provider. Return for marked increase in bleeding, increasing abdominal pain, fever, repeated vomiting, increasing weakness or shortness of breath. Prescriptions: No Action cyanocobalamin (vitamin B-12) 1,000 mcg capsule 1,000 mcg PO DAILY finasteride 5 mg tablet 5 mg PO DAILY diphenhydramine-acetaminophen [Acetaminophen PM] 25-500 mg tablet 2 tab PO QHS omeprazole 40 mg capsule,delayed release(DR/EC) 40 mg PO DAILY sertraline 25 mg tablet 25 mg PO DAILY tamsulosin 0.4 mg capsule 0.4 mg PO DAILY ferrous sulfate 325 mg (65 mg iron) tablet,delayed release (DR/EC) 325 mg PO DAILY Qty: 30 0RF Follow Up/Referrals: Jennifer Carter PA-C [Primary Care Provider] - Stand Alone Forms: [employer] Info Instructions
--- OUTSIDE RECORDS SUMMARY | 2023-09-11 11:15 | XMS_ITS ---
Author Name Unknown Organization [facility] Address [address] [place] [address] Care Team Providers Care Soda Jerker Name Role Phone Unavailable Unavailable Unavailable Surgery Details Not on file Complications Check Surgery Details section. Procedure Estimated Blood Loss Check Surgery Details section. Procedure Findings Check Surgery Details section. Procedure Specimens Taken Check Surgery Details section.
--- OUTSIDE RECORDS SUMMARY | 2023-09-11 11:15 | XMS_ITS | Clinical Summary ---
Author Name Unknown Organization [facility] Address [address] [place] [address] Care Team Providers Care Disbursing Officer Name Role Phone Unavailable Primary Care Provider Unavailabl e Source Comments Patient records contain information from all sites at [facility]. For routine questions regarding patient records, call [phone] during business hours, M-F 8:00 AM - 5:00 PM Central Time. 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 Sexual Orientation Straight 09/06/2020 10 :37 AM CONTENT CURATOR Last Filed Vital Signs Vital Sign Reading Time Taken Comments Blood Pressure 118/80 03/30/2014 9:58 AM CDT Pulse 71 03/30/2014 9:58 AM CDT Temperature - - Respiratory Rate - - Oxygen Saturation - - Inhaled Oxygen Concentration - - Weight 84.6 kg (186 lb 8.2 oz) 03/30/2014 9:58 A M CDT Height 190.6 cm (6' 3.04) 03/30/2014 9:58 AM CD T Body Mass Index 23.29 03/30/2014 9:58 AM CDT Plan of Treatment Health Maintenance Due Date Last Done Comments DTaP,Tdap,and Td Vaccines (2 - Td or Tdap) 05/01/2021 05/01/2011 COVID-19 Vaccine (2 - 2022-2 4 season) 2023 02/07/2023 Influenza Vaccine (#1) 2023 2, 05/05/2021, 06/02/2019, Additional history exists Pneumococcal vaccine (65+ years) Completed 11/15/2014, 06/30/2012, 05/09/2011 Zoster Vaccines Completed 08/27/2019, 07/06, 05/21/2018, Additional history exists
--- OUTSIDE RECORDS SUMMARY | 2023-09-11 11:15 | XMS_ITS | Encounter Summary ---
Author Name Unknown Organization [facility] Address [address] [place] [address] Care Team Providers Care Reconstructive Surgeon Name Role Phone Unavailable Primary Care Provider Unavailabl e Reason for Visit * Reason Comments Mental Health Problem Encounter Details Date Type Department Care Team (Late st Contact Info) Description 03/10/2023 9:53 AM CDT - 03/10/2023 11:00 PM CDT Emergency [facility] [address] [place] [id number] Hypokalemia (Primary Dx) Discharge Disposition: Home or Self Care Social History Tobacco Use Types Packs/Day Years Used Date Smoking Tobacco: Never Nutrition Answer Date Recorded Nutrition: EVOO Fat Source 13 01/11 Nutrition: Servings of Fruits/Vegetables per Day Not on file 01/11/2019 Dental Answer Date Recorded Dental: Regular Dentist 13 01/12/20 19 Sex and Gender Information Value Date Recorded Sex Assigned at Not on file Gender Identity Male 09/06/2020 10:37 AM 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
--- OUTSIDE RECORDS SUMMARY | 2023-09-11 11:15 | XMS_ITS | Data Portability ---
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 Large prostate on LETI. His symptoms are likely related to BPH with LUTS, particularly in abscence of dysuria, fever, and other infectious/UTI symptoms. UA is abnormal today, however, so will send for culture. We discussed management of BPH with LUTS including options of medical management with alpha-jesi therapy and/or 5-alpha reductase inhibitors including typical side effects and expectations. We also briefly discussed options for surgical interventions (Rezum, Urolift, TURP, etc) if medications do not improve symptoms. We discussed that these medications and procedures are intended to treat obstructive symptoms of enlarged prostate, but may not help with overactive bladder type symptoms. We also discussed possible reasons for elevated PSA including benign prostatic enlargement, infection, inflammation, or prostate cancer. With PSA of 4.71 last month and taking into account prostate size on LETI today as well as age, co-morbidities, etc, will initially plan for recheck in 3-6 months. 1. BPH with LUTS - continue tamsulosin from PCP (0.8 mg daily) - start finasteride 5 mg daily, side effects reviewed, he has tolerated well in the past per his report - recommend PSA recheck 3-6 months 2. Elevated PSA - PSA 4.71 on 04/05/22 - does have significant enlargement on LETI today without nodules or other concerning abnormality - recheck 3-6 months as above 3. Abnormal UA - send urine for culture today-- culture appropriate abx if indicated - [facility] [email or web address] Not available 05/23/2022 18:41:23 08/16/2022 08/16/2022 87M with BPH with LUTS and h/o elevated PSA. Large prostate on LETI in the fall. He notes the PSA from April was taken around the same time as a UTI -- elevation may have been related to infection. On recheck today, PSA now down to 2.9 from 4.7. Doing well on tamsulosin and finasteride with no bothersome side effects. Nocturia improving. 1. BPH with LUTS - continue tamsulosin from PCP (0.8 mg daily) - continue finasteride 5 mg daily - f/ in 1 year, sooner if any concerns or issues 2. Elevated PSA - PSA 4.71 on 04/05/22 --> 2.9 today on finasteride x3 months - f/u as above Will send copy of visit to Dr. Bhakat's office per patient request. [email or web address] Not available 08/16/2022 13:23:50 Plan of Treatment Reminders Order Date Submit Date Provider Last Modified By Organization Details Last Modified Time Details Appointments None recorded. Lab urinalysis, dipstick 2022 023 [email or web address] [facility], [address], [place], [address], 3 11:28:48 urinalysis, dipstick 2021 022 [email or web address] [facility], [address], [place], [address], 2 11:43:57 culture, urine 2021 022 [facility], [address], [place], [address], 10:27:56 Referral None recorded. Procedures None recorded. Surgeries None recorded. Imaging None recorded. Medication Orders finasteride 5 mg tablet 2021 022 [facility], [address], [place], [address], 12:24:56 Patient TargetsNo targets recorded. Patient InstructionsNo instructions recorded. Reason for Referral None Reported. Results Created Date Observation Date Name Description Value Unit Range Abnormal Flag LastModifiedBy Organization Detail LastModifiedTime 05/16/2005/16/2022 URINE CULTU RE final report microb iology result s Not Available [facility] [address], [place], [address], 05/20/2022 10:27:56 05/16/2005/16/2022 urina lysis , dipst ick pH-Status 7.0 Not Available [facility] [address], [place], [address], 05/16/2022 11:43:07 05/16/20 22 05/16/2022 urina lysis , dipst ick Blood-Status Trace Not Available [facility] [address], [place], [address], 05/16/2022 11:43:07 05/16/20 22 05/16/2022 urina lysis , dipst ick Leuko-Status Modera te Not Available [facility] [address], [place], [address], 05/16/2022 11:43:07 08/16/19 23 08/16/2022 urina lysis , dipst ick Color-Status Yellow Not Available [facility] [address], [place], [address], 08/16/2022 11:20:25 08/16/19 23 08/16/2022 urina lysis , dipst ick Clarity-Stat us Clear Not Available [facility] [address], [place], [address], 08/16/2022 11:20:25 08/16/19 23 08/16/2022 urina lysis , dipst ick Glucose-Stat us Negati ve Not Available [facility] [address], [place], [address], 08/16/2022 11:20:25 08/16/19 23 08/16/2022 urina lysis , dipst ick Bilirubin-St atus Negati ve Not Available [facility] [address], [place], [address], 08/16/2022 11:20:25 08/16/19 23 08/16/2022 urina lysis , dipst ick Ketones-Stat us Negati ve Not Available [facility] [address], [place], [address], 08/16/2022 11:20:25 08/16/19 23 08/16/2022 urina lysis , dipst ick Sp Glenvil-Stat us 1.015 Not Available [facility] [address], [place], [address], 08/16/2022 11:20:25 08/16/19 23 08/16/2022 urina lysis , dipst ick pH-Status 6.0 Not Available [facility] [address], [place], [address], 08/16/2022 11:20:25 08/16/19 23 08/16/2022 urina lysis , dipst ick Urobilinogen -Status 1.0 Not Available [facility] [address], [place], [address], 08/16/2022 11:20:25 08/16/19 23 08/16/2022 urina lysis , dipst ick Nitrates-Sta tus negati ve Not Available [facility] [address], [place], [address], 08/16/2022 11:20:25 08/16/19 23 08/16/2022 urina lysis , dipst ick Blood-Status Negati ve Not Available [facility] [address], [place], [address], 08/16/2022 11:20:25 08/16/19 23 08/16/2022 urina lysis , dipst ick Leuko-Status Negati ve Not Available [facility] [address], [place], [address], 08/16/2022 11:20:25 08/16/19 23 08/16/2022 urina lysis , dipst ick Specimen Type Voided Not Available [facility] [address], [place], [address], 08/16/2022 11:20:25 05/16/20 22 05/15/2022 bladd er scan (PROC ) No observ ation record ed. BARCODE Not Available 05/16/2022 18:13:10 08/20/19 23 08/16/2022 bladd er scan (PROC ) No observ ation record ed. BARCODE Not Available 08/20/2022 18:02:59 Result Notes None recorded. Procedures Surgical History Date Name Laterality Status Provider Name and Address Organization Details Recorded Time 3 Bladder Scan completed Brianda Lu PA-C [address] [place] [address],[address] [place] [address], [address], [facility] 08/16/2022 11:32:29 2 Bladder Scan completed Brianda Lu PA-C [address] [place] [address],[address], [address], [facility] 05/16/2022 12:16:05 procedure on tendon completed Radha angelo [facility] 05/16/2022 11:42:16 pelvis repair completed Radha angelo [facility] 05/16/2022 11:42:26 Hernia Repair completed Kellensimona angelo [facility] 05/16/2022 11:42:31 Cataract Surgery completed Radha angelo [facility] 05/16/2022 11:42:37 Imaging Results Imaging Date Name Status LastModified by Organiz ation Details LastModified Time 05/15/2022 bladder scan (PROC) completed [facility] Information not available 05/16/2022 18:13:10 08/16/2022 bladder scan (PROC) completed [facility] Information not available 08/20/2022 18:02:59 Procedure Notes None recorded. Medical Equipment None Reported. Allergies No known drug allergies Medications Name Sig Start Date Stop Date Status Note LastModified by Organization Details LastModified Time propranolol 60 mg tablet 05/16 completed Not Available Not Available Not Available ciprofloxacin 250 mg tablet 05/16 completed Not Available Not Available Not Available triamcinolone acetonide 0.1 % topical cream active Not Available Not Available Not Available propranolol 10 mg tablet 05/16 completed Not Available Not Available Not Available tamsulosin 0.4 mg capsule active Not Available Not Available Not Available omeprazole 20 mg capsule,delay ed release active Not Available Not Available N ot Available cefdinir 300 mg capsule 05/16 completed Not Available Not Available Not Available finasteride 5 mg tablet Take 1 tablet every day by oral route. active Not Available Not Available No t Available neomycin 3.5 mg/g-polymyxi n B 10,000 unit/g-dexame th 0.1 % eye oint active Not Available Not Available Not Available Vitals Date Recorded Body height Body mass index (BMI) Body weight Provider Name and Address Organization Details Last Updated DateTime 05/16/2022 182.88 cm 25.2 kg/m2 65374.18 g Kellenkinjaltopher RogersMartybushra angelo [facility] 05/16/2022 11:40:48 Date Recorded Body height Body mass index (BMI) Body weight Provider Name and Address Organization Details Last Updated DateTime 08/16/2022 182.88 cm 25.2 kg/m2 51368.18 g Mindi angelo [facility] 08/16/2022 11:19:56 Social History Question Answer Notes LastModified by Organizat ion Details LastModified Time Tobacco Smoking Status [facility]/16/2022 11:41:56 What Is Your Level Of Alcohol Consumption? Moderate Information not available 05/16/2022 What Is Your Level Of Caffeine Consumption? Moderate Information not available 05/16/2022 When Did You Quit Smoking? 16+yearssince lastcigarette Information not available 05/16/2022 What Was The Date Of Your Most Recent Tobacco Screening? 08/16/2022 Information not available 08/16/2022 Do You Use Any Illicit Or Recreational Drugs? No Information not available 08/16/2022 Has Tobacco Cessation Counseling Been Provided? No Information not available 08/16/2022 Do You Or Have You Ever Used Any Other Forms Of Tobacco Or Nicotine? No Information not available 08/16/2022 Sex: Male Functional Status None recorded. Mental Status None recorded. Family History Nothing Reported. Medical History Condition Response Diabetes Y Sexually Transmitted Infection N Other N Bleeding Disorder N High Blood Pressure N Kidney Stones N High Cholesterol N GERD/Acid Reflux N Heart Disease N Cancer N Lung Disease N Depression N Immunizations Vaccine Type Date Status Provider Name and Address Organization Details Recorded Time zoster recombinant 08/27/2019 completed Janki T eska petey [facility] 07/25/2023 13:52:24 zoster recombinant 05/21/2018 [facility] 13:52:24 zoster recombinant 07/24/2018 completed Janki T eska petey [facility] 07/25/2023 13:52:24 influenza, high-dose, quadrivalent 05/05/2021 completed Janki Teska petey [facility] 07/25/2023 13:52:24 COVID-19, mRNA, LNP-S, PF, 30 mcg/0.3 mL dose 09/10/2020 completed Janki Teska null [facility] 07/25/2023 13:52:24 COVID-19, mRNA, LNP-S, PF, 30 mcg/0.3 mL dose 10/01/2020 completed Janki Teska petey [facility] 07/25/2023 13:52:24 COVID-19, mRNA, LNP-S, PF, 30 mcg/0.3 mL dose 11/21/2021 completed Janki angelo, [facility] 07/25/2023 13:52:24 COVID-19, mRNA, LNP-S, PF, 30 mcg/0.3 mL dose 04/29/2021 completed Janki angelo, [facility] 07/25/2023 13:52:24 COVID-19, mRNA, LNP-S, bivalent, PF, 30 mcg/0.3 mL dose 04/21/2022 completed Janki angelo, [facility] 07/25/2023 13:52:24 pneumococcal polysaccharide PPV23 05/09/2011 completed Janki angelo, [facility] 07/25/2023 13:52:24 pneumococcal polysaccharide PPV23 06/30/2012 [facility] 13:52:24 influenza, unspecified formulation 05/03/2009 completed Janki angelo, [facility] 07/25/2023 13:52:24 Tdap 05/01/2011 [facility] 13:52:24 Pneumococcal conjugate PCV 13 11/15/2014 [facility]23 13:52:24 zoster live 08/01/2012 [facility]23 13:52:24 Influenza, high dose seasonal 05/05/2018 completed Janki angelo, [facility] 07/25/2023 13:52:24 Influenza, high dose seasonal 05/24/2015 [facility] 13:52:24 Influenza, high dose seasonal 05/31/2016 completed Janki angelo, [facility] 07/25/2023 13:52:24 Influenza, high dose seasonal 06/02/2019 [facility] 13:52:24 Influenza, high dose seasonal 06/10/2014 completed Janki angelo [facility] 07/25/2023 13:52:24 Influenza, seasonal, injectable 06/04/2006 completed Janki angelo [facility] 07/25/2023 13:52:24 Influenza, seasonal, injectable 06/14/2013 completed Janki angelo [facility] 07/25/2023 13:52:24 Influenza, seasonal, injectable 06/16/2008 completed Janki angelo [facility] 07/25/2023 13:52:24 Influenza, seasonal, injectable, preservative free 05/01/2011 completed Janki angelo [facility] 07/25/2023 13:52:24 Influenza, seasonal, injectable, preservative free 05/15/2012 completed Janki angelo [facility] 07/25/2023 13:52:24 Influenza, seasonal, injectable, preservative free 05/31/2010 completed Janki angelo [facility] 07/25/2023 13:52:24 Influenza vaccine, quadrivalent, adjuvanted 05/16/2022 completed Janki angelo [facility] 07/25/2023 13:52:33 Past Encounters Encounter ID Performer Location Encounter Start Date Encounter Closed Date Diagnosis/Indication [id number] Brianda Lu PA-C [facility] [address] [place] [address] 05/16/2022 11:26:46 05/24/2022 15:25:03 Recurrent urinary tract infection Lower urinary tract symptoms due to benign prostatic hypertrophy Prostate specific antigen above reference range [id number] Brianda Lu PA-C [facility] [address] [place] [address] 08/16/2022 11:01:37 08/20/2022 07:55:05 Recurrent urinary tract infection Lower urinary tract symptoms due to benign prostatic hypertrophy Prostate specific antigen above reference range Health Concerns Section Related Observation LastModified by Organization Detai ls LastModified Time None Recorded Concern Status LastModified by Organization Details LastModified Time None Recorded Advance Directives Directive None Recorded Payers Encounter Date Sequence Insurance Name Policy Number Policy Vigil Covered Member ID Vigil Member ID Guarantor Name 08/16/2022 1 [place] [employer] [place] COST [id number] Ming Schafer [id number] Ming Schafer 05/16/2022 1 [place] [email or web address] Ming Schafer [id number] Ming Schafer 05/16/2022 2 [facility] [id number] Ming Schafer [id number] Ming Schafer Notes Date Note Type Note Provider Name and Address Organization Details Recorded Time 05/16/2022 text/html HPI Notes: 86M w ith urinary urgency and frequency. In early March, started to notice urinary urgency and increased frequency. Has never had dysuria with these other symptoms. States he was treated with antibiotic in mid April for 1 week. Had one week off then took an additional 1 week of antibiotics. He believes he was prescribed cipro then ceftin - cipro is listed in the outside records, but no report in outside notes of a cephalosporin course. Urine culture results below as provided from outside provider. He is on 0.8 mg daily tamsulosin for BPH. Baseline nocturia 2x/night. Denies dysuria, gross hematuria, fever, or chills. He notes he was on finasteride many years ago, but states he frequently donated blood and was told he could not donate while taking finasteride. Also states he saw a urologist at [facility] many years ago for bladder crystals, but unfortunately these records are not available today. UA today trace blood, mod leuks, 30 protein PVR today 54 cc PSA Results (reviewed) 04/05/22 4.71 Labs: (reviewed) 04/08/22 UCx >100k Alpha heme strep 05/09/22 UCx >100k mixed amador Imaging: no recent abdominal imaging PMH: BPH, GERD, CARROLL, chronic anemia PSH: ventral hernia repair, small bowel resection Soc: Occ: Tobacco: former smoker (socially in college) EtOH: FHx: no FHx of prostate cancer Brianda Lu PA-C [address], [place], [address], [facility] 05/23/2022 18:41:35 08/16/2022 text/html HPI Notes: 87M w ith urinary urgency and frequency. 05/16/22: In early March, started to notice urinary urgency and increased frequency. Has never had dysuria with these other symptoms. States he was treated with antibiotic in mid April for 1 week. Had one week off then took an additional 1 week of antibiotics. He believes he was prescribed cipro then ceftin - cipro is listed in the outside records, but no report in outside notes of a cephalosporin course. Urine culture results below as provided from outside provider. He is on 0.8 mg daily tamsulosin for BPH. Baseline nocturia 2x/night. Denies dysuria, gross hematuria, fever, or chills. He notes he was on finasteride many years ago, but states he frequently donated blood and was told he could not donate while taking finasteride. Also states he saw a urologist at [facility] many years ago for bladder crystals, but unfortunately these records are not available today. 08/16/22: Here for follow up and PSA recheck. Doing well. Continues on 0.8 mg daily tamsulosin and 5 mg daily finasteride. Nocturia x1-2 usually. No further UTIs. Denies dysuria, frequency, gross hematuria, fever, or chills. PVR today 13 cc UA today trace leuks, o/w neg PSA Results (reviewed) 04/05/22 4.71 08/16/22 2.9 (on finasteride) Imaging no recent abdominal imaging PMH: BPH, GERD, CARROLL, chronic anemia PSH: ventral hernia repair, small bowel resection Soc: Occ: Tobacco: former smoker (socially in college) EtOH: FHx: no FHx of prostate cancer Brianda Lu PA-C [address] [place] [address],[address], [place], [address], [facility] 08/16/2022 13:24:05
--- OUTSIDE RECORDS SUMMARY | 2023-09-11 11:15 | XMS_ITS | Clinical Summary ---
Author Name Unknown Organization [facility] Address [place], [place] [address] Care Team Providers Care Radiation Therapy Technician Name Role Phone Jennifer Carter Primary Care Provider [phone] Allergies Active Allergy Reactions Criticality Noted Date Comments Tree Nut Angioedema 07/14/2012 Pawnee nuts Medications Medication Sig Dispensed Refills Start Date End Date Status omeprazole (PRILOSEC) 40 mg Delayed-Release capsuleIndication s:Chronic GERD Take 1 Capsule (40 mg) by mouth once daily before a meal. 90 Capsule 3 02/07/2023 Active tamsulosin (FLOMAX) 0.4 mg capsuleIndication s:BPH without urinary obstruction Take 1 Capsule (0.4 mg) by mouth once daily after a meal. 90 Capsule 3 02/07/2023 Active finasteride (PROSCAR) 5 mg tabletIndications :BPH without urinary obstruction Take 1 Tablet (5 mg) by mouth every morning. 90 Tablet 3 02/07/2023 Active ferrous sulfate, 65 mg elemental, 324 mg (65 mg iron) Delayed-Release tabletIndications :iron deficiency anemia Take 1 Tablet (324 mg) by mouth once daily. 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 90 Tablet 3 04/22/2023 Active atorvastatin (LIPITOR) 40 mg tabletIndications :Cerebrovascular accident (CVA), unspecified mechanism (HC) Take 1 Tablet (40 mg) by mouth at bedtime. 90 Tablet 3 04/22/2023 Active cyanocobalamin (VITAMIN B12) 1,000 mcg tabletIndications :prevention of vitamin B12 deficiency Take 1 Tablet (1,000 mcg) by mouth once daily. 90 Tablet 3 04/22/2023 Active sertraline (ZOLOFT) 100 mg tabletIndications :Current severe episode of major depressive disorder with psychotic features without prior episode (HC) Take 1.5 Tablets (150 mg) by mouth every morning. 135 Tablet 3 06/28/2023 Active propranoloL (INDERAL) 40 mg tabletIndications :Tremors of nervous system Take 1 Tablet (40 mg) by mouth two times daily. 180 Tablet 4 08/02/2023 Active ARIPiprazole (ABILIFY) 5 mg tabletIndications :Current severe episode of major depressive disorder with psychotic features without prior episode (HC) Take 1 Tablet (5 mg) by mouth every morning. 90 Tablet 3 04/22/2023 08/29/2023 Discontinued (*Med complete/Reg imen complete/Lev el of care change) propranoloL (INDERAL) 20 mg tabletIndications :Anxiety,Tremor Take 1 Tablet (20 mg) by mouth two times daily. 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 03/13/2023 Anxiety 03/13/2023 CARROLL (obstructive sleep apnea) 02/18/2023 Chronic GERD 02/09/2023 BPH without urinary obstruction 02/09/2023 Iron deficiency anemia 02/09/2023 B12 deficiency 02/09/2023 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 Ventral hernia, unspecified, without mention of obstruction or gangrene 05/07/2011 Encounters Date Type Department Care Team Description 09/11/2023 Nurse Triage [facility] [address] [place] [address] Jennifer Carter PA Rectal Problem 09/10/2023 Medical Messaging [facility] [address] [place] [address] Jennifer Carter PA More PT/OT Rehab desired 08/27/2023 8:30 AM MANAGER TRUCK Office Visit [facility] [address] [place] [address] Jennifer Carter PA Follow Up (Discuss tremor-wants to know if there is anything else that can help with this-gabapentin didn't seem to work so he stopped it) 08/27/2023 Telephone [facility] [place] [facility] [address] [place] [address] Harshad Yin MD Referral 08/27/2023 Travel 08/20/2023 Telephone [facility] [address] [place] [address] Jennifer Carter PA Medication Management 08/02/2023 10:30 AM MANAGER TRUCK Office Visit [facility] [address] [place] [address] Ishan Aldana MD Follow Up (3 months S/P pacemaker implant) 08/02/2023 Travel 07/15/2023 Refill [facility] [address] [place] [address] Jennifer Carter PA Refill Request (Gabapentin) 07/05/2023 Procedure Only [facility] [address] [place] [id number] Device Check (Remote Medtronic Dual Lead P... 07/02/2023 Telephone [facility] [address] [place] [phone] Chavez Butt MD Questions (Re: pacemaker) 06/26/2023 Refill [facility] [address] [place] [address] Jennifer Carter PA Refill Request (sertraline) 06/12/2023 10:00 AM MANAGER TRUCK Procedure Only [facility] [address] [facility] [address] [place] [address] Device Check (ONE WEEK POST-OP MEDTRONIC D... 06/12/2023 Travel from Last 3 Months Immunizations Name Administration Dates Next Due COVID-19 Vaccine Spikevax (M oderna 50mcg/0.5mL) 12YO+ [id number] Formula PF 05/24/2023 COVID-19 vaccine (Pfizer-Bio NTech 30mcg/0.3mL) 12YO+ BIVALENT PF, MDV 02/07/2023 Influenza Virus, Unspecified 05/03/2009 Influenza, High-dose Inactivated 019,05/05/2018,05/31/2016,2014,06/10/2014 Influenza, High-dose Quadriv alent Inactivated 05/05/2021 Influenza, IIV3 (Age >=3 years) 06/14/20 13,05/15/2012,05/01/2011,2007,06/04/2006 Influenza, Inactivated AIIV4 (Age 65+ Years) Preserv Free 05/24/2023,05/16/2022 Pneumococcal Poly,23-Valent (Pneumovax) 06/30/2012,05/09/2011 Pneumococcal conj 13-Valent (Prevnar 13) 11/15/2014 Tdap 05/01/2011 Zoster (Shingrix-RZV, recombinant) 08/27/2019,,05/21/2018 Zoster (Zostavax-ZVL, live) 08/01/2012 Family History Relation Name Status Comments Father Mother Social History Tobacco Use Types Packs/Day Years Used Date Smoking Tobacco: Former Cigarettes Smokeless Tobacco: Never Tobacco Cessation:Counseling Given: Not Answered Alcohol Use Standard Drinks/Week Comments Not Currently 0 (1 standard drink = 0.6 oz pur e alcohol) PHQ-2 Answer Date Recorded PHQ-2 TOTAL SCORE 4 03/12/2023 Social Connections Answer Date Recorded Frequency of Communication with Friends and Fami ly 0 03/28/2023 Financial Resource Strain Answer Date R ecorded Difficulty of Paying Living Expenses 3 03/28/2023 Difficulty of Paying Living Expenses Not on file 03/28/2023 Food Insecurity Answer Date Recorded Worried About Running Out of Food in the Last Ye ar 1 03/28/2023 Transportation Needs Answer Date Record ed Lack of Transportation (Medical) 1 03/28/2023 Housing Stability Answer Date Recorded Unable to Pay for Housing in the Last Year 1 03/28/2023 Sex and Gender Information Value Date Recorded Sex Assigned at Not on file Gender Identity Not on file Sexual Orientation Not on file Obstetrics History Last Filed Vital Signs Vital Sign Reading Time Taken Comments Blood Pressure 117/71 08/27/2023 8:34 AM MANAGER TRUCK Pulse 73 08/27/2023 8:34 AM MANAGER TRUCK Temperature 36.6 ??C (97.8 ??F) 06/05/2023 6:23 AM CD T Respiratory Rate 16 08/02/2023 10:24 AM MANAGER TRUCK Oxygen Saturation 95% 08/27/2023 8:34 AM MANAGER TRUCK Inhaled Oxygen Concentration - - Weight 82.1 kg (181 lb) 08/27/2023 8:34 AM MANAGER TRUCK Height 180.3 cm (5' 11) 08/02/2023 10:24 AM MANAGER TRUCK Body Mass Index 25.24 08/02/2023 10:24 AM MANAGER TRUCK Plan of Treatment Upcoming Encounters Date Type Department Care Team (Late st Contact Info) Description 10/23/2023 Procedure Only [facility] [address] [facility] [address] [place] [address] 10/30/2023 1:00 PM CDT Office Visit [facility] [place] [facility] [address] [place] [address] Harshad Yin MD [address] [place] [address] Health Maintenance Due Date Last Done Comments Tetanus booster 05/01/2021 05/01/2011 Medicare Wellness for age 65+ 02/08/2024 02/07/2023 Depression screening for age 12+ 03/16/2024 03/16/2023, 03/15/2023, 03/14/2023, Additional history exists BMI (ht and wt on same day) for age 18+ 08/02/2024 08/02/2023, 05/27/2023, 04/29/2023, Additional history exists Tdap Completed 05/01/2011 Pneumococcal series for age 65+ Completed 11/15/2014, 06/30/2012, 05/09/2011 Zoster (shingles) series for age 50+ Completed 08/27/2019, 07/24/2018, 05/21/2018, Additional history exists COVID-19 vaccine series Completed 05/24/20, 02/07/2023, 04/21/2022, Additional history exists Influenza for age 65+ Completed 05/24/2023 , 05/16/2022, 05/05/2021, Additional history exists Medical Devices Implanted Type Area Rn Baby Device Identifier Shelf Expiration Date Model / Serial / Lot Mesh Ventralex St Lg Circ 8.0cm - [id number] Implanted:Qty: 1 on 07/14/2012 at [facility] N/A: Abdomen DAVOL 04/05/2014 [id number] / / [id number] Advance Directives Latest Code Status on File Code Status Date Activated Date Inactivated Comments Full Code 06/05/2023 9:59 AM 06/05/2023 9:25 PM Question Answer Comments Code Status Discussion: Reviewed Preferences Code Status History Code Status Date Activated Date Inactivated Comments DNR 03/23/2023 2:19 AM 03/27/2023 4:54 PM Question Answer Comments Code Status Discussion: Reviewed Preferences DNR 03/17/2023 7:19 PM 03/22/2023 6:51 PM Question Answer Comments Code Status Discussion: Reviewed Preferences Full Code 03/17/2023 6:59 PM 03/17/2023 7:19 PM Question Answer Comments Code Status Discussion: Reviewed Preferences Full Code 03/12/2023 3:35 PM 03/17/2023 6:45 PM Question Answer Comments Code Status Discussion: Reviewed Preferences Care Teams Radiation Therapy Technician Relationship Specialty Start Date End Date Jennifer Carter PA [address] [place] [address] PCP - General Physician Lead Recoverer 02/09/23
[2023-09-11] MEDS: 0.9 % SODIUM CHLORIDE 1000 ml 1,000 ML IV (11:17)
[2023-09-11 11:20] LABS: Lactate* 1.5 mmol/L (0.5-1.9)
[2023-09-11 11:23] LABS: Basophils Absolute Auto 0.02 K/uL (0.00-0.30); Basophils Percent Auto 0.4 % (0.0-3.0); Eosinophils Absolute Auto 0.08 K/uL (0.00-0.50); Eosinophils Percent Auto 1.6 % (0.0-7.0); Hematocrit 41.1 % (37.0-53.0); Hemoglobin* 13.2 gm/dL (13.5-17.5); Immature Granulocytes Abs Auto 0.01 K/uL (0.00-0.30); Immature Granulocytes Pct Auto 0.2 %; Lymphocytes Percent Auto 17.7 % (20-44); Mean Corpuscular HGB Conc 32 gm/dL (32-36); Mean Corpuscular Hemoglobin 30 pg (26-34); Mean Corpuscular Volume 93 fL (80-100); Monocytes Percent Auto 10.2 % (0.0-11.0); Neutrophils Absolute Auto 3.44 K/uL (1.7-7.0); Neutrophils Percent Auto 69.9 % (42.0-72.0); Platelet Count* 132 K/uL (140-440); RDW Coefficient of Variation % 15.4 % (11.5-15.5); Red Blood Count 4.42 m/uL (4.30-5.90); White Blood Count* 4.92 K/uL (4.50-11.00)
[2023-09-11 11:25] LABS: Slide Review Reflex No
[2023-09-11 11:43] LABS: Chloride* 109 mmol/L (96-114); Sodium* 139 mmol/L (135-149)
[2023-09-11 11:44] LABS: Potassium* 4.4 mmol/L (3.6-5.1)
[2023-09-11 11:46] LABS: Creatinine* 0.7 mg/dL (0.5-1.5); Est. Creatinine Clearance* 54.75; Estimated Glomerular Filt Rate 90 ml/min
[2023-09-11 11:47] LABS: Anion Gap 9 mEq/L (7-15); Blood Urea Nitrogen* 28 mg/dL (7-30); Calcium* 8.7 mg/dL (8.4-10.6); Carbon Dioxide* 21 mmol/L (20-32); Glucose* 106 mg/dL (60-115)
[2023-09-11 11:50] LABS: C Reactive Protein* 0.6 mg/dL (0.5-1.0)
== END 2023-09-11 12:40 | disposition home or self-care (01) ==
PROVIDERS: Emergency Provider Family Medicine; PCP Physician Assistant
DX: K62.5 Hemorrhage of anus and rectum (principal)
CPT/HCPCS: 36415; 80048; 83605; 85025; 86140; 99283; 99284; J7030

== ENCOUNTER 2024-01-22 14:30 | Outpatient (RCR) | payer MEDICARE, BC, SELFPAY | END 2024-02-28 17:15 | disposition home or self-care (01) | PROVIDERS: PCP Physician Assistant; Visit Provider Physician Assistant | DX: R29.898 Other symptoms and signs involving the musculoskeletal system (principal); R26.9 Unspecified abnormalities of gait and mobility; Z51.89 Encounter for other specified aftercare | CPT/HCPCS: 97110; 97112; 97161; 97530 ==

== ENCOUNTER 2024-03-28 16:21 | Inpatient (IN) | payer MEDICARE, BC, SELFPAY ==
[2024-03-28 16:30] VITALS: BP 121/107; PULSE 76; RESP 18; TEMP 35.8; O2SAT 91
--- NOTE | 2024-03-28 16:38 | CRLHL7_ITS ---
For Patients: As a result of the Cures Act, medical imaging exams and procedure reports are released immediately into your electronic medical record. You may view this report before your referring provider. If you have questions, please contact your health care provider. Indication: Fall, pain Technique: Two views left femur IMPRESSION: Mildly displaced subcapital fracture of the left proximal femur. Vascular calcifications. Fixation hardware about the symphysis pubis. Dictated by Hollis Nathan MD @ 03/28/2024 5:37:49 PM (Electronically Signed)
--- NOTE | 2024-03-28 16:39 | CRLHL7_ITS ---
For Patients: As a result of the Century Cures Act, medical imaging exams and procedure reports are released immediately into your electronic medical record. You may view this report before your referring provider. If you have questions, please contact your health care provider. INDICATION: Fall. COMPARISON: 04/16/2016. TECHNIQUE: Noncontrast CT head. FINDINGS: Moderate generalized volume loss. Focal encephalomalacia gliosis of old infarct of the parasagittal left parietal lobe. Ex vacuo dilatation of the posterior horn of left lateral ventricle. Patchy low-attenuation change within the white matter consistent with chronic deep white matter small vessel ischemic changes. No acute intracranial hemorrhage, acute infarct, mass effect, or fracture. No midline shift. No abnormal ventricular dilatation. Normal calvarium and skull base. Visualized paranasal sinuses mastoid air cells are clear. Normal orbits bilaterally. IMPRESSION: 1. No acute intracranial abnormality. 2. Moderate generalized cerebral volume loss. Encephalomalacia and gliosis of old infarct of the parasagittal left parietal lobe. Chronic deep white matter small vessel ischemic changes. Please note that all CT scans at this facility use dose modulation, iterative reconstruction, and/or weight-based dosing when appropriate to reduce radiation dose to as low as reasonably achievable. Dictated by Savage Richmond MD @ 03/28/2024 5:30:56 PM (Electronically Signed)
--- NOTE | 2024-03-28 16:39 | CRLHL7_ITS ---
For Patients: As a result of the Cures Act, medical imaging exams and procedure reports are released immediately into your electronic medical record. You may view this report before your referring provider. If you have questions, please contact your health care provider. Indication: Fall, pain Technique: AP pelvis Comparison: None Findings: Mildly displaced fracture of the left proximal femur. Chronic deformity of the right pubic rami and right sacrum. Fixation hardware across the symphysis pubis. Impression: Acute left femoral neck fracture. Dictated by Hollis Nathan MD @ 03/28/2024 5:40:28 PM (Electronically Signed)
--- NOTE | 2024-03-28 16:39 | CRLHL7_ITS ---
For Patients: As a result of the Cures Act, medical imaging exams and procedure reports are released immediately into your electronic medical record. You may view this report before your referring provider. If you have questions, please contact your health care provider. Indication: FALL. SHOULDER PAIN. HX OF CLAVICLE FRACTURE Technique: Left shoulder 3 views. Comparison: None. Findings: Old mid left clavicle fracture is present. There is also a new mildly displaced fracture of the distal clavicle. Degenerative changes. Old left rib fractures. Impression: Acute fracture of the distal left clavicle. Dictated by Hollis Nathan MD @ 03/28/2024 5:39:14 PM (Electronically Signed)
--- NOTE | 2024-03-28 16:41 | ED_ITS ---
HPI - General Adult General Chief complaint: Fall/Minor Trauma Stated complaint: Fall, L shoulder/leg injury Time Seen by Provider: 03/28/24 16:27 History of Present Illness HPI narrative: [age] year white male who has had a history of a stroke presents with generalized weakness, brief dizziness after he fell outside. He reports that his left leg for the last few days has been perhaps just a little bit weaker than it has been. He does not recall any headache chest pain breathing problem. No acute onset of this issue. He is on a baby aspirin. He fell in the backyard. Reports that he injured his left shoulder area and has pain when he walks in his left feet femoral area on the left there is no swelling or injury noted to his leg or thigh. He does have a little bit of swelling about his trapezius muscle in AC joint on the left he is able to move his shoulder on the left he denies neck pain back pain. He fell from a standing height. His Brian coma Scale is 15. He is really true struggling to walk given the discomfort in his thigh and shoulder. He typically uses a cane. Related Data Home Medications ?Medication ?Instructions ?Recorded ?Confirmed cyanocobalamin (vitamin B-12) 1,000 mcg PO DAILY 04/10/22 12/10/23 1,000 mcg capsule finasteride 5 mg tablet 5 mg PO DAILY 08/27/22 12/10/23 omeprazole 40 mg capsule,delayed 40 mg PO DAILY 03/06/23 12/10/23 release sertraline 25 mg tablet 25 mg PO DAILY 03/06/23 12/10/23 tamsulosin 0.4 mg capsule 0.4 mg PO DAILY bph 03/06/23 12/10/23 aspirin 81 mg tablet,delayed 81 mg PO QDAY 09/19/23 12/10/23 release propranolol 40 mg tablet 40 mg PO BID 09/19/23 12/10/23 diphenhydramine 25 2 tab PO QHS PRN 12/10/23 12/10/23 mg-acetaminophen 500 mg tablet (Acetaminophen PM) loracin .Route 12/10/23 Previous Rx's ?Medication ?Instructions ?Recorded ferrous sulfate 325 mg (65 mg 325 mg PO DAILY #30 tabs 03/09/23 iron) tablet,delayed release Allergies Allergy/AdvReac Type Severity Reaction Status Date / Time tree nut Allergy Verified 12/10/23 15:31 Review of Systems Status of ROS: Reports: 6 or more systems reviewed and unremarkable except as noted in History and below [facility] Medical History Atypical nevus ?D22.9 - Melanocytic nevi, unspecified (ICD-10) Ascending aorta dilation ?I77.810 - Thoracic aortic ectasia (ICD-10) Chronic GI bleeding ?K92.2 - Gastrointestinal hemorrhage, unspecified (ICD-10) Iron deficiency anemia (03/24/07) ?D50.9 - Iron deficiency anemia, unspecified (ICD-10) Anxiety ?F41.9 - Anxiety disorder, unspecified (ICD-10) Clavus ?L84 - Corns and callosities (ICD-10) Hyperlipidemia ?E78.5 - Hyperlipidemia, unspecified (ICD-10) Fracture of metacarpal bone ?S62.309A - Unspecified fracture of unspecified metacarpal bone, initial encounter for closed fracture (ICD-10) Closed dislocation of fifth metacarpal bone of right hand ?S63.266A - Dislocation of metacarpophalangeal joint of right little finger, initial encounter (ICD-10) Health care directive on file ?Z78.9 - Other specified health status (ICD-10) Hoarse voice quality ?R49.0 - Dysphonia (ICD-10) 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 (ICD-10) BPH (benign prostatic hyperplasia) ?N40.0 - Benign prostatic hyperplasia without lower urinary tract symptoms (ICD-10) Tremor ?R25.1 - Tremor, unspecified (ICD-10) Surgical History H/O hernia repair ?Z98.890 - Other specified postprocedural states (ICD-10) ?Z87.19 - Personal history of other diseases of the digestive system (ICD-10) S/P small bowel resection ?Z90.49 - Acquired absence of other specified parts of digestive tract (ICD- 10) Social History Narrative: 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 Lives with in [place] (she has been undergoing health issues, has MCI). Son Taurus ZeeIN ) and daughter Nury ([facility]) would share medical decision making capabilities if needed. He requests DNR/DNI status. Smoked socially in college, previous social ETOH use, none now. Health care directive on file- Health care directive dated 04/13/20 sent for scanning on 04/22/20. What is your current living situation?: I presently have a place to live Problems where you live: no known problems Problems where you live details: none In the past 12 months, utilities in danger of being shut off: no In past 12 months, lack of transportation kept you from medical appts, meetings, work, or getting things needed for daily living: no In the past 12 mos, have been you worried that your food would run out before you had money to buy more?: never true In the past 12 mos, the food you bought just didn't last and you didn't have money to buy more?: never true Highest level of school completed/degree received: Doctoral degree Smoking Status: Never smoker Do you use any of these nicotine containing products: None Second hand tobacco smoke exposure: No How often do you have a drink containing alcohol: never How often do you have six or more drinks on one occasion: Never AUDIT-C Alcohol total score: 0 Non-prescribed substance use: denies use Caffeine: Yes (little coffee-decafe) How often does anyone, including family, friends and others, physically hurt you : never How often does anyone, including family, friends and others, insult or talk down to you: never How often does anyone, including family, friends and others, threaten you with harm: never How often does anyone, including family, friends and others, scream or curse at you: never Gender Identity: male service: No Exam Narrative: Exam Narrative: Objective: Patient's vital signs show elevated diastolic pressure, his O2 sat is 91% on room air He is alert orient x3 very pleasant man HEENT is unremarkable no tenderness to his head no facial asymmetry Neck is supple no midline tenderness range of motion within normal Left shoulder shows a abrasion over the last area of the posterior shoulder, he has got some swelling over the trapezius muscle area Back exam unremarkable pulse regular abdomen benign pelvis stable he is able to flex extend his left lower extremity he has got no palpable pain or disc comfort in his thigh He is able to take a couple of steps but feels very weak and lightheaded. Feels like the pain in his legs going to cause him to fall. Const: Vital Signs, click to edit/add: Vital Signs - 24 hr 03/28/24 16:30 03/28/24 17:47 Temperature 96.5 F L Pulse Rate [Pulse Oximeter] 76 61 Respiratory Rate 18 18 Blood Pressure [Ri ght Upper Arm] 121/107 H 137/81 Pulse Oximetry 91 90 Oxygen Delivery Me thod Room Air Room Air Course Vital Signs Vital signs: Initial Vital Signs Temperature 96.5 F L 03/28/24 16:30 Temperature Source Temporal Artery Scan 03/28/24 16:30 Pulse Rate 76 03/28/24 16:30 Respiratory Rate 18 03/28/24 16:30 Blood Pressure 121/107 H 03/28/24 16:30 Blood Pressure Mean 111 H 03/28/24 16:30 Blood Pressure Position Sitting 03/28/24 16:30 Pulse Oximetry 91 03/28/24 16:30 Oxygen Delivery Method Room Air 03/28/24 16:30 Vital Signs Temperature 96.5 F L 03/28/24 16:30 Pulse Rate 76 03/28/24 16:30 Respiratory Rate 18 03/28/24 16:30 Blood Pressure 121/107 H 03/28/24 16:30 Pulse Oximetry 91 03/28/24 16:30 Oxygen Delivery Method Room Air 03/28/24 16:30 Temperature 96.5 F L 03/28/24 16:30 Pulse Rate 61 03/28/24 17:47 Respiratory Rate 18 03/28/24 17:47 Blood Pressure 137/81 03/28/24 17:47 Pulse Oximetry 90 03/28/24 17:47 Oxygen Delivery Method Room Air 03/28/24 17:47 Medications Administered Medications: Discontinued Medications Generic Name Dose Route Start Last Admin Trade Name Freq PRN Reason Stop Dose Admin Sodium Chloride 500 mls @ 500 mls/hr 03/28/24 16:38 03/28/24 18:09 0.9 % Sodium Chloride 500 Ml IV 03/28/24 17:37 Infused .Q1H ONE Infusion Morphine Sulfate 2 mg 03/28/24 16:38 03/28/24 17:33 Morphine 4 Mg/Ml Inj IVP 03/28/24 16:39 2 mg ONCE ONE Administration Medical Decision Making MDM Narrative Medical decision making narrative: [age] year white male who fell, history of a stroke, history of imbalance and weakness, perhaps this is worse. He is on aspirin. At this point I think it be reasonable to recede T is head, x-rays pelvis and left thigh/femur. Will check an x-ray of his left shoulder. Will check electrolytes. Will get a 500 mL normal saline bolus. The patient this point really can not go home as he can not walk safely so I think probably all observation status in the hospital and planned more advanced care should he not improve would be reasonable. Certainly he may improve his leg discomfort and may be able to go home if he gets PT clearance would recommend PT assessment. Will discuss with hospitalist. Addendum 5:39 p.m.: The patient has a femoral neck fracture minimally dis placed. Labs look reassuring thus far. His shoulder shows a clavicle fracture on the left. Patient will need to be admitted. Will need to consult contemplate operative repair. Will discuss with the hospitalist. Arm sling ordered. Head CT looks like chronic changes no acute changes Lab Data Labs: Lab Results 03/28/24 Range/Units 17:20 WBC 7.79 (4.50-11.00) K/uL RBC 4.61 (4.30-5.90) m/uL Hgb 14.7 (13.5-17.5) gm/dL Hct 45.2 (37.0-53.0) % MCV 98 (80-100) fL MCH 32 (26-34) pg MCHC 33 (32-36) gm/dL RDW Coeff of Casie 14.1 (11.5-15.5) % Plt Count 93 L (140-440) K/uL Neut % (Auto) 80.0 H (42.0-72.0) % Lymph % (Auto) 9.1 L (20-44) % Carlisle % (Auto) 9.1 (0.0-11.0) % Eos % (Auto) 1.0 (0.0-7.0) % Baso % (Auto) 0.3 (0.0-3.0) % Neut # (Auto) 6.20 (1.7-7.0) K/uL Lymph # (Auto) 0.70 L (0.90-2.90) K/uL Carlisle # (Auto) 0.70 (0.00-0.90) K/UL Eos # (Auto) 0.08 (0.00-0.50) K/uL Baso # (Auto) 0.02 (0.00-0.30) K/uL Abs Immat Gran (auto) 0.04 (0.00-0.30) K/uL Imm/Tot Granulo (auto) 0.5 % INR 1.35 H (0.91-1.10) APTT 45 H (23-33) Seconds Sodium 137 (135-149) mmol/L Potassium 4.3 (3.6-5.1) mmol/L Chloride 105 (96-114) mmol/L Carbon Dioxide 26 (20-32) mmol/L Anion Gap 6 L (7-15) mEq/L BUN 30 (7-30) mg/dL Creatinine 0.8 (0.5-1.5) mg/dL Estimated GFR 86 ml/min Glucose 104 (60-115) mg/dL Calcium 9.3 (8.4-10.6) mg/dL Discharge Plan Discharge Clinical Impression: Weakness, Fall, History of stroke, Closed fracture of left clavicle, Closed fracture of neck of left femur Patient Disposition: Admitted As Observation
--- NOTE | 2024-03-28 17:23 | CRLHL7_ITS ---
For Patients: As a result of the Century Cures Act, medical imaging exams and procedure reports are released immediately into your electronic medical record. You may view this report before your referring provider. If you have questions, please contact your health care provider. INDICATION: Fall. COMPARISON: Today`s radiographs of the pelvis, left hip and left femur TECHNIQUE: CT of the pelvis without intravenous contrast. Please note that all CT scans at this facility use dose modulation, iterative reconstruction, and/or weight-based dosing when appropriate to reduce radiation dose to as low as reasonably achievable. FINDINGS: The study is performed without intravenous contrast. This limits the sensitivity of the exam for the detection bowel pathology, focal lesions of the pelvic viscera and vascular pathology including significant vascular stenosis, occlusion and dissection. SKELETON AND BODY WALL Nondisplaced left subcapital femoral neck fracture. Plate and screw fixation of the symphysis pubis. Chronic fracture deformities of the right inferior pubic ramus and right sacral ala consistent with an old anteroposterior compression injury. PELVIC CAVITY Sigmoid diverticulosis without associated inflammatory changes. No bladder lesion is identified. No significant ascites or free fluid. No incidental adenopathy. IMPRESSION: Nondisplaced left subcapital femoral neck fracture. Please note that all CT scans at this facility use dose modulation, iterative reconstruction, and/or weight-based dosing when appropriate to reduce radiation dose to as low as reasonably achievable. Dictated by Enrike Buenrostro MD @ 03/28/2024 6:03:20 PM (Electronically Signed)
[2024-03-28 17:27] LABS: Basophils Absolute Auto 0.02 K/uL (0.00-0.30); Basophils Percent Auto 0.3 % (0.0-3.0); Eosinophils Absolute Auto 0.08 K/uL (0.00-0.50); Hematocrit 45.2 % (37.0-53.0); Hemoglobin* 14.7 gm/dL (13.5-17.5); Immature Granulocytes Abs Auto 0.04 K/uL (0.00-0.30); Immature Granulocytes Pct Auto 0.5 %; Lymphocytes Percent Auto 9.1 % (20-44); Mean Corpuscular HGB Conc 33 gm/dL (32-36); Mean Corpuscular Hemoglobin 32 pg (26-34); Mean Corpuscular Volume 98 fL (80-100); Monocytes Percent Auto 9.1 % (0.0-11.0); Platelet Count* 93 K/uL (140-440); RDW Coefficient of Variation % 14.1 % (11.5-15.5); Red Blood Count 4.61 m/uL (4.30-5.90); White Blood Count* 7.79 K/uL (4.50-11.00)
[2024-03-28 17:30] LABS: Slide Review Reflex No
[2024-03-28] MEDS: MORPHINE 4 MG/ML INJ 2 MG IVP (17:33)
[2024-03-28] MEDS: 0.9 % SODIUM CHLORIDE 500 ML 500 ML IV (17:33)
[2024-03-28 17:40] LABS: Chloride* 105 mmol/L (96-114); Potassium* 4.3 mmol/L (3.6-5.1); Sodium* 137 mmol/L (135-149)
[2024-03-28 17:42] LABS: Creatinine* 0.8 mg/dL (0.5-1.5); Estimated Glomerular Filt Rate 86 ml/min
[2024-03-28 17:43] LABS: Anion Gap 6 mEq/L (7-15); Blood Urea Nitrogen* 30 mg/dL (7-30); Calcium* 9.3 mg/dL (8.4-10.6); Carbon Dioxide* 26 mmol/L (20-32); Glucose* 104 mg/dL (60-115)
[2024-03-28 17:47] VITALS: BP 137/81; PULSE 61; RESP 18; O2SAT 90
--- OUTSIDE RECORDS SUMMARY | 2024-03-28 18:01 | XMS_ITS ---
Author Organization [facility] Address [address] [place] [address] Care Team Providers Care Retail Event Assistant Name Role Phone Unavailable Unavailable Unavailable Surgery Details Not on file Complications Check Surgery Details section. Procedure Estimated Blood Loss Check Surgery Details section. Procedure Findings Check Surgery Details section. Procedure Specimens Taken Check Surgery Details section.
--- OUTSIDE RECORDS SUMMARY | 2024-03-28 18:01 | XMS_ITS | Clinical Summary ---
Author Organization [facility] Address [place], [place] [address] Care Team Providers Care Hard Rock Miner Name Role Phone Jennifer Carter Primary Care Provider [phone] Allergies Active Allergy Reactions Criticality Noted Date Comments Tree Nut Angioedema 07/14/2012 [place] nuts Medications Medication Sig Dispensed Refills Start Date End Date Status propranoloL (INDERAL) 40 mg tabletIndications: Tremors of nervous system Take 1 Tablet (40 mg) by mouth two times daily. 180 Tablet 4 08/02/2023 Active omeprazole (PRILOSEC) 40 mg Delayed-Release capsuleIndications :Chronic GERD Take 1 Capsule (40 mg) by mouth once daily before a meal. 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 90 Tablet 3 03/02/2024 Active atorvastatin (LIPITOR) 40 mg tabletIndications: Cerebrovascular accident (CVA), unspecified mechanism (HC) Take 1 Tablet (40 mg) by mouth at bedtime. 90 Tablet 3 03/02/2024 Active cyanocobalamin (VITAMIN B12) 1,000 mcg tabletIndications: prevention of vitamin B12 deficiency Take 1 Tablet (1,000 mcg) by mouth once daily. 03/02/2024 Active ferrous sulfate, 65 mg elemental, 324 mg (65 mg iron) Delayed-Release tabletIndications: iron deficiency anemia Take 1 Tablet (324 mg) by mouth once daily. 03/02/2024 Active finasteride (PROSCAR) 5 mg tabletIndications: BPH without urinary obstruction Take 1 Tablet (5 mg) by mouth once daily in the morning. 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 135 Tablet 3 03/02/2024 Active tamsulosin (FLOMAX) 0.4 mg capsuleIndications :BPH without urinary obstruction Take 1 Capsule (0.4 mg) by mouth once daily after a meal. 90 Capsule 3 03/02/2024 Active tamsulosin (FLOMAX) 0.4 mg capsuleIndications :BPH without urinary obstruction Take 1 Capsule (0.4 mg) by mouth once daily after a meal. 90 Capsule 3 02/07/2023 03/02/2024 Discontinued (Reorder (E-cancel not sent)) finasteride (PROSCAR) 5 mg tabletIndications: BPH without urinary obstruction Take 1 Tablet (5 mg) by mouth every morning. 90 Tablet 3 02/07/2023 03/02/2024 Discontinued (Reorder (E-cancel not sent)) ferrous sulfate, 65 mg elemental, 324 mg (65 mg iron) Delayed-Release tabletIndications: iron deficiency anemia Take 1 Tablet (324 mg) by mouth once daily. 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 90 Tablet 3 04/22/2023 03/02/2024 Discontinued (Reorder (E-cancel not sent)) atorvastatin (LIPITOR) 40 mg tabletIndications: Cerebrovascular accident (CVA), unspecified mechanism (HC) Take 1 Tablet (40 mg) by mouth at bedtime. 90 Tablet 3 04/22/2023 03/02/2024 Discontinued (Reorder (E-cancel not sent)) cyanocobalamin (VITAMIN B12) 1,000 mcg tabletIndications: prevention of vitamin B12 deficiency Take 1 Tablet (1,000 mcg) by mouth once daily. 90 Tablet 3 04/22/2023 03/02/2024 Discontinued (Reorder (E-cancel not sent)) sertraline (ZOLOFT) 100 mg tabletIndications: Current severe episode of major depressive disorder with psychotic features without prior episode (HC) Take 1.5 Tablets (150 mg) by mouth every morning. 135 Tablet 3 06/28/2023 03/02/2024 Discontinued (Reorder (E-cancel not sent)) azithromycin (ZITHROMAX) 250 mg tabletIndications: Acute non-recurrent maxillary sinusitis Take 500 mg (2 tabs) by mouth on day 1, then 250 mg (1 tab) daily for days 2-5. 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 03/13/2023 Anxiety 03/13/2023 CARROLL (obstructive sleep apnea) 02/18/2023 Chronic GERD 02/09/2023 BPH without urinary obstruction 02/09/2023 Iron deficiency anemia 02/09/2023 B12 deficiency 02/09/2023 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 Ventral hernia, unspecified, without mention of obstruction or gangrene 05/07/2011 Encounters Date Type Department Care Team Description 03/25/2024 Orders Only [facility] [address] [place] [address] Jennifer Carter PA <No scans attached> 03/22/2024 2:30 PM CDT Orders Only [facility] [address] [facility] [place] [place] [id number] Lab, [facility] 03/22/2024 Travel 03/19/2024 Travel 03/02/2024 1:50 PM CDT Office Visit [facility] [address] [place] [address] Jennifer Carter PA Medicare ANNUAL (subsequent) Visit (88 year old male) 03/02/2024 Travel 02/14/2024 Procedure Only [facility] [address] [place] [address] Device Check (Remote Medtronic Pacemaker E... 02/03/2024 9:50 AM CDT Preop Visit [facility] [address] [place] [address] Jennifer Carter PA Preoperative Exam (Endoscopy-[facility]-02/10/24-) 02/03/2024 Travel 01/31/2024 Travel 01/31/2024 Refill [facility] [address] [place] [address] Jennifer Carter PA Refill Request (Omeprazole 40mg ) from Last 3 Months Immunizations Name Administration Dates Next Due COVID-19 Vaccine Spikevax (M oderna 50mcg/0.5mL) 12YO+ 8054-6680 Formula PF 10/31/2023,05/24/2023 COVID-19 vaccine (KakaMobi-Bio NTech 30mcg/0.3mL) 12YO+ BIVALENT PF, MDV 02/07/2023 Influenza Virus, Unspecified 05/03/2009 Influenza, High-dose Inactivated 019,05/05/2018,05/31/2016,05/24,06/10/2014 Influenza, High-dose Quadriv alent Inactivated 05/05/2021 Influenza, IIV3 (Age 6-35 mos) 05/15/2012,2010,05/31/2010 Influenza, IIV3 (Age >=3 years) 06/14/20 13,05/15/2012,05/01/2011,06/16,06/04/2006 Influenza, Inactivated AIIV4 (Age 65+ Years) Preserv Free 05/24/2023,05/16/2022 Pneumococcal Poly,23-Valent (Pneumovax) 06/30/2012,05/09/2011 Pneumococcal conj 13-Valent (Prevnar 13) 11/15/2014 RSV, Recombinant ADJ Reconst ituted (Arexvy 120MCG/0.5mL) 10/11/2023 Td, Preservative Free (age >= 7 Years) Tdap 05/01/2011 Zoster (Shingrix-RZV, recombinant) 08/27/2019,,05/21/2018 Zoster (Zostavax-ZVL, live) 08/01/2012 Family History Relation Name Status Comments Father Mother Social History Tobacco Use Types Packs/Day Years Used Date Smoking Tobacco: Former Cigarettes Smokeless Tobacco: Never Tobacco Cessation:Counseling Given: Yes Alcohol Use Standard Drinks/Week Comments Yes 0 (1 standard drink = 0.6 oz pur e alcohol) 1 glass of wine per day PHQ-2 Answer Date Recorded PHQ-2 TOTAL SCORE 0 03/02/2024 Social Connections Answer Date Recorded Frequency of [...] Sign Reading Time Taken Comments Blood Pressure 119/74 03/02/2024 2:03 PM CDT Pulse 64 03/02/2024 2:03 PM CDT Temperature 36.6 ??C (97.8 ??F) 06/05/2023 6:23 AM CD T Respiratory Rate 16 08/02/2023 10:24 AM OPTICAL INSTRUMENT SPECIALIST Oxygen Saturation 94% 03/02/2024 2:03 PM CDT Inhaled Oxygen Concentration - - Weight 80.6 kg (177 lb 9.6 oz) 03/02/2024 2:03 P M CDT Height 179.3 cm (5' 10.6) 03/02/2024 2:03 PM CD T Body Mass Index 25.05 03/02/2024 2:03 PM CDT Plan of Treatment Upcoming Encounters Date Type Department Care Team (Late st Contact Info) Description 05/29/2024 Procedure Only [facility] [address] [place] [address] Health Maintenance Due Date Last Done Comments Influenza for age 65+ 04/05/2024 05/24/2023 , 05/16/2022, 05/05/2021, Additional history exists BMI (ht and wt on same day) for age 18+ 03/02/2025 03/02/2024, 02/03/2024, 08/02/2023, Additional history exists Depression screening for age 12+ 03/02/2025 03/02/2024, 03/16/2023, 03/15/2023, Additional history exists Medicare Wellness for age 65+ 03/03/2025 03/02/2024, 02/07/2023 Tetanus booster 12/09/2033 12/10/2023, 05/01/2011 Tdap Completed 05/01/2011 Pneumococcal series for age 65+ Completed 11/15/2014, 06/30/2012, 05/09/2011 Zoster (shingles) series for age 50+ Completed 08/27/2019, 07/24/2018, 05/21/2018, Additional history exists COVID-19 vaccine series Completed 10/31/19, 05/24/2023, 02/07/2023, Additional history exists Medical Devices Implanted Type Area Ironworker Machine Operator Device Identifier Shelf Expiration Date Model / Serial / Lot Mesh Ventralex St Lg Circ 8.0cm - [id number] Implanted:Qty: 1 on 07/14/2012 at [facility] N/A: Abdomen DAVOL 04/05/2014 [id number] / / [id number] Procedures Procedure Name Priority Date/Time Associated Diagnosis Comments CBC WITH AUTO DIFFERENTIAL Routine 03/22/2024 2:35 PM CDT Thrombocytopenia (HC) CBC WITH AUTO DIFFERENTIAL Routine 03/22/2024 2:35 PM CDT Thrombocytopenia (HC) CBC WITH AUTO DIFFERENTIAL Routine 03/02/2024 2:53 PM CDT Iron deficiency anemia, unspecified iron deficiency anemia type HEMOGLOBIN A1C SCREENING Routine 03/02/2024 2:53 PM CDT Hyperglycemia LIPID PANEL W REFLEX MEASURED LDL Routine 03/02/2024 2:53 PM CDT Cerebrovascular accident (CVA), unspecified mechanism (HC) COMP METABOLIC PANEL Routine 03/02/2024 2:53 PM CDT Cerebrovascular accident (CVA), unspecified mechanism (HC) FERRITIN Routine 03/02/2024 2:53 PM CDT Iron deficiency anemia, unspecified iron deficiency anemia type IRON PLUS IRON BINDING CAP Routine 03/02/2024 2:53 PM CDT Iron deficiency anemia, unspecified iron deficiency anemia type VITAMIN B12 Routine 03/02/2024 2:53 PM CDT B12 deficiency CBC WITH AUTO DIFFERENTIAL Routine 03/02/2024 2:53 PM CDT Iron deficiency anemia, unspecified iron deficiency anemia type from Last 3 Months Results * (ABNORMAL) CBC WITH AUTO DIFFERENTIAL (03/22/2024 2:35 PM CDT) Only the most recent of2 resultswithin the time period is included. WHITE BLOOD COUNT 5.3 4.5 - 11.0 thou/cu mm 03/22/2024 2:57 PM [facility] RED BLOOD COUNT 4.56 4.30 - 5.90 mil/cu mm 03/22/2024 2:57 PM [facility] HEMOGLOBIN 15.3 13.5 - 17.5 g/dL 03/22/2024 2:57 PM [facility] HEMATOCRIT 45.2 37.0 - 53.0 % 03/22/2024 2:57 PM [facility] MCV 99 80 - 100 fL 03/22/2024 2:57 PM [facility] MCH 33.6 26.0 - 34.0 pg 03/22/2024 2:57 PM [facility] MCHC 33.8 32.0 - 36.0 g/dL 03/22/2024 2:57 PM [facility] RDW 14.4 11.5 - 15.5 % 03/22/2024 2:57 PM [facility] PLATELET COUNT 117(L) 140 - 440 thou/cu mm 03/22/2024 2:57 PM [facility] MPV 11.4(H) 6.5 - 11.0 fL 03/22/2024 2:57 PM [facility] % NEUT 64.1 % 03/22/2024 2:57 PM [facility] % LYMPH 18.8 % 03/22/2024 2:57 PM [facility] % MONO 13.3 % 03/22/2024 2:57 PM [facility] % EOS 3.4 % 03/22/2024 2:57 PM [facility] % BASO 0.4 % 03/22/2024 2:57 PM [facility] ABSOLUTE NEUTROPHILS 3.4 1.7 - 7.0 thou/cu mm 03/22/2024 2:57 PM [facility] ABSOLUTE LYMPHOCYTES 1.0 0.9 - 2.9 thou/cu mm 03/22/2024 2:57 PM [facility] ABSOLUTE MONOCYTES 0.7 <0.9 thou/cu mm 03/22/2024 2:57 PM [facility] ABSOLUTE EOSINOPHILS 0.2 <0.5 thou/cu mm 03/22/2024 2:57 PM [facility] ABSOLUTE BASOPHILS 0.0 <0.3 thou/cu mm 03/22/2024 2:57 PM [facility] Blood BLOOD SPECIMEN / Unknown Venipuncture / Unknown 03/22/2024 2:35 PM CDT 03/22/2024 2:35 PM T [facility] - 03/22/2024 2:57 PM CDT This procedure was originally ordered at [facility]. Jennifer ANDUJAR HEMATOLOGY Performing Organization Address [facility]/ZIP Co de Phone Number [facility] [address] [phone] * HEMOGLOBIN A1C SCREENING (03/02/2024 2:53 PM CDT) Pathologist [facility] [place] HEMOGLOBIN A1C SCREENING 5.8 <=6.4 % 03/03/2024 6:48 AM CDT [facility] invino [facility] Blood BLOOD SPECIMEN / Unknown Venipuncture / Unknown 03/02/2024 2:53 PM CDT 03/02/2024 2:54 PM CDT Narrative [facility] - 03/03/2024 6:48 AM CDT ? (<5.7%) ?Normal ? (5.7% to 6.4%) ? Indicates prediabetes ? (>=6.5%) ? Confirms diabetes Falsely low levels may be seen with: Recent Transfusion, Recent Significant Blood Loss, Hemolytic Diseases, or Falsely elevated levels may be seen with: Untreated Anemias, Splenectomy Jennifer ANDUJAR CHEMISTRY Performing Organization Address [facility] Co de Phone Number [facility] [address] [place] [address], * LIPID PANEL W REFLEX MEASURED LDL (03/02/2024 2:53 PM CDT) CHOLESTEROL,TOTAL 136 100 - 199 mg/dL 03/03/2024 9:11 AM CDT [facility] invino [facility] Comment: Cholesterol, Total Reference Ranges Desirable <200 mg/dL Borderline 200-239 mg/dL High >=240 mg/dL TRIGLYCERIDES 67 <150 mg/dL 03/03/2024 9:11 AM CDT [facility] HDL CHOLESTEROL 66 >40 mg/dL 9:11 AM CDT [facility] NON-HDL CHOLESTEROL 70 <145 mg/dl 03/03/2024 9:11 AM CDT [facility] CHOL/HDL RATIO 2.06 <4.50 03/03/2024 9:11 AM CDT [facility] LDL CHOLESTEROL 57 <=130 mg/dL 03/03/2024 9:11 AM CDT [facility] VLDL CHOLESTEROL 13 <=30 mg/dL 03/03/2024 9:11 AM CDT [facility] PROVIDER ORDERED STATUS RANDOM 03/03/2024 9:11 AM CDT [facility] Blood BLOOD SPECIMEN / Unknown Venipuncture / Unknown 03/02/2024 2:53 PM CDT 03/02/2024 2:54 PM CDT Jennifer ANDUJAR CHEMISTRY Performing Organization Address [facility] Co de Phone Number [facility] [address] [place] [id number], [place] * (ABNORMAL) IRON PLUS IRON BINDING CAP (03/02/2024 2:53 PM CDT) IRON 183(H) 61 - 157 ug/dL 03/03/2024 11:23 AM CDT [facility] UIBC (UNSATURATED) 118 112 - 347 ug/dL 03/03/2024 11:23 AM CDT [facility] IRON BINDING CAPACITY 301 250 - 400 ug/dL 03/03/2024 11:23 AM CDT [facility] IRON,% SATURATION 61(H) 14 - 50 % 03/03/2024 11:23 AM CDT [facility] Blood BLOOD SPECIMEN / Unknown Venipuncture / Unknown 03/02/2024 2:53 PM CDT 03/02/2024 2:54 PM CDT Jennifer ANDUJAR CHEMISTRY Performing Organization Address [facility]/ZIP Co de Phone Number [facility] [address] [place] [id number], [place] * FERRITIN (03/02/2024 2:53 PM CDT) FERRITIN 113.0 30.0 - 400.0 ng/mL 03/03/2024 11:23 AM CDT [facility] Blood BLOOD SPECIMEN / Unknown Venipuncture / Unknown 03/02/2024 2:53 PM CDT 03/02/2024 2:54 PM CDT Jennifer ANDUJAR CHEMISTRY Performing Organization Address [facility] de Phone Number [facility] [address] [place] [address], [place] * (ABNORMAL) VITAMIN B12 (03/02/2024 2:53 PM CDT) Pathologist [facility] [place] VITAMIN B12 1,722(H) 232 - 1,245 pg/mL 03/03/2024 11:32 AM CDT [facility] Blood BLOOD SPECIMEN / Unknown Venipuncture / Unknown 03/02/2024 2:53 PM CDT 03/02/2024 2:54 PM CDT Narrative [facility] - 03/03/2024 11:32 AM CDT Biotin supplements may cause clinically significant interference for this test assay. ??If interference is suspected, it is strongly recommended that biotin is discontinued for at least one week prior to retesting. Jennifer ANDUJAR CHEMISTRY Performing Organization Address [facility] de Phone Number [facility] [address] [place] [address], * (ABNORMAL) COMP METABOLIC PANEL (03/02/2024 2:53 PM CDT) SODIUM 144 136 - 145 mmol/L 03/03/2024 9:11 AM CDT [facility] POTASSIUM 4.8 3.5 - 5.1 mmol/L 03/03/2024 9:11 AM CDT [facility] CHLORIDE 108(H) 98 - 107 mmol/L 03/03/2024 9:11 AM CDT [facility] CO2,TOTAL 27 22 - 29 mmol/L 03/03/2024 9:11 AM [facility] ANION GAP 9 5 - 18 03/03/2024 9:11 AM [facility] GLUCOSE 84 70 - 99 mg/dL 03/03/2024 9:11 AM [facility] CALCIUM 9.4 8.8 - 10.2 mg/dL 03/03/2024 9:11 AM [facility] BUN 26(H) 8 - 23 mg/dL 03/03/2024 9:11 AM [facility] CREATININE 0.93 0.70 - 1.20 mg/dL 03/03/2024 9:11 AM [facility] BUN/CREAT RATIO 28(H) 10 - 20 9:11 AM [facility] eGFR 80(L) >90 mL/min/1.7 3m2 03/03/2024 9:11 AM [facility] Comment:As of 2021, eG FR is calculated by the CKD-EPI creatinine equation without race adjustment. ??eGFR can be influenced by muscle mass, exercise, and diet. ??The reported eGFR is an estimation only and is only applicable if the renal function is stable. ALBUMIN 4.0 4.0 - 4.9 g/dL 03/03/2024 9:11 AM [facility] PROTEIN,TOTAL 6.6 6.0 - 8.0 g/dL 03/03/2024 9:11 AM [facility] BILIRUBIN,TOTAL 0.7 0.0 - 1.2 mg/dL 03/03/2024 9:11 AM [facility] ALK PHOSPHATASE 125 40 - 129 IU/L 03/03/2024 9:11 AM [facility] ALT (SGPT) 37 10 - 50 IU/L 03/03/2024 9:11 AM [facility] AST (SGOT) 46 10 - 50 IU/L 03/03/2024 9:11 AM CDT [facility] Blood BLOOD SPECIMEN / Unknown Venipuncture / Unknown 03/02/2024 2:53 PM CDT 03/02/2024 2:54 PM CDT Jennifer ANDUJAR CHEMISTRY [facility] [address] [place] [id number], from Last 3 Months Advance Directives * Full Code (Latest Code Status on File) Date Activated Date Inactivated Comments 06/05/2023 9:59 AM 06/05/2023 9:25 PM Question Answer Comments Code Status Discussion: Reviewed Preferences * DNR Date Activated Date Inactivated Comments 03/23/2023 2:19 AM 03/27/2023 4:54 PM Question Answer Comments Code Status Discussion: Reviewed Preferences * DNR Date Activated Date Inactivated Comments 03/17/2023 7:19 PM 03/22/2023 6:51 PM Question Answer Comments Code Status Discussion: Reviewed Preferences * Full Code Date Activated Date Inactivated Comments 03/17/2023 6:59 PM 03/17/2023 7:19 PM Question Answer Comments Code Status Discussion: Reviewed Preferences * Full Code Date Activated Date Inactivated Comments 03/12/2023 3:35 PM 03/17/2023 6:45 PM Question Answer Comments Code Status Discussion: Reviewed Preferences Care Teams Hard Rock Miner Relationship Specialty Start Date End Date Jennifer Carter PA [address] [place] [address] PCP - General Physician Bed Control Specialist 02/09/23
--- OUTSIDE RECORDS SUMMARY | 2024-03-28 18:01 | XMS_ITS | Clinical Summary ---
Author Organization [facility] Address [address] [place] [address] Care Team Providers Care Director Of Education And Training Name Role Phone Unavailable Primary Care Provider Unavailabl e Source Comments Patient records contain information from all sites at [facility]. For routine questions regarding patient records, call [phone] during business hours, M-F 8:00 AM - 5:00 PM Central Time. Record requests for emergency care only can be directed to [phone] at any time.[facility] Social History Tobacco Use Types Packs/Day Years Used Date Smoking Tobacco: Never Nutrition Answer Date Recorded Nutrition: EVOO Fat Source 13 01/11 Nutrition: Servings of Fruits/Vegetables per Day Not on file 01/11/2019 Dental Answer Date Recorded Dental: Regular Dentist 13 01/12/20 19 Sex and Gender Information Value Date Recorded Sex Assigned at Not on file Gender Identity Male 09/06/2020 10:37 AM PROGRAM DIRECTOR CABLE TELEVISION Sexual Orientation Straight 09/06/2020 10 :37 AM PROGRAM DIRECTOR CABLE TELEVISION Last Filed Vital Signs Vital Sign Reading [...] Td or Tdap) 05/01/2021 05/01/2011 COVID-19 Vaccine ( - 2022-2 4 season) 2023 02/07/2023 Influenza Vaccine (#1) 2024 2, 05/05/2021, 06/02/2019, Additional history exists Pneumococcal vaccine (65+ years) Completed 11/15/2014, 06/30/2012, 05/09/2011 Zoster Vaccines Completed 08/27/2019, 07/06, 05/21/2018, Additional history exists
--- OUTSIDE RECORDS SUMMARY | 2024-03-28 18:01 | XMS_ITS | Data Portability ---
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 Bhakta's office per patient request. [email or web address] Not available 08/16/2022 13:23:50 Plan of Treatment Reminders Order Date Submit Date Provider Last Modified By Organization Details Last Modified Time Details Appointments None recorded. Lab urinalysis, dipstick 2021 022 [email or web address] [facility], [address], [place], [address], 2 11:43:57 culture, urine 2021 022 [facility], [address], [place], [address], 2 10:27:56 urinalysis, dipstick 2022 023 [email or web address] [facility], [address] [place], [address], 3 11:28:48 Referral None recorded. Procedures None recorded. Surgeries None recorded. Imaging None recorded. Medication Orders finasteride 5 mg tablet 2021 022 [facility] [place], [address], 12:24:56 Patient TargetsNo targets recorded. Patient InstructionsNo instructions recorded. Reason for Referral None Reported. Results Created Date Observation Date Name Description Value Unit Range Abnormal Flag LastModifiedBy Organization Detail LastModifiedTime 05/16/20 22 05/16/2022 URINE CULTU RE final report MICROB IOLOGY RESULT S Not Available [facility] [address], [place], [address], 05/20/2022 10:27:56 05/16/2005/16/2022 urina lysis , dipst ick pH-Status 7.0 Not Available [facility] [address], [place], [address], 05/16/2022 11:43:07 05/16/20 22 05/16/2022 urina lysis , dipst ick Blood-Status Trace Not Available [facility] [address], [place], [address], 05/16/2022 11:43:07 05/16/20 22 05/16/2022 urina lysis , dipst ick Leuko-Status Modera te Not Available [facility] [address], [place], [address], 05/16/2022 11:43:07 08/16/19 23 08/16/2022 urina lysis , dipst ick Color-Status Yellow Not Available [facility] [address], [place], [address], 08/16/2022 11:20:25 08/16/19 23 08/16/2022 urina lysis , dipst ick Clarity-Stat us Clear Not Available [facility] [address], [place], [address], 08/16/2022 11:20:25 08/16/19 23 08/16/2022 urina lysis , dipst ick Glucose-Stat us Negati ve Not Available [facility] [address], [place], [address], 08/16/2022 11:20:25 08/16/19 23 08/16/2022 urina lysis , dipst ick Bilirubin-St atus Negati ve Not Available [facility] [address], [place], [address], 08/16/2022 11:20:25 08/16/19 23 08/16/2022 urina lysis , dipst ick Ketones-Stat us Negati ve Not Available [facility] [address], [place], [address], 08/16/2022 11:20:25 08/16/19 23 08/16/2022 urina lysis , dipst ick Sp [place]-Stat us 1.015 Not Available [facility] [address], [place], [address], 08/16/2022 11:20:25 08/16/19 23 08/16/2022 urina lysis , dipst ick pH-Status 6.0 Not Available [facility] [address], [place], [address], 08/16/2022 11:20:25 08/16/19 23 08/16/2022 urina lysis , dipst ick Urobilinogen -Status 1.0 Not Available [facility] [address], [place], [address], 08/16/2022 11:20:25 08/16/19 23 08/16/2022 urina lysis , dipst ick Nitrates-Sta tus negati ve Not Available [facility] [address], [place], [address], 08/16/2022 11:20:25 08/16/19 23 08/16/2022 urina lysis , dipst ick Blood-Status Negati ve Not Available [facility] [address], [place], [address], 08/16/2022 11:20:25 08/16/19 23 08/16/2022 urina lysis , dipst ick Leuko-Status Negati ve Not Available [facility] [address], [place], [address], 08/16/2022 11:20:25 08/16/19 23 08/16/2022 urina lysis , dipst ick Specimen Type Voided Not Available [facility] [address], [place], [address], 08/16/2022 11:20:25 05/16/20 22 05/15/2022 bladd er [...] 3 Bladder Scan completed Brianda Lu PA-C [address], [place], [address], [facility] 08/16/2022 11:32:29 2 Bladder Scan completed Brianda Lu PA-C [address], [place], [address], [facility] 05/16/2022 12:16:05 procedure on tendon completed Radha angelo, [facility] 05/16/2022 11:42:16 pelvis repair completed Radha angelo, [facility] 05/16/2022 11:42:26 Hernia Repair completed Radha angelo, [facility] 05/16/2022 11:42:31 Cataract Surgery completed Kellensimona angelo [facility] 05/16/2022 11:42:37 Imaging Results Imaging Date Name [...] Updated DateTime 05/16/2022 182.88 cm 25.2 kg/m2 [address]306[address] [facility] 05/16/2022 11:40:48 Date Recorded Body height Body mass index (BMI) Body weight Provider Name and Address Organization Details Last Updated DateTime 08/16/2022 182.88 cm 25.2 kg/m2 [address]42.[address] [facility] 08/16/2022 11:19:56 Social History Question Answer Notes LastModified by Organizat ion Details LastModified Time Tobacco Smoking Status Former Smoker Radha angelo [facility] 05/16/2022 11:41:56 What Is Your [...] Nicotine? No Information not available 08/16/2022 Sex: Unknown Functional Status None recorded. Mental Status None recorded. Family History Nothing Reported. Medical History Condition Response Diabetes Y Sexually Transmitted Infection N Bleeding Disorder N Other N High Blood Pressure N Kidney Stones N Cancer N Lung Disease N Depression N High Cholesterol N GERD/Acid Reflux N Heart Disease N Immunizations Vaccine Type Date Status Provider Name and Address Organization Details Recorded Time zoster recombinant 08/27/2019 completed Janki T eska null, [facility] 07/25/2023 13:52:24 zoster recombinant 05/21/2018 completed Janki T eska null, [facility] 07/25/2023 13:52:24 zoster recombinant 07/24/2018 [facility] 13:52:24 Influenza, high-dose, quadrivalent, PF 05/05/2021 completed Janki Teska null, [facility] 07/25/2023 13:52:24 COVID-19, mRNA, LNP-S, PF, 30 mcg/0.3 mL dose 09/10/2020 completed Janki Teska null, [facility] 07/25/2023 13:52:24 COVID-19, mRNA, LNP-S, PF, 30 mcg/0.3 mL dose 10/01/2020 completed Janki Teska null, [facility] 07/25/2023 13:52:24 COVID-19, mRNA, LNP-S, PF, 30 mcg/0.3 mL dose 11/21/2021 completed Janki Clareka null, [facility] 07/25/2023 13:52:24 COVID-19, mRNA, LNP-S, PF, 30 mcg/0.3 mL dose 04/29/2021 completed Janki Teska null, [facility] 07/25/2023 13:52:24 COVID-19, mRNA, LNP-S, bivalent, PF, 30 mcg/0.3 mL dose 04/21/2022 completed Janki Clareka null, [facility] 07/25/2023 13:52:24 pneumococcal polysaccharide PPV23 05/09/2011 completed Janki Uri null, [facility] 07/25/2023 13:52:24 pneumococcal polysaccharide PPV23 06/30/2012 completed Janki Uri null, [facility] 07/25/2023 13:52:24 influenza, unspecified formulation 05/03/2009 completed Janki angelo, [facility] 07/25/2023 13:52:24 Tdap 05/01/2011 [facility] 13:52:24 Pneumococcal conjugate PCV 13 11/15/2014 completed Janki Grewal null, [facility] 07/25/2023 13:52:24 zoster live 08/01/2012 [facility] 13:52:24 Influenza, high-dose, trivalent, PF 05/05/2018 completed Janki Uri null, [facility] 07/25/2023 13:52:24 Influenza, high-dose, trivalent, PF 05/24/2015 completed Janki Clareka null, [facility] 07/25/2023 13:52:24 Influenza, high-dose, trivalent, PF 05/31/2016 completed Janki Uri null, [facility] 07/25/2023 13:52:24 Influenza, high-dose, trivalent, PF 06/02/2019 completed Janki Teska null, [facility] 07/25/2023 13:52:24 Influenza, high-dose, trivalent, PF 06/10/2014 completed Janki angelo, [facility] 07/25/2023 13:52:24 Influenza, split virus, trivalent, preservative 06/04/2006 completed Janki angelo, [facility] 07/25/2023 13:52:24 Influenza, split virus, trivalent, preservative 06/14/2013 completed Janki angelo, [facility] 07/25/2023 13:52:24 Influenza, split virus, trivalent, preservative 06/16/2008 completed Janki angelo, [facility] 07/25/2023 13:52:24 Influenza, split virus, trivalent, PF 05/01/2011 completed Janki angelo, [facility] 07/25/2023 13:52:24 Influenza, split virus, trivalent, PF 05/15/2012 completed Janki angelo, [facility] 07/25/2023 13:52:24 Influenza, split virus, trivalent, PF 05/31/2010 completed Janki angelo, [facility] 07/25/2023 13:52:24 Influenza, adjuvanted, quadrivalent, PF 05/16/2022 [facility] 13:52:33 Past Encounters Encounter ID Performer Location Encounter Start Date Encounter Closed Date Diagnosis/Indication Diagnosis SNOMED-CT Code [id number] Brianda Lu PA-C [facility] [address] [place] [address] 05/16/2022 11:26:46 05/24/2022 15:25:03 Recurrent urinary tract infection Lower urin jose tract symptoms due to benign prostatic hypertrophy 90786654425912 Prostate s pecific antigen above reference range [id number] Brianda Lu PA-C [facility] [address] [place] [address] 08/16/2022 11:01:37 08/20/2022 07:55:05 Recurrent urinary tract infection Lower urin jose tract symptoms due to benign prostatic hypertrophy 80905893564329 Prostate s pecific antigen above reference range [id number] Health Concerns Section Related Observation LastModified by Organization Detai ls LastModified Time None Recorded Concern Status LastModified by Organization Details LastModified Time None Recorded Advance Directives Directive None Recorded Payers Encounter Date Sequence Insurance Name Policy Number Policy Vigil Covered Member ID Vigil Member ID Guarantor Name 05/16/2022 1 [place] [id number] Ming Schafer [id number] Ming Schafer 05/16/2022 2 [place] [id number] Ming Schafer [id number] Ming Schafer 08/16/2022 1 [place] - MEDICARE COST [id number] Ming Schafer [id number] Ming Schafer Notes Date Note Type Note [...] Also states he saw a urologist at [place] many years ago for bladder crystals, but [...] FHx: no FHx of prostate cancer Brianda [place], PA-C [address], [place], [address], [facility] 05/23/2022 18:41:35 08/16/2022 text/html HPI Notes: [...] Also states he saw a urologist at [place] many years ago for bladder crystals, but [...] of prostate cancer Brianda Lu PA-C [address], [place], [address], [facility] 08/16/2022 13:24:05
--- OUTSIDE RECORDS SUMMARY | 2024-03-28 18:01 | XMS_ITS | Referral Summary ---
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 For routine questions regarding patient records, call [phone] during business hours, M-F 8:00 AM - 5:00 PM Central Time. 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
[2024-03-28 18:20] VITALS: RESP 18; O2SAT 92
--- NOTE | 2024-03-28 18:35 | CRLHL7_ITS ---
For Patients: As a result of the Century Cures Act, medical imaging exams and procedure reports are released immediately into your electronic medical record. You may view this report before your referring provider. If you have questions, please contact your health care provider. INDICATION: Preoperative evaluation. TECHNIQUE: Chest 1 views. COMPARISON: None. FINDINGS: Cardiovasculature and mediastinum: Normal cardiomediastinal contours. Left chest wall pacemaker. Lungs and pleural spaces: Mild left basilar streaky opacities. The lungs are otherwise clear. No sign of pleural effusion. No pneumothorax. Bones and soft tissues: No significant findings. IMPRESSION: Left basilar streaky opacities, which may reflect atelectasis. The lungs are otherwise clear. Dictated by Jules Price MD @ 03/28/2024 7:09:47 PM (Electronically Signed)
[2024-03-28 18:46] LABS: INR 1.35 (0.91-1.10); Prothrombin Time 17.6 Seconds
[2024-03-28 18:48] LABS: Partial Thromboplastin Time* 45 Seconds (23-33)
--- NOTE | 2024-03-28 19:43 | PC.NURSE ---
Nursing Care Hours: [id number] Pt arrived to floor in stable condition, alert and oriented. VSS. Pain in left shoulder 11/12, hip 10/12. Provided dinner, will be NPO at midnight. Updated on surgery tomorrow.
--- NOTE | 2024-03-28 19:46 | PM.IMHP1 ---
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 patient states that he has problems with balance, he uses a cane and today he was in his backyard on the grass when he felt that his left leg gave out and he fell on his left side, he did not lose consciousness and he did not hit his head. Patient lives with his . At the ED patient was hemodynamically stable, alert awake oriented. Labs were unremarkable. CT head unremarkable, plain x-ray of the shoulder showed an old mid left clavicle fracture and a new mildly displaced fracture of the distal clavicle , and left hip CT that showed nondisplaced left subcapital femoral neck fracture. N.B patient follows up with a head of science for his pacemaker in [facility]. From [facility] chart: last time he followed up there was on 02/14/2024 and that there were no changes at that time (Report copy attached to this document). Patient denies any history of pulmonary or cardiac issues other than the history of AVB that was treated with a pacemaker. He never had any need for heart catheterization in the past. He denies chest pain or shortness of breath or palpitations. Review of Systems Status of ROS: Reports: 6 or more systems reviewed and unremarkable except as noted in History and below [facility] Medical History (Updated 03/28/24 @ 23:23 by Luz Maria Cuenca MD) 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 (ICD-10) AVB (atrioventricular block) ?I44.30 - Unspecified atrioventricular block (ICD-10) Thrombocytopathia ?D69.1 - Qualitative platelet defects (ICD-10) CARROLL (obstructive sleep apnea) ?G47.33 - Obstructive sleep apnea (adult) (pediatric) (ICD-10) Atypical nevus ?D22.9 - Melanocytic nevi, unspecified (ICD-10) Ascending aorta dilation ?I77.810 - Thoracic aortic ectasia (ICD-10) Chronic GI bleeding ?K92.2 - Gastrointestinal hemorrhage, unspecified (ICD-10) Iron deficiency anemia (03/24/07) ?D50.9 - Iron deficiency anemia, unspecified (ICD-10) Anxiety ?F41.9 - Anxiety disorder, unspecified (ICD-10) Clavus ?L84 - Corns and callosities (ICD-10) Hyperlipidemia ?E78.5 - Hyperlipidemia, unspecified (ICD-10) Fracture of metacarpal bone ?S62.309A - Unspecified fracture of unspecified metacarpal bone, initial encounter for closed fracture (ICD-10) Closed dislocation of fifth metacarpal bone of right hand ?S63.266A - Dislocation of metacarpophalangeal joint of right little finger, initial encounter (ICD-10) Health care directive on file ?Z78.9 - Other specified health status (ICD-10) Hoarse voice quality ?R49.0 - Dysphonia (ICD-10) BPH (benign prostatic hyperplasia) ?N40.0 - Benign prostatic hyperplasia without lower urinary tract symptoms (ICD-10) Tremor ?R25.1 - Tremor, unspecified (ICD-10) Surgical History H/O hernia repair ?Z98.890 - Other specified postprocedural states (ICD-10) ?Z87.19 - Personal history of other diseases of the digestive system (ICD-10) S/P small bowel resection ?Z90.49 - Acquired absence of other specified parts of digestive tract (ICD-10) Social History Narrative: 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 Lives with in [place] (she has been undergoing health issues, has MCI). Son Taurus ([place] ) and daughter Nury ([facility]) would share medical decision making capabilities if needed. He requests DNR/DNI status. Smoked socially in college, previous social ETOH use, none now. Health care directive on file- Health care directive dated 04/13/20 sent for scanning on 04/22/20. What is your current living situation?: I presently have a place to live Problems where you live: no known problems Problems where you live details: n/a In the past 12 months, utilities in danger of being shut off: no In past 12 months, lack of transportation kept you from medical appts, meetings, work, or getting things needed for daily living: no In the past 12 mos, have been you worried that your food would run out before you had money to buy more?: never true In the past 12 mos, the food you bought just didn't last and you didn't have money to buy more?: never true Highest level of school completed/degree received: Doctoral degree Smoking Status: Never smoker Do you use any of these nicotine containing products: None Second hand tobacco smoke exposure: No How often do you have a drink containing alcohol: monthly or less How often do you have six or more drinks on one occasion: Never AUDIT-C Alcohol total score: 1 Non-prescribed substance use: denies use Caffeine: Yes (1 cup/day) How often does anyone, including family, friends and others, physically hurt you: never How often does anyone, including family, friends and others, insult or talk down to you: never How often does anyone, including family, friends and others, threaten you with harm: never How often does anyone, including family, friends and others, scream or curse at you: never Gender Identity: male service: No Meds Home Medications and Allergies Home Medications ?Medication ?Instructions ?Recorded ?Confirmed ?Type cyanocobalamin (vitamin B-12) 1,000 mcg PO DAILY 04/10/22 12/10/23 History 1,000 mcg capsule finasteride 5 mg tablet 5 mg PO DAILY 08/27/22 12/10/23 History omeprazole 40 mg capsule,delayed 40 mg PO DAILY 03/06/23 12/10/23 History release sertraline 25 mg tablet 25 mg PO DAILY 03/06/23 12/10/23 History tamsulosin 0.4 mg capsule 0.4 mg PO DAILY bph 03/06/23 12/10/23 History aspirin 81 mg tablet,delayed 81 mg PO QDAY 09/19/23 12/10/23 History release propranolol 40 mg tablet 40 mg PO BID 09/19/23 12/10/23 History diphenhydramine 25 2 tab PO QHS PRN 12/10/23 12/10/23 History mg-acetaminophen 500 mg tablet (Acetaminophen PM) loracin .Route 12/10/23 History Allergies Allergy/AdvReac Type Severity Reaction Status Date / Time tree nut Allergy Verified 12/10/23 15:31 Exam Narrative: Exam Narrative: Physical exam GENERAL: Well-developed, no acute distress. HEAD AND NECK: Mild ecchymoses on the upper right eyelid. CARDIOVASCULAR: RRR. Normal S1, S2. No murmurs. RESPIRATORY: Clear to auscultation B/L. Good air entry B/L. No wheezes or rhonchi. GASTROINTESTINAL: Not distended, not tender to palpation. NEUROLOGY: Alert, awake, oriented X 3. Normal speech. Did not ask the patient to move his upper or lower extremities because of the fractures, and orthopedic recommendations. MUSCULOSKELETAL: Tenderness on the left clavicle, no wounds. No tenderness on palpation at left hip area & no open wounds. PSYCH: Normal mood, normal affect. Const: Vital Signs, click to edit/add: Vital Signs - 24 hr 03/28/24 16:30 03/28/24 17:47 03/28/24 18:20 Temperature 96.5 F L Pulse Rate [Pulse Oximeter] 76 61 Respiratory Rate 18 18 18 Blood Pressure [Ri ght Upper Arm] 121/107 H 137/81 Pulse Oximetry 91 90 92 Oxygen Delivery Me thod Room Air Room Air Room Air Hospitalist - H&P: Result Labs Labs: Short CBC 03/28/24 Range/Units 17:20 WBC 7.79 (4.50-11.00) K/uL Hgb 14.7 (13.5-17.5) gm/dL Hct 45.2 (37.0-53.0) % Plt Count 93 L (140-440) K/uL BMP 03/28/24 17:20 Sodium 137 Potassium 4.3 Chloride 105 Carbon Dioxide 26 BUN 30 Creatinine 0.8 Glucose 104 Calcium 9.3 ECG Interpretation: I reviewed the EKG myself and it showed both atrial and ventricular dual paced rhythm. Prolonged so his QTC interval. Imaging plain x ray: Radiologist's impression: FALL. SHOULDER PAIN. HX OF CLAVICLE FRACTURE Technique: Left shoulder 3 views. Comparison: None. Findings: Old mid left clavicle fracture is present. There is also a new mildly displaced fracture of the distal clavicle. Degenerative changes. Old left rib fractures. Impression: Acute fracture of the distal left clavicle. CT scan - head: Radiologist's impression: Noncontrast CT head. FINDINGS: Moderate generalized volume loss. Focal encephalomalacia gliosis of old infarct of the parasagittal left parietal lobe. Ex vacuo dilatation of the posterior horn of left lateral ventricle. Patchy low-attenuation change within the white matter consistent with chronic deep white matter small vessel ischemic changes. No acute intracranial hemorrhage, acute infarct, mass effect, or fracture. No midline shift. No abnormal ventricular dilatation. Normal calvarium and skull base. Visualized paranasal sinuses mastoid air cells are clear. Normal orbits bilaterally. IMPRESSION: 1. No acute intracranial abnormality. 2. Moderate generalized cerebral volume loss. Encephalomalacia and gliosis of old infarct of the parasagittal left parietal lobe. Chronic deep white matter small vessel ischemic changes. CT scan - pelvis: Radiologist's impression: FINDINGS: The study is performed without intravenous contrast. This limits the sensitivity of the exam for the detection bowel pathology, focal lesions of the pelvic viscera and vascular pathology including significant vascular stenosis, occlusion and dissection. SKELETON AND BODY WALL Nondisplaced left subcapital femoral neck fracture. Plate and screw fixation of the symphysis pubis. Chronic fracture deformities of the right inferior pubic ramus and right sacral ala consistent with an old anteroposterior compression injury. PELVIC CAVITY Sigmoid diverticulosis without associated inflammatory changes. No bladder lesion is identified. No significant ascites or free fluid. No incidental adenopathy. IMPRESSION: Nondisplaced left subcapital femoral neck fracture. Assessment and Plan Assessment and plan (1) Closed fracture of neck of left femur: Problem comment: -Left hip CT that showed nondisplaced left subcapital femoral neck fracture. -Consulted Ortho -NPO after midnight Status: Acute (2) Closed fracture of left clavicle: Problem comment: -Acute fracture of the distal left clavicle. -Pt w/ a sling -Consulted Ortho -NPO after midnight Status: Acute (3) Fall: Problem comment: -Hx of imbalance -Pt statesthat his stroke in 2022 only affected his vision (peripheral vision , mainly RT), didnt cause weakness. -Ordered PT/OT Status: Acute (4) Pacemaker: Problem comment: -Check report below from his cards clinic last month. -Stable Status: Chronic Assessment and Plan: Encounter Date:?02/14/2024 SignedMEDTRONIC DUAL CHAMBER PACEMAKER EVALUATION REPORTPatient does have an MRI conditional device system.[birth year]88 y.o.?CONCLUSION: Where/Type: Remote, Routine Presenting Rhythm: Atrial paced - Ventricular paced 60 bpm with PACs Underlying Rhythm: N/A, remote check Last assessment was on 11/04/2023 and was Sinus Bradycardia 40s, with 2:1 block with AAI pacing at 80 bpm H/O Pacemaker Dependency: No Since 11/04/2023: Pacin.4% Atrial paced 96.9% RV paced High Atrial Rate Episodes: <0.1% burden, EGMs consistent with Atrial Fib/Flutter, Ventricular rates controlled, longest episode ~44 seconds (p. 18 log, p. 20+ EGMs) Total time in AT/AF 62 seconds Anticoagulation: None (per medication list) High Ventricular Rate Episodes: None Battery and Lead Status: Stable lead measurements and battery status: 11.3 year(s) until BELKIS Reprogramming: N/A - remote check Routing: None Pertinent Advisories: No pertinent advisories See also attached Paceart Report & PDF(s) ?Follow up: Next Remote device check is 05/29/2024. MyChart letter sent. Next in clinic Device check is due November 2025. Next Cardiology office visit is due August [address] Aldana. ?Jazmin Arora RN ..................... 02/14/2024 7:48 AM (5) History of stroke: Problem comment: -Lt ACTUARIAL DIRECTOR ischemic stroke 2022. -On ASA and a statin Status: Chronic (6) CARROLL (obstructive sleep apnea): Problem comment: Uses CPAP at home Status: Chronic (7) Thrombocytopathia: Status: Chronic (8) Austin's esophagus: Problem comment: -On a PPI Status: Chronic (9) Anxiety: Problem comment: - recent stressors ('s illness, caregiver burden) - started on Zoloft February 2023, family aware of patient's anxiety and has him scheduled with a therapist, working on additional help at home - close PCP f/u as well Status: Acute Total Time Spent Total Time Spent: Time spent: Today I spent 75 minutes seeing the patient, discussing the patient with ER staff, reviewing Expanse and EPIC notes/diagnostics, discussing the care plan with our care time that includes PT/OT, pharmacy, RT and documenting my impressions and plan in the medical record.
[2024-03-28] MEDS: PROPRANOLOL 20 MG TABLET 40 MG PO (20:36)
[2024-03-28] MEDS: ATORVASTATIN 10 MG TABLET 40 MG PO (20:36)
[2024-03-28] MEDS: HEPARIN 5,000 UNIT/0.5 ML INJ 5000 UNIT SUBCUT (20:37)
[2024-03-28] MEDS: bisacodyL 5 MG TABLET DR PO (20:37)
[2024-03-28] MEDS: ACETAMINOPHEN 325 MG TABLET 975 MG PO (20:38)
[2024-03-28] MEDS: SODIUM CHLORIDE 0.9 % (FLUSH) 10 ML SYRINGE 5 ML IVF (20:38)
[2024-03-28 21:27] VITALS: BMI 25.6
[2024-03-28] MEDS: lidocaine HCL 2 % JELLY (TOP) STERILE 6 ML UR (22:31)
[2024-03-28 23:15] VITALS: BP 129/66; PULSE 61; RESP 20; TEMP 36.9; O2SAT 90
[2024-03-28 23:16] VITALS: PULSE 60
[2024-03-28] MEDS: LATANOPROST 0.005% OPHTH 1 DROP EYE-BOTH (23:42)
[2024-03-29] VITALS (21 sets, daily range): BP systolic 114–142; BP diastolic 55–71; PULSE 59–63; RESP 16–20; TEMP 36.4–37.5; O2SAT 88–96
[2024-03-29] MEDS: HYDROmorphone 0.5 mg/0.5 ml inj 0.4 MG IVP ×2 (01:42→07:37)
[2024-03-29] MEDS: SODIUM CHLORIDE 0.9 % (FLUSH) 10 ML SYRINGE 5 ML IVF ×2 (01:43→22:45)
[2024-03-29] MEDS: LACTATED RINGERS 1000 ML 1,000 ML 75 ML IV (04:15)
[2024-03-29 06:11] LABS: Basophils Absolute Auto 0.02 K/uL (0.00-0.30); Basophils Percent Auto 0.3 % (0.0-3.0); Eosinophils Absolute Auto 0.16 K/uL (0.00-0.50); Eosinophils Percent Auto 2.5 % (0.0-7.0); Hematocrit 41.7 % (37.0-53.0); Hemoglobin* 13.6 gm/dL (13.5-17.5); Immature Granulocytes Abs Auto 0.01 K/uL (0.00-0.30); Immature Granulocytes Pct Auto 0.2 %; Lymphocytes Percent Auto 7.7 % (20-44); Mean Corpuscular HGB Conc 33 gm/dL (32-36); Mean Corpuscular Hemoglobin 32 pg (26-34); Mean Corpuscular Volume 98 fL (80-100); Monocytes Percent Auto 11.7 % (0.0-11.0); Neutrophils Percent Auto 77.6 % (42.0-72.0); Platelet Count* 82 K/uL (140-440); RDW Coefficient of Variation % 14.1 % (11.5-15.5); Red Blood Count 4.26 m/uL (4.30-5.90)
[2024-03-29 06:17] LABS: Slide Review Reflex No
[2024-03-29] MEDS: PROPRANOLOL 20 MG TABLET 40 MG PO (06:24)
[2024-03-29 06:32] LABS: Albumin* 3.7 g/dL (3.3-5.0)
[2024-03-29 06:33] LABS: Chloride* 107 mmol/L (96-114); Potassium* 4.1 mmol/L (3.6-5.1); Sodium* 136 mmol/L (135-149)
[2024-03-29 06:35] LABS: Alanine Aminotransferase* 39 U/L (4-50); Alkaline Phosphatase* 95 U/L (40-150); Anion Gap 4 mEq/L (7-15); Aspartate Amino Transferase* 45 U/L (12-35); Bilirubin Total* 1.3 mg/dL (0.1-1.5); Blood Urea Nitrogen* 26 mg/dL (7-30); Carbon Dioxide* 25 mmol/L (20-32); Creatinine* 0.6 mg/dL (0.5-1.5); Est. Creatinine Clearance* 54.75; Estimated Glomerular Filt Rate 94 ml/min; Glucose* 113 mg/dL (60-115)
[2024-03-29 06:36] LABS: Calcium* 8.9 mg/dL (8.4-10.6); Magnesium* 2.1 mg/dL (1.5-2.6)
--- NOTE | 2024-03-29 06:38 | PC.NURSE ---
End of shift [id number] - Pt alert, oriented, cooperative. Pt on bedrest with sling present on L arm. Pt tolerating RA, regular diet/fluids and transition to NPO diet for surgery. Reported pain in L shoulder and L hip as 2-3/10 at rest and 5-6/10 with movement. Medication given per MAR, pt requested additional pain support so overnight MD was contacted and orders were received. Medication given per updated MAR with pt reporting improved comfort. Franklin catheter placed per MD order, noted to be patent and draining. Pt observed to sleep, appears to be resting comfortably at end of shift with call light within reach.
--- NOTE | 2024-03-29 07:28 | PM.IMPN1 ---
Progress Note: A&P Assessment and plan (1) Closed fracture of neck of left femur: Problem details: - Left hip CT that showed nondisplaced left subcapital femoral neck fracture. - Orthopedic surgery aware, pending surgical intervention 03/29 - NPO, last dose of ASA 03/28 - no h/o previous anesthesia or surgical complications with previous procedures, baseline EKG and CXR - chronic conditions optimized for urgent procedure Status: Acute (2) Closed fracture of left clavicle: Problem details: - Acute fracture of the distal left clavicle - in sling, Ortho has been consulted Status: Acute (3) Fall: Problem details: - Hx of imbalance - Pt states that his stroke in 2022 only affected his vision (peripheral vision, mainly RT), no weakness. Has completed outpatient vision therapy - Ordered PT/OT Status: Acute (4) Pacemaker: Problem details: - Check report below from his cards clinic last month. 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 Normal left ventricular systolic function. Calculated left ventricular ejection fraction (modified Conklin technique) is 58 %. No regional wall motion abnormalities. 2. Mild concentrically increased left ventricular wall thickness. BP 158/85 mmHg. 3. Normal right ventricular chamber size. Normal right ventricular systolic function. Estimated right ventricular systolic pressure is 28 mmHg. 4. Severe left atrial enlargement. 5. Aortic valve sclerosis without stenosis. Mild aortic valve regurgitation. 6. 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 Trivial mitral valve regurgitation. 7. Mildly indexed ascending aorta dimension (4 cm, 2 cm/m?). 8. Atrial septum was not well visualized. No evidence of inter-atrial shunt by color flow Doppler Status: Chronic (6) CARROLL (obstructive sleep apnea): Problem details: Uses CPAP at home Status: Chronic (7) Thrombocytopathia: Problem details: - anesthesia aware, no evidence of acute bleeding Status: Chronic (8) Austin's esophagus: Problem details: - on PPI, sees [facility] for monitoring EGDs Status: Chronic (9) Anxiety: Problem details: - recent stressors ('s recent illness, caregiver burden) - has been on Sertraline since February 2023 - close PCP f/u as well Status: Acute Plan - surgery today - hospitalist team will follow postoperatively - may need TCU pending postoperative course Subjective Date Seen: 04/08/24 Interval history: Ming was admitted last night after a mechanical fall; found to have a distal L clavicular fracture and a L subcapital femoral neck fracture. He is having surgery this morning with Dr. Marley of Orthopedic Surgery. Has had 3 falls in the past few months, attributed to decreased peripheral vision (CVA in 03/2023, vision disturbances primary deficit). On a daily ASA for CVA, platelets in the 80s this morning. Imaging and EKG from ED reviewed. No concerns for hospitalist team this morning. Exam Narrative: Exam Narrative: GEN: Alert and oriented, sitting up in bed and answering questions appropriately HEENT: Small hematoma above right eye, EOMIs bilaterally CV: RRR, soft systolic murmur without concerning features R: LCTA bilaterally without concerning wheezing Ext: Wearing sling LUE Skin: Bruising right eye as noted above Neuro: No focal deficits Psych: Appropriate, verbalizes understanding of risks regarding surgery Const: Vital Signs, click to edit/add: Vital Signs - 24 hr 03/28/24 16:30 03/28/24 17:47 03/28/24 18:20 Temperature 96.5 F L Pulse Rate Pulse Rate [Pulse Oximeter] 76 61 Respiratory Rate 18 18 18 Blood Pressure [Ri ght Arm] Blood Pressure [Ri ght Upper Arm] 121/107 H 137/81 Pulse Oximetry 91 90 92 Oxygen Delivery Me thod Room Air Room Air Room Air 03/28/24 23:15 03/28/24 23:16 03/29/24 04:36 Temperature 98.5 F 98.0 F Pulse Rate 60 Pulse Rate [Pulse Oximeter] 61 59 L Respiratory Rate 20 20 Blood Pressure [Ri ght Arm] 129/66 129/68 Blood Pressure [Ri ght Upper Arm] Pulse Oximetry 90 88 Oxygen Delivery Me thod Room Air Room Air Labs Labs: Laboratory Results - last 24 hr 03/28/24 03/28/24 03/29/24 17:20 18:29 05:49 WBC 7.79 6.50 RBC 4.61 4.26 L Hgb 14.7 13.6 Hct 45.2 41.7 MCV 98 98 MCH 32 32 MCHC 33 33 RDW Coeff of Casie 14.1 14.1 Plt Count 93 L 82 L Neut % (Auto) 80.0 H 77.6 H Lymph % (Auto) 9.1 L 7.7 L [place] % (Auto) 9.1 11.7 H Eos % (Auto) 1.0 2.5 Baso % (Auto) 0.3 0.3 Neut # (Auto) 6.20 5.00 Lymph # (Auto) 0.70 L 0.50 L [place] # (Auto) 0.70 0.80 Eos # (Auto) 0.08 0.16 Baso # (Auto) 0.02 0.02 Abs Immat Gran (auto) 0.04 0.01 Imm/Tot Granulo (auto) 0.5 0.2 INR 1.35 H APTT 45 H Sodium 137 136 Potassium 4.3 4.1 Chloride 105 107 Carbon Dioxide 26 25 Anion Gap 6 L 4 L BUN 30 26 Creatinine 0.8 0.6 Estimated Creat Clear 54.75 Estimated GFR 86 94 Glucose 104 113 Calcium 9.3 8.9 Phosphorus 3.0 Magnesium 2.1 Total Bilirubin 1.3 AST 45 H ALT 39 Alkaline Phosphatase 95 Total Protein 6.0 Albumin 3.7 Lab Acknowledgement Test Added Blood Type O Positive Antibody Screen NEGATIVE
--- NOTE | 2024-03-29 08:19 | PM.ORCN ---
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 He presented to [place] ED on 03/28/2024 in the afternoon after falling in his backyard on the grass. He does report balance issues, but does not report any loss of consciousness with this event. Reports no head injury. In the ED, imaging revealed no head trauma, but a left distal clavicle acute fracture was seen adjacent to the previous mid clavicle malunion. Additionally, a valgus impacted left femoral neck fracture was identified both on radiographs and CT scan. [facility] Medical History (Updated 03/29/24 @ 07:31 by Virginia Jimenez MD) 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 (ICD-10) AVB (atrioventricular block) ?I44.30 - Unspecified atrioventricular block (ICD-10) Thrombocytopathia ?D69.1 - Qualitative platelet defects (ICD-10) CARROLL (obstructive sleep apnea) ?G47.33 - Obstructive sleep apnea (adult) (pediatric) (ICD-10) Atypical nevus ?D22.9 - Melanocytic nevi, unspecified (ICD-10) Ascending aorta dilation ?I77.810 - Thoracic aortic ectasia (ICD-10) Chronic GI bleeding ?K92.2 - Gastrointestinal hemorrhage, unspecified (ICD-10) Iron deficiency anemia (03/24/07) ?D50.9 - Iron deficiency anemia, unspecified (ICD-10) Anxiety ?F41.9 - Anxiety disorder, unspecified (ICD-10) Clavus ?L84 - Corns and callosities (ICD-10) Hyperlipidemia ?E78.5 - Hyperlipidemia, unspecified (ICD-10) Fracture of metacarpal bone ?S62.309A - Unspecified fracture of unspecified metacarpal bone, initial encounter for closed fracture (ICD-10) Closed dislocation of fifth metacarpal bone of right hand ?S63.266A - Dislocation of metacarpophalangeal joint of right little finger, initial encounter (ICD-10) Health care directive on file ?Z78.9 - Other specified health status (ICD-10) Hoarse voice quality ?R49.0 - Dysphonia (ICD-10) BPH (benign prostatic hyperplasia) ?N40.0 - Benign prostatic hyperplasia without lower urinary tract symptoms (ICD-10) Tremor ?R25.1 - Tremor, unspecified (ICD-10) Surgical History H/O hernia repair ?Z98.890 - Other specified postprocedural states (ICD-10) ?Z87.19 - Personal history of other diseases of the digestive system (ICD-10) S/P small bowel resection ?Z90.49 - Acquired absence of other specified parts of digestive tract (ICD-10) Social History Narrative: 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 Lives with in [place] (she has been undergoing health issues, has MCI). Son Taurus ([facility]# [phone]) and daughter Nury ([facility]) would share medical decision making capabilities if needed. He requests DNR/DNI status. Smoked socially in college, previous social ETOH use, none now. Health care directive on file- Health care directive dated 04/13/20 sent for scanning on 04/22/20. What is your current living situation?: I presently have a place to live Problems where you live: no known problems Problems where you live details: n/a In the past 12 months, utilities in danger of being shut off: no In past 12 months, lack of transportation kept you from medical appts, meetings, work, or getting things needed for daily living: no In the past 12 mos, have been you worried that your food would run out before you had money to buy more?: never true In the past 12 mos, the food you bought just didn't last and you didn't have money to buy more?: never true Highest level of school completed/degree received: Doctoral degree Smoking Status: Never smoker Do you use any of these nicotine containing products: None Second hand tobacco smoke exposure: No How often do you have a drink containing alcohol: monthly or less How often do you have six or more drinks on one occasion: Never AUDIT-C Alcohol total score: 1 Non-prescribed substance use: denies use Caffeine: Yes (1 cup/day) How often does anyone, including family, friends and others, physically hurt you: never How often does anyone, including family, friends and others, insult or talk down to you: never How often does anyone, including family, friends and others, threaten you with harm: never How often does anyone, including family, friends and others, scream or curse at you: never Gender Identity: male service: No Meds Home Medications and Allergies Home Medications ?Medication ?Instructions ?Recorded ?Confirmed ?Type cyanocobalamin (vitamin B-12) 1,000 mcg PO DAILY 04/10/22 03/29/24 History 1,000 mcg capsule finasteride 5 mg tablet 5 mg PO DAILY 08/27/22 03/29/24 History omeprazole 40 mg capsule,delayed 40 mg PO DAILY 03/06/23 03/29/24 History release sertraline 25 mg tablet 25 mg PO DAILY 03/06/23 03/29/24 History tamsulosin 0.4 mg capsule 0.4 mg PO DAILY bph 03/06/23 03/29/24 History aspirin 81 mg tablet,delayed 81 mg PO QDAY 09/19/23 03/29/24 History release propranolol 40 mg tablet 40 mg PO BID 09/19/23 03/29/24 History diphenhydramine 25 2 tab PO QHS PRN 12/10/23 03/29/24 History mg-acetaminophen 500 mg tablet (Acetaminophen PM) loracin .Route 12/10/23 History Allergies Allergy/AdvReac Type Severity Reaction Status Date / Time tree nut Allergy Verified 12/10/23 15:31 Ortho Exam Narrative Exam Narrative: He is alert and oriented x3 today. He is lying supine in hospital bed. Cooperative. Regarding the left shoulder he notes tenderness to palpation of the left distal clavicle. Pain with shoulder range of motion especially above the level of the chest. 2+ radial pulse. Neurologic intact in the radial, ulnar, and median nerve distribution to sensory light touch and motor function. Sling is in place as well. Regarding the left hip, he notes minimal tenderness to palpation over the lateral proximal thigh. However, pain present in the left groin with any hip attempted range of motion or knee motion. Ankle range of motion is appropriate with minimal left hip pain. 2+ DP and PT pulse. Neurologically intact the sensory light touch and motor function the superficial and deep peroneal as well as plantar distribution. Const Vital Signs, click to edit/add: Vital Signs - 24 hr 03/28/24 16:30 03/28/24 17:47 03/28/24 18:20 Temperature 96.5 F L Pulse Rate Pulse Rate [Pulse Oximeter] 76 61 Respiratory Rate 18 18 18 Blood Pressure [Right Arm] Blood Pressure [Right Upper Arm] 121/107 H 137/81 Pulse Oximetry 91 90 92 Oxygen Delivery Method Room Air Room Air Room Air 03/28/24 23:15 03/28/24 23:16 03/29/24 04:36 Temperature 98.5 F 98.0 F Pulse Rate 60 Pulse Rate [Pulse Oximeter] 61 59 L Respiratory Rate 20 20 Blood Pressure [Right Arm] 129/66 129/68 Blood Pressure [Right Upper Arm] Pulse Oximetry 90 88 Oxygen Delivery Method Room Air Room Air 03/29/24 07:26 03/29/24 07:26 Temperature 99.5 F Pulse Rate Pulse Rate [Pulse Oximeter] 63 63 Respiratory Rate 20 18 Blood Pressure [Right Arm] 142/66 H Blood Pressure [Right Upper Arm] Pulse Oximetry 88 Oxygen Delivery Method Room Air Results Labs Labs: Laboratory Results - last 48 hr 03/28/24 03/28/24 03/29/24 17:20 18:29 05:49 WBC 7.79 6.50 RBC 4.61 4.26 L Hgb 14.7 13.6 Hct 45.2 41.7 MCV 98 98 MCH 32 32 MCHC 33 33 RDW Coeff of Casie 14.1 14.1 Plt Count 93 L 82 L Neut % (Auto) 80.0 H 77.6 H Lymph % (Auto) 9.1 L 7.7 L [place] % (Auto) 9.1 11.7 H Eos % (Auto) 1.0 2.5 Baso % (Auto) 0.3 0.3 Neut # (Auto) 6.20 5.00 Lymph # (Auto) 0.70 L 0.50 L [place] # (Auto) 0.70 0.80 Eos # (Auto) 0.08 0.16 Baso # (Auto) 0.02 0.02 Abs Immat Gran (auto) 0.04 0.01 Imm/Tot Granulo (auto) 0.5 0.2 INR 1.35 H APTT 45 H Sodium 137 136 Potassium 4.3 4.1 Chloride 105 107 Carbon Dioxide 26 25 Anion Gap 6 L 4 L BUN 30 26 Creatinine 0.8 0.6 Estimated Creat Clear 54.75 Estimated GFR 86 94 Glucose 104 113 Calcium 9.3 8.9 Phosphorus 3.0 Magnesium 2.1 Total Bilirubin 1.3 AST 45 H ALT 39 Alkaline Phosphatase 95 Total Protein 6.0 Albumin 3.7 Lab Acknowledgement Test Added Blood Type O Positive Antibody Screen NEGATIVE Diagnostic results Additional Comments: Multiple images are reviewed from [facility] dated 03/28/2024. These were ordered by different provider and reviewed by me. This includes the following: AP pelvis. Acute appearing left femoral neck fracture seen. Primarily valgus impacted with minimal displacement. Also plate and screws across the pubic symphysis with apparent mild malunion to the right inferior pubic ramus. Hardware appears intact without failure or breakage. Arteri arteriosclerosis incidentally noted of the femoral arteries. AP and lateral views of the left femur. Similar appearing left femoral neck valgus impacted fracture that is minimally displaced. No other facial extension of fractures or additional fracture seen throughout the remaining femur. Three views left shoulder shows acute appearing left distal clavicle fracture. Extra-articular. Approaches the malunion from the left mid clavicle fracture location adjacent. Pacemaker is seen in the left chest with leads directed towards the heart. CT scan left hip shows nondisplaced left subcapital femoral neck fracture with slight valgus impacted alignment. Assessment and Plan Assessment and plan (1) Closed fracture of neck of left femur: Problem comment: - Left hip CT that showed nondisplaced left subcapital femoral neck fracture. - Orthopedic surgery aware, pending surgical intervention 03/29 - NPO, last dose of ASA 03/28 - no h/o previous anesthesia or surgical complications with previous procedures, baseline EKG and CXR - chronic conditions optimized for urgent procedure Status: Acute Total time spent: Total time spent is greater than 50% in coordination of care (as documented) at patient's floor/unit and/or counseling patient: (2) Closed fracture of left clavicle: Problem comment: - Acute fracture of the distal left clavicle - in sling, Ortho has been consulted Status: Acute Total time spent: Total time spent is greater than 50% in coordination of care (as documented) at patient's floor/unit and/or counseling patient: (3) Fall: Problem comment: - Hx of imbalance - Pt states that his stroke in 2022 only affected his vision (peripheral vision, mainly RT), no weakness. Has completed outpatient vision therapy - Ordered PT/OT Status: Acute Total time spent: Total time spent is greater than 50% in coordination of care (as documented) at patient's floor/unit and/or counseling patient: (4) Pacemaker: Problem comment: - Check report below from his [facility] clinic last month. 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 Normal left ventricular systolic function. Calculated left ventricular ejection fraction (modified Conklin technique) is 58 %. No regional wall motion abnormalities. 2. Mild concentrically increased left ventricular wall thickness. BP 158/85 mmHg. 3. Normal right ventricular chamber size. Normal right ventricular systolic function. Estimated right ventricular systolic pressure is 28 mmHg. 4. Severe left atrial enlargement. 5. Aortic valve sclerosis without stenosis. Mild aortic valve regurgitation. 6. 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 Trivial mitral valve regurgitation. 7. Mildly indexed ascending aorta dimension (4 cm, 2 cm/m?). 8. Atrial septum was not well visualized. No evidence of inter-atrial shunt by color flow Doppler Status: Chronic Total time spent: Total time spent is greater than 50% in coordination of care (as documented) at patient's floor/unit and/or counseling patient: (6) CARROLL (obstructive sleep apnea): Problem comment: Uses CPAP at home Status: Chronic Total time spent: Total time spent is greater than 50% in coordination of care (as documented) at patient's floor/unit and/or counseling patient: (7) Thrombocytopathia: Status: Chronic Total time spent: Total time spent is greater than 50% in coordination of care (as documented) at patient's floor/unit and/or counseling patient: (8) Austin's esophagus: Problem comment: -On a PPI Status: Chronic Total time spent: Total time spent is greater than 50% in coordination of care (as documented) at patient's floor/unit and/or counseling patient: (9) Anxiety: Problem comment: - recent stressors ('s illness, caregiver burden) - has been on Sertraline since February 2023 - close PCP f/u as well Status: Acute Total time spent: Total time spent is greater than 50% in coordination of care (as documented) at patient's floor/unit and/or counseling patient: Plan Had a good discussion today with the patient. I helped him understand his 2 separate known fractures (left distal clavicle adjacent to the previous mid clavicle malunion and his left femoral neck fracture). I do think the clavicle can be treated non operatively. Sling for comfort. Gentle range of motion certainly of the elbow, wrist, and fingers as tolerated. This is a rather distal fracture and fixation with plate and screws with difficult accordingly. In addition, it is nondisplaced and should do well nonoperatively. It will make his rehab time more difficult as using a walker will not be practical. Regarding left femur fracture, I do think surgical fixation of this is prudent. Given its minimal displaced nature, I do think fixation with plate and screw/ORIF is prudent. We discussed the risks, benefits, and alternatives to this urgent surgery. This includes, but is not limited to infection, wound healing issues, nonunion, hardware failure, CA, stroke, VTE, and . His thrombocytopenia is noteworthy, but at 82,000 this morning I do think surgery is still safe to undergo. I have communicated/coordinating care with the anesthesia team. As we do not of platelets in our facility, platelets have been ordered so that they would be here in the event of an emergency. He states understanding. Indeed he would like to proceed with surgery. We will plan to do it this morning. In the postoperative time, again I would expect weightbear as tolerated on left lower extremity. Typically a walker would be use for balance assistance, but this would be difficult with his left clavicle fracture. He will likely benefit from a retirement facility/rehab facility and may need max assist/Felicita lift in the short term.
--- NOTE | 2024-03-29 08:30 | CRLHL7_ITS ---
For Patients: As a result of the Cures Act, medical imaging exams and procedure reports are released immediately into your electronic medical record. You may view this report before your referring provider. If you have questions, please contact your health care provider. Indication: Fracture fixation Technique: Two fluoroscopic images of the left hip. Fluoroscopic time 63.7 seconds. IMPRESSION: Fluoroscopic guidance for open reduction internal fixation left proximal femoral fracture. Dictated by Hollis Nathan MD @ 03/29/2024 5:37:01 PM (Electronically Signed)
[2024-03-29] MEDS: CEFAZOLIN 2 GM in 0.9 % SODIUM CHLORIDE Mini-bag 100 ML IVPB ×3 (09:00→22:44)
[2024-03-29 09:10] LABS: INR 1.32 (0.91-1.10); Prothrombin Time 17.2 Seconds
--- NOTE | 2024-03-29 09:19 | SUR.OPER ---
PATIENT QUESTIONS ANSWERED SATISFACTORILY PREOPERATIVELY. PATIENT BROUGHT TO OR #3 PER BED. Patient positioned supine on OR #3 bed. The perioperative team supported right arm on arm board. LEFT ARM POSITIONED ON PT. ABDOMEN USING THE DRAW SHEET. Final approval of positioning by surgeon.
--- NOTE | 2024-03-29 09:25 | REH.PT ---
PT and OT orders received. Surgery scheduled for 03/29/24. Held both therapy assessments for today. Will begin physical therapy Saturday03/30/24.
--- NOTE | 2024-03-29 09:34 | P.NB_ITS ---
Nerve Block Nerve Block Time Seen by Provider: 08:30 Date Seen: 03/29/24 Type of block requested by surgeon for post-operative analgesia: LINDA/LFCN Time out performed: Yes Verification of patient name: Yes Verification of date of : Yes Site marking: site marked Name of person performing procedure: Vinny John Continuous monitoring Was continuous monitoring of O2 sat, B/P, manager equipment, recorded every 15 minutes?: Yes Procedure Checklist: sterile prep, needles and gloves Ultrasound guided. Images saved: Yes Medications given in 5ml increments after negative aspiration: Ropivicaine %: 0.5 mL: 30 Needle gauge: 21 Decadron (mg): 10 Precedex (mcg): 25 Patient tolerated procedure well: Yes Additional comments: Injected in 5mL increments after negative aspiration Block Charges Block Charge (with Pro Fee): Other Periph Nerve Block Use of Ultrasound Machine for Block: Yes- US Guidance/pain block
[2024-03-29] MEDS: 0.9 % SODIUM CHLORIDE 1000 ml 1,000 ML 75 ML IV (09:45)
--- NOTE | 2024-03-29 10:11 | P.ORPRC_ITS ---
Procedure Note Date of procedure: 03/29/24 Procedure: PREOPERATIVE DIAGNOSES: 1. Left femoral neck fracture, minimally displaced, valgus impacted pattern, extra-articular POSTOPERATIVE DIAGNOSES: 1. Left femoral neck fracture, minimally displaced, valgus impacted pattern, extra-articular NAME OF OPERATION: 1. Left femur open reduction and internal fixation 2. [id number] - intraoperative fluoroscopy up to 1 hour. SURGEON: Jean Claude Marley MD LAMINATION MACHINE OPERATOR: Mane Arnold PA-C. Of note, an health information assistant was critical for this case to aide in patient positioning, extremity positioning, tissue retraction, instrument manipulation, and closure. ANESTHESIA: General endotracheal anesthetic IMPLANTS: Synthes femoral neck system (FNS) with 1 hole side plate with associated screw, a lag screw, and divergent femoral head screw EBL: 50 mL COMPLICATIONS: None evident INDICATIONS: The patient is a pleasant, 88-year-old male who unfortunately sustained a fall within the last 24 hours. They landed on their left hip and were unable to bear weight. They experienced significant pain which prompted a visit to [facility]. X-rays were obtained and revealed a proximal femur fracture consistent with that described above. Given these findings, along with the desire to help with pain control and improve mobility/mobilization, surgery was recommended to stabilize the fracture and prevent it from displacing. PROCEDURE: Following a thorough discussion of risks, benefits, and alternatives, consent was obtained and the left hip was marked. After obtaining proper medical evaluation determining the patient was optimized prior to surgery, they were brought to the operating room and placed supine on the operating table. Induction of anesthesia undertaken. 2 g IV Ancef was administered within 1 hr of incision preoperatively. Proper time-out was performed identifying proper patient, site, and procedure. The operative extremity was prepped & draped in the appropriate sterile fashion using ChloraPrep after the patient was positioned on the fracture table with the head in neutral alignment and all bone prominences well padded. C-arm fluoroscopic imaging was utilized to obtain AP and lateral views of the operative hip. This indeed confirmed proper position of the proximal femur fracture. 10 blade skin incision was made distal to the greater trochanteric tip. Sharp incision through skin and ITB band allowed palpation of the proximal femur distal to the greater trochanteric tip. A partially threaded guidewire was initially placed near the center of the femoral neck position on both AP and lateral planes. Following this the associated steps for placement of the FNS device were completed sequentially including the bolt, crossing screw for 1 hole plate, and anti-rotation screw. C-arm fluoroscopic imaging confirmed fracture to remain stable, screws to be extra-articular, and the femur to now be moving as a single unit. Irrigation normal saline was performed followed by closure with # 0 Vicryl for the ITB band, 2-O Vicryl and 4-0 Monocryl for subcutaneous and subcuticular closure, respectively. The patient was awoken from anesthesia and transferred to the PACU in stable condition. PLAN: 1. Weight bear as tolerated operative lower extremity. 2. Encouraged ice. 3. Oxycodone for pain as needed. 4. 23 hr perioperative antibiotics. 5. Chemoprophylaxis for DVT prophylaxis along with Jerry reese and SCDs.
[2024-03-29 10:40] LABS: Platelet Count* 79 K/uL (140-440)
--- NOTE | 2024-03-29 11:00 | P.ANES_ITS ---
Anesthesia Charges Start Date/Time Anesthesia Start Date: 03/29/24 Anesthesia Start Time: 08:27 Stop Date/Time Anesthesia Stop Date: 03/29/24 Anesthesia Stop Time: 10:21 Summary Emergency: RADAR TESTER Extremes of Age - Over 70 or under 1: RADAR TESTER
--- NOTE | 2024-03-29 11:00 | W.ANESCHARGE ---
Anesthesia Charges Start Date/Time Anesthesia Start Date: 03/29/24 Anesthesia Start Time: 08:27 Stop Date/Time Anesthesia Stop Date: 03/29/24 Anesthesia Stop Time: 10:21 Summary Emergency: COMMERCIAL ASSISTANT Extremes of Age - Over 70 or under 1: COMMERCIAL ASSISTANT
--- NOTE | 2024-03-29 12:51 | PM.EN ---
Chart Event Note Chart Event Note: No concerning bleeding during or post-procedure. Received 2U of platelets per anesthesia provider. Will assess CBC on POD 1 to help determine postoperative prophylaxis plan (restarting home ASA dose 03/30; if platelets recovered, will consider additional coverage with Xarelto).
[2024-03-29] MEDS: SERTRALINE 50 MG TABLET 25 MG PO (13:59)
[2024-03-29] MEDS: ACETAMINOPHEN 325 MG TABLET 975 MG PO (15:48)
[2024-03-29] MEDS: OXYCODONE 5 MG TABLET PO ×2 (15:49→22:45)
--- NOTE | 2024-03-29 18:37 | PC.NURSE ---
Nursing Care Hours: [id number] Pt prepped and taken to surgery this morning without complication. Arrived to floor at 1100. Post op vitals remained stable, pt got up to chair with 2 assist using quad-cane and gait belt. BSC with with one assist. Bandage CDI, pedal pulses present. Second unit of platelets infused. Tolerating regular diet. IV patent, Franklin patent.
[2024-03-29] MEDS: ATORVASTATIN 10 MG TABLET 40 MG PO (20:27)
[2024-03-29] MEDS: SENNOSIDES 1 TAB TABLET 2 TAB PO (20:27)
[2024-03-29] MEDS: LATANOPROST 0.005% OPHTH 1 DROP EYE-BOTH (20:29)
[2024-03-30] VITALS (8 sets, daily range): BP systolic 101–162; BP diastolic 63–78; PULSE 60–67; RESP 16–20; TEMP 36.4–36.8; O2SAT 90–94
[2024-03-30] MEDS: OXYCODONE 5 MG TABLET PO ×4 (05:23→20:04)
[2024-03-30] MEDS: CEFAZOLIN 2 GM in 0.9 % SODIUM CHLORIDE Mini-bag 100 ML IVPB (05:24)
--- NOTE | 2024-03-30 06:28 | PC.NURSE ---
End of shift [id number] - Pt alert, oriented, cooperative, and pleasant. Up with 2 assist and quad walker/gait belt. Able to stand/pivot and take small steps to ambulate from bed to chair. Pain reported as 2/10, managed with medication per MAR with pt reporting improved comfort. Tolerating RA, regular diet/fluids. Ice pack on surgical site and on L collarbone/shoulder. L arm in sling per MD order. Dressing CDI. Pt appears to be resting comfortably in bed with call light within reach.
[2024-03-30 07:03] LABS: Basophils Percent Auto 0.1 % (0.0-3.0); Hematocrit 37.2 % (37.0-53.0); Hemoglobin* 12.1 gm/dL (13.5-17.5); Immature Granulocytes Pct Auto 0.1 %; Lymphocytes Percent Auto 5.7 % (20-44); Mean Corpuscular HGB Conc 33 gm/dL (32-36); Mean Corpuscular Hemoglobin 32 pg (26-34); Mean Corpuscular Volume 99 fL (80-100); Monocytes Percent Auto 9.4 % (0.0-11.0); Neutrophils Percent Auto 84.7 % (42.0-72.0); Platelet Count* 107 K/uL (140-440); RDW Coefficient of Variation % 14.1 % (11.5-15.5); Red Blood Count 3.75 m/uL (4.30-5.90); White Blood Count* 11.67 K/uL (4.50-11.00)
[2024-03-30 07:05] LABS: Slide Review Reflex No
[2024-03-30 07:21] LABS: Albumin* 3.4 g/dL (3.3-5.0); Chloride* 106 mmol/L (96-114); Potassium* 4.3 mmol/L (3.6-5.1); Sodium* 136 mmol/L (135-149)
[2024-03-30 07:23] LABS: Creatinine* 0.6 mg/dL (0.5-1.5); Est. Creatinine Clearance* 54.75; Estimated Glomerular Filt Rate 94 ml/min
[2024-03-30 07:24] LABS: Alanine Aminotransferase* 28 U/L (4-50); Alkaline Phosphatase* 77 U/L (40-150); Anion Gap 3 mEq/L (7-15); Aspartate Amino Transferase* 35 U/L (12-35); Bilirubin Total* 0.8 mg/dL (0.1-1.5); Blood Urea Nitrogen* 26 mg/dL (7-30); Carbon Dioxide* 27 mmol/L (20-32); Glucose* 135 mg/dL (60-115); Total Protein* 5.7 g/dL (6.0-8.3)
[2024-03-30 07:25] LABS: Calcium* 8.5 mg/dL (8.4-10.6)
--- NOTE | 2024-03-30 09:04 | PM.IMPN1 ---
Progress Note: A&P Assessment and plan (1) Closed fracture of neck of left femur: Problem details: - Left hip CT that showed nondisplaced left subcapital femoral neck fracture - s/p ORIF with Dr. Marley on 03/29/24 Status: Acute (2) Closed fracture of left clavicle: Problem details: - Acute fracture of the distal left clavicle - in sling, Ortho has been consulted Status: Acute (3) Fall: Problem details: - Hx of imbalance - Pt states that his stroke in 2022 only affected his vision (peripheral vision, mainly RT), no weakness. 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 Normal left ventricular systolic function. Calculated left ventricular ejection fraction (modified Conklin technique) is 58 %. No regional wall motion abnormalities. 2. Mild concentrically increased left ventricular wall thickness. BP 158/85 mmHg. 3. Normal right ventricular chamber size. Normal right ventricular systolic function. Estimated right ventricular systolic pressure is 28 mmHg. 4. Severe left atrial enlargement. 5. Aortic valve sclerosis without stenosis. Mild aortic valve regurgitation. 6. 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 Trivial mitral valve regurgitation. 7. Mildly indexed ascending aorta dimension (4 cm, 2 cm/m?). 8. Atrial septum was not well visualized. 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 Continue PPI - likely TCU on 03/31 Subjective Date Seen: 03/30/24 Interval history: Ming was admitted to the hospital on 03/28 after a mechanical fall; found to have a distal L clavicular fracture and a L subcapital femoral neck fracture. He had an ORIF with Dr. Marley of Orthopedic Surgery on 03/29/24. Received 2U of platelets during procedure, given preoperative platelets of 79. Ming takes a daily ASA for CVA. Platelets today are >100. This morning, Ming is feeling well. He has been able to shuffle for movement with some pain. L arm remains in sling. No concerns for hospitalist team. He is amenable to placement if needed. Exam Narrative: Exam Narrative: GEN: Alert and oriented, sitting up in bed, nontoxic HEENT: Small, stable hematoma above right eye, EOMIs bilaterally CV: RRR, no concerning murmurs R: LCTA bilaterally without concerning wheezing Ext: Wearing sling LUE, normal pulse L wrist, normal capillary refill LUE Skin: Bruising right eye as noted above, scattered AKs over extremities Neuro: No focal deficits Psych: Appropriate Const: Vital Signs, click to edit/add: Vital Signs - 24 hr 03/29/24 10:16 03/29/24 10:20 03/29/24 10:25 Temperature 97.7 F Pulse Rate 60 61 63 Pulse Rate [Pulse Oximeter] Respiratory Rate 18 18 16 Blood Pressure 131/61 129/66 121/60 Blood Pressure [Ri ght Arm] Pulse Oximetry 95 94 96 Oxygen Delivery Me thod OxyMask OxyMask OxyMask Oxygen Flow Rate 10 10 10 03/29/24 10:30 03/29/24 10:35 03/29/24 10:40 Temperature 97.5 F L Pulse Rate 61 60 62 Pulse Rate [Pulse Oximeter] Respiratory Rate 18 16 16 Blood Pressure 124/63 127/66 125/64 Blood Pressure [Ri ght Arm] Pulse Oximetry 95 95 94 Oxygen Delivery Me thod OxyMask OxyMask OxyMask Oxygen Flow Rate 8 6 6 03/29/24 10:45 03/29/24 10:50 03/29/24 10:54 Temperature 97.5 F L 97.5 F L Pulse Rate 60 60 60 Pulse Rate [Pulse Oximeter] Respiratory Rate 18 16 16 Blood Pressure 123/67 131/64 129/68 Blood Pressure [Ri ght Arm] Pulse Oximetry 94 95 94 Oxygen Delivery Me thod OxyMask OxyMask OxyMask Oxygen Flow Rate 6 6 6 03/29/24 11:16 03/29/24 11:30 03/29/24 11:45 Temperature 98.3 F 98.5 F Pulse Rate 62 60 60 Pulse Rate [Pulse Oximeter] Respiratory Rate 20 18 18 Blood Pressure 132/64 127/66 135/71 Blood Pressure [Ri ght Arm] Pulse Oximetry 95 90 90 Oxygen Delivery Me thod OxyMask OxyMask OxyMask Oxygen Flow Rate 6 4 3 03/29/24 11:49 03/29/24 12:00 03/29/24 12:06 Temperature 98.8 F Pulse Rate 60 60 Pulse Rate [Pulse Oximeter] Respiratory Rate 18 18 18 Blood Pressure 135/71 132/68 141/70 H Blood Pressure [Ri ght Arm] Pulse Oximetry 88 91 95 Oxygen Delivery Me thod Oxygen Flow Rate 03/29/24 15:00 03/29/24 15:00 03/29/24 15:00 Temperature Pulse Rate 61 Pulse Rate [Pulse Oximeter] 60 Respiratory Rate 18 18 Blood Pressure Blood Pressure [Ri ght Arm] Pulse Oximetry 90 Oxygen Delivery Me thod Room Air Oxygen Flow Rate 03/29/24 20:53 03/29/24 23:00 03/30/24 00:34 Temperature 97.9 F 98 F Pulse Rate 60 Pulse Rate [Pulse Oximeter] 61 61 Respiratory Rate 20 16 Blood Pressure Blood Pressure [Ri ght Arm] 114/55 L 116/63 Pulse Oximetry 90 90 Oxygen Delivery Me thod Room Air Room Air Oxygen Flow Rate 03/30/24 00:40 03/30/24 03:00 Temperature 97.5 F L Pulse Rate Pulse Rate [Pulse Oximeter] 64 Respiratory Rate 20 20 Blood Pressure Blood Pressure [Ri ght Arm] 162/78 H Pulse Oximetry 90 92 Oxygen Delivery Me thod Room Air Room Air Oxygen Flow Rate Labs Labs: Laboratory Results - last 24 hr 03/29/24 03/29/24 03/30/24 05:49 10:36 06:21 WBC 11.67 H RBC 3.75 L Hgb 12.1 L Hct 37.2 MCV 99 MCH 32 MCHC 33 RDW Coeff of Casie 14.1 Plt Count 79 L 107 L Neut % (Auto) 84.7 H Lymph % (Auto) 5.7 L Bureau % (Auto) 9.4 Eos % (Auto) 0.0 Baso % (Auto) 0.1 Neut # (Auto) 9.90 H Lymph # (Auto) 0.70 L Bureau # (Auto) 1.10 H Eos # (Auto) 0.00 Baso # (Auto) 0.00 Abs Immat Gran (auto) 0.00 Imm/Tot Granulo (auto) 0.1 INR 1.32 H Sodium 136 Potassium 4.3 Chloride 106 Carbon Dioxide 27 Anion Gap 3 L BUN 26 Creatinine 0.6 Estimated Creat Clear 54.75 Estimated GFR 94 Glucose 135 H Calcium 8.5 Total Bilirubin 0.8 AST 35 ALT 28 Alkaline Phosphatase 77 Total Protein 5.7 L Albumin 3.4 Blood Type O Positive Antibody Screen NEGATIVE
[2024-03-30] MEDS: OMEPRAZOLE 20 MG CAPSULE DR 40 MG PO (10:02)
[2024-03-30] MEDS: ASPIRIN 81 MG TABLET EC PO (10:02)
[2024-03-30] MEDS: FERROUS SULFATE 325 MG TABLET PO (10:03)
[2024-03-30] MEDS: SENNOSIDES 1 TAB TABLET 2 TAB PO ×2 (10:03→20:05)
[2024-03-30] MEDS: TAMSULOSIN HCL 0.4 MG CAPSULE PO (10:04)
[2024-03-30] MEDS: SERTRALINE 50 MG TABLET 25 MG PO (10:04)
[2024-03-30] MEDS: FINASTERIDE 5 MG TABLET PO (10:04)
[2024-03-30] MEDS: SODIUM CHLORIDE 0.9 % (FLUSH) 10 ML SYRINGE 5 ML IVF ×2 (10:06→20:05)
--- NOTE | 2024-03-30 11:08 | PM.ORPN ---
Subjective Subjective Date Seen: 03/30/24 Principal diagnosis: Status postop day 1 left femoral neck ORIF Interval history: Patient reports doing well. Just finished PT and is feeling a little lightheaded, which continues to improve during our conversation. No acute events over night. Per hospitalist, they have started xarelto and his daily ASA today. Pain managed with scheduled and PRN medications, ice. DVT prophylaxis: rivaroxaban 10mg once daily, and ASA 81mg once daily, SCDs, walking. Denies fevers, chills, aches, N/V, CP, SOB/BURK. Reports more pain left shoulder/clavicle today than the hip. Dr. Humphries treated his left clavicle fracture in the past, non-operative. Ortho Exam Narrative Exam Narrative: -Patient appears comfortable in recliner; therapy present; no apparent acute distress. Patient is diaphoretic just finishing therapy. -Alert and oriented times 3 -Operative hip moderately swollen; soft tissues supple; no obvious erythema. Ecchymosis minimal. Warmth appropriate -Surgical dressings clean, dry, intact; no obvious drainage, no erythematous streaking peripheral to the bandage -Bilateral calves soft and supple; no significant swelling, edema, tenderness, erythema, discoloration, warmth, or palpable cords -2+ DP/PT pulses, intact dermatomes and myotomes distally (5/5 strength). No numbness about the lateral femoral cutaneous nerve distribution. -Ecchymosis to the left shoulder and clavicle region with mild swelling. TTP distal clavicle -Sling in place -2+ radial pulse, pink warm digits with brisk cap refill; intact dermatomes and myotomes distally including the radial, ulnar, and median nerve distributions Const Vital Signs, click to edit/add: Vital Signs - 24 hr 03/29/24 11:16 03/29/24 11:30 03/29/24 11:45 Temperature 98.3 F 98.5 F Pulse Rate 62 60 60 Pulse Rate [Pulse Oximeter] Respiratory Rate 20 18 18 Blood Pressure 132/64 127/66 135/71 Blood Pressure [Right Arm] Pulse Oximetry 95 90 90 Oxygen Delivery Method OxyMask OxyMask OxyMask Oxygen Flow Rate 6 4 3 03/29/24 11:49 03/29/24 12:00 03/29/24 12:06 Temperature 98.8 F Pulse Rate 60 60 Pulse Rate [Pulse Oximeter] Respiratory Rate 18 18 18 Blood Pressure 135/71 132/68 141/70 H Blood Pressure [Right Arm] Pulse Oximetry 88 91 95 Oxygen Delivery Method Oxygen Flow Rate 03/29/24 15:00 03/29/24 15:00 03/29/24 15:00 Temperature Pulse Rate 61 Pulse Rate [Pulse Oximeter] 60 Respiratory Rate 18 18 Blood Pressure Blood Pressure [Right Arm] Pulse Oximetry 90 Oxygen Delivery Method Room Air Oxygen Flow Rate 03/29/24 20:53 03/29/24 23:00 03/30/24 00:34 Temperature 97.9 F 98 F Pulse Rate 60 Pulse Rate [Pulse Oximeter] 61 61 Respiratory Rate 20 16 Blood Pressure Blood Pressure [Right Arm] 114/55 L 116/63 Pulse Oximetry 90 90 Oxygen Delivery Method Room Air Room Air Oxygen Flow Rate 03/30/24 00:40 03/30/24 03:00 03/30/24 07:00 Temperature 97.5 F L Pulse Rate Pulse Rate [Pulse Oximeter] 64 Respiratory Rate 20 20 Blood Pressure Blood Pressure [Right Arm] 162/78 H Pulse Oximetry 90 92 Oxygen Delivery Method Room Air Room Air Room Air Oxygen Flow Rate 03/30/24 07:00 Temperature 98.3 F Pulse Rate Pulse Rate [Pulse Oximeter] 63 Respiratory Rate 16 Blood Pressure Blood Pressure [Right Arm] 127/64 Pulse Oximetry 91 Oxygen Delivery Method Room Air Oxygen Flow Rate Assessment and Plan Assessment and plan (1) Closed fracture of neck of left femur: Problem details: - Left hip CT that showed nondisplaced left subcapital femoral neck fracture - s/p ORIF with Dr. Marley on 03/29/24 Status: Acute (2) Closed fracture of left clavicle: Problem details: - Acute fracture of the distal left clavicle - in sling, Ortho has been consulted - nonoperative management. Status: Acute (3) Fall: Problem details: - Hx of imbalance - Pt states that his stroke in 2022 only affected his vision (peripheral vision, mainly RT), no weakness. Has completed outpatient vision therapy - Ordered PT/OT Status: Acute (4) Pacemaker: Problem details: - Check report below from his cards clinic last month - Stable Status: Chronic (5) History of stroke: Problem details: - Lt SU[employer]OR [employer] ischemic stroke 03/27 - On ASA and a statin - last TTE 03/27 with below results: 1. Normal left ventricular systolic function. Calculated left ventricular ejection fraction (modified Conklin technique) is 58 %. No regional wall motion abnormalities. 2. Mild concentrically increased left ventricular wall thickness. BP 158/85 mmHg. 3. Normal right ventricular chamber size. Normal right ventricular systolic function. Estimated right ventricular systolic pressure is 28 mmHg. 4. Severe left atrial enlargement. 5. Aortic valve sclerosis without stenosis. Mild aortic valve regurgitation. 6. 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 Trivial mitral valve regurgitation. 7. Mildly indexed ascending aorta dimension (4 cm, 2 cm/m?). 8. Atrial septum was not well visualized. 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 - PT/OT consult for education and assistance. - Social work consult for discharge planning - Prescribed analgesics as needed - DVT prophylaxis: rivaroxaban 10mg qday and ASA 81mg BID and SCDs - WBAT LLE. Non weightbearing LUE (wrist, hand, elbow motion, and pendulums okay; sling for comfort, may use LUE to drink a glass of water/juice). Ensure his LUE is relaxed in the sling, otherwise a shoulder immobilizer could be used if he continues to guard and elevate the LUE. - Anticipation is for discharge to SNF (likely tomorrow 03/31/24) if the patient remains medically stable, pain is controlled, and they are safe with mobilization. - Hospitalist aware of lightheadedness and diaphoresis - he is already feeling better after sitting down and drinking some orange juice and starting to eat
[2024-03-30] MEDS: RIVAROXABAN 10 MG TABLET PO (12:29)
--- NOTE | 2024-03-30 15:08 | PC.SOCIAL ---
Discharge planning: Met with pt and in room regarding d/c plans. They are requesting placement in [facility] for short term rehab. Called and sent information for evauation for admit. 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
--- NOTE | 2024-03-30 18:46 | PC.NURSE ---
End of shift note (): Pt A&Ox3, pleasant, and cooperative. Up with 1 assist, GB, W. Ambulated to bathroom and to chair during shift. VSS. Denies H/N/V/CP/SOB.?Pain has been sitting around -11/12, PRN pain medication given. Relief noted. Tolerating RA and reg diet well. Franklin discontinued @ 1030, pt has still not voided. Bladder scanned; output showed: 116 ml. Encouraged fluids and continuing to monitor. Dressing CDI. Ice pack applied to surgical site and L collarbone/shoulder. Pt is resting with call light in reach.
[2024-03-30] MEDS: ATORVASTATIN 10 MG TABLET 40 MG PO (20:04)
[2024-03-30] MEDS: LATANOPROST 0.005% OPHTH 1 DROP EYE-BOTH (20:05)
[2024-03-30] MEDS: 0.9 % SODIUM CHLORIDE 500 ML IV (20:06)
[2024-03-31] MEDS: ACETAMINOPHEN 325 MG TABLET 975 MG PO ×2 (00:33→08:32)
[2024-03-31] MEDS: OXYCODONE 5 MG TABLET PO ×4 (00:33→12:28)
[2024-03-31 03:00] VITALS: BP 152/85; PULSE 66; RESP 18; TEMP 36.6; O2SAT 91
[2024-03-31 06:39] LABS: Basophils Absolute Auto 0.02 K/uL (0.00-0.30); Basophils Percent Auto 0.2 % (0.0-3.0); Eosinophils Absolute Auto 0.13 K/uL (0.00-0.50); Eosinophils Percent Auto 1.4 % (0.0-7.0); Hematocrit 32.4 % (37.0-53.0); Hemoglobin* 10.4 gm/dL (13.5-17.5); Immature Granulocytes Abs Auto 0.03 K/uL (0.00-0.30); Immature Granulocytes Pct Auto 0.3 %; Lymphocytes Percent Auto 9.3 % (20-44); Mean Corpuscular HGB Conc 32 gm/dL (32-36); Mean Corpuscular Hemoglobin 32 pg (26-34); Mean Corpuscular Volume 101 fL (80-100); Monocytes Percent Auto 12.3 % (0.0-11.0); Neutrophils Percent Auto 76.5 % (42.0-72.0); Platelet Count* 97 K/uL (140-440); RDW Coefficient of Variation % 14.5 % (11.5-15.5); Red Blood Count 3.22 m/uL (4.30-5.90)
[2024-03-31 06:47] LABS: Chloride* 105 mmol/L (96-114)
[2024-03-31 06:48] LABS: Potassium* 4.2 mmol/L (3.6-5.1); Sodium* 138 mmol/L (135-149)
[2024-03-31 06:50] LABS: Creatinine* 0.7 mg/dL (0.5-1.5); Est. Creatinine Clearance* 54.75; Estimated Glomerular Filt Rate 90 ml/min
[2024-03-31 06:51] LABS: Anion Gap 3 mEq/L (7-15); Blood Urea Nitrogen* 33 mg/dL (7-30); Calcium* 8.6 mg/dL (8.4-10.6); Carbon Dioxide* 30 mmol/L (20-32); Glucose* 119 mg/dL (60-115)
[2024-03-31 06:52] LABS: Slide Review Reflex No
[2024-03-31] MEDS: OMEPRAZOLE 20 MG CAPSULE DR 40 MG PO (07:00)
--- NOTE | 2024-03-31 07:34 | PC.NURSE ---
SHIFT NOTE : Pt A&O with periods of confusion noted. PRN Oxycodone and Tylenol given with pt reporting relief. Pt up 1-2 assist to get in and out of bed, 1 assist when walking with his jaime walker. Surgical dressing C/D/I, Active ice in place. Left arm in sling, elevated on pillows. VSS on RA. Denies SOB, CP, and N/V.
[2024-03-31] MEDS: SENNOSIDES 1 TAB TABLET 2 TAB PO (08:37)
[2024-03-31] MEDS: SODIUM CHLORIDE 0.9 % (FLUSH) 10 ML SYRINGE 5 ML IVF (08:37)
[2024-03-31] MEDS: ASPIRIN 81 MG TABLET EC PO (08:37)
[2024-03-31] MEDS: FERROUS SULFATE 325 MG TABLET PO (08:37)
[2024-03-31] MEDS: RIVAROXABAN 10 MG TABLET PO (08:37)
[2024-03-31] MEDS: TAMSULOSIN HCL 0.4 MG CAPSULE PO (08:37)
[2024-03-31] MEDS: FINASTERIDE 5 MG TABLET PO (08:37)
[2024-03-31 09:00] VITALS: PULSE 65; O2SAT 96
[2024-03-31 10:25] VITALS: BP 111/64; PULSE 62; RESP 14; TEMP 36.6; O2SAT 91
--- NOTE | 2024-03-31 10:35 | PC.SOCIAL ---
Addendum entered by JT Howard 03/31/24 11:47: Received call from Florencia, at [facility], confirming they can accept pt to a private room at their facility under Medicare coverage today. Met with pt who is pleased with this plan. Pt is requesting non-emergency ambulance transfer and is aware and agrees to pay privately, estimate of $100 for this transport. At pt's request, called , Kiley, who is aware and agrees with this plan. would like a call to confirm transfer time and she will meet him at [facility]. Original Note: PAS completed # [id number] for admission to [address] [place] [address].
--- NOTE | 2024-03-31 11:44 | PM.DS1 ---
DS: Providers Provider Date Seen: 03/31/24 Date of admission: 03/28/24 18:07 Primary care physician: Jennifer Carter PA-C Admitting Clinician: Antonia Asif MD Consults: 03/28/24 19:34 Consult to Cardiac Cath Technologist [CONS] Routine Comment: Reason for Consult:: Social Service Consult 03/28/24 19:40 Consult to Occupational Therapy [CONS] Routine Comment: Reason(s) for OT Consult:: Evaluate and Treat Any Restrictions?:: See Comment Comment: getting surgery Consult to Physical Therapy [CONS] Routine Comment: Reason(s) for PT Consult:: Evaluate and Treat Any Restrictions?:: See Comment Comment: having surgery 03/28/24 20:26 Consult to Physician [CONS] Routine Comment: Consulting Provider: Jean Claude Marley Has provider been notified: Yes 03/29/24 11:03 Consult to Physical Therapy [CONS] Routine Comment: Reason(s) for PT Consult:: Evaluate and Treat Any Restrictions?:: Wt Bearing as Tolerated Attending Physician on discharge: Chava Kaur Date of Discharge: 03/31/24 DS: Diagnosis Discharge Diagnosis (1) Closed fracture of neck of left femur: Status: Acute Problem details: - Left hip CT that showed nondisplaced left subcapital femoral neck fracture - s/p ORIF with Dr. Marley on 03/29/24 (2) Closed fracture of left clavicle: Status: Acute Problem details: - Acute fracture of the distal left clavicle - in sling, Ortho has been consulted - nonoperative management. (3) Fall: Status: Acute Problem details: - Hx of imbalance - Pt states that his stroke in 2022 only affected his vision (peripheral vision, mainly RT), no weakness. 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 Normal left ventricular systolic function. Calculated left ventricular ejection fraction (modified Conklin technique) is 58 %. No regional wall motion abnormalities. 2. Mild concentrically increased left ventricular wall thickness. BP 158/85 mmHg. 3. Normal right ventricular chamber size. Normal right ventricular systolic function. Estimated right ventricular systolic pressure is 28 mmHg. 4. Severe left atrial enlargement. 5. Aortic valve sclerosis without stenosis. Mild aortic valve regurgitation. 6. 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 Trivial mitral valve regurgitation. 7. Mildly indexed ascending aorta dimension (4 cm, 2 cm/m?). 8. Atrial septum was not well visualized. No evidence of inter-atrial shunt by color flow Doppler (9) Anxiety: Status: Acute Problem details: - recent stressors ('s recent illness, caregiver burden) - has been on Sertraline since February 2023, dose on 03/31/24 of 150 mg once daily - close PCP f/u as well (10) Tremor: Status: Acute DS: Summary Hospital Course Hospital Course: Ming was admitted to the hospital on 03/28 after a mechanical fall; found to have a distal L clavicular fracture and a L subcapital femoral neck fracture. He had an ORIF with Dr. Marley of Orthopedic Surgery on 03/29/24. Received 2U of platelets during procedure, given preoperative platelets of 79. Ming takes a daily ASA for CVA. Platelets >100. Ming is feeling well. He has been able to shuffle for movement with some pain. L arm remains in sling. No concerns for hospitalist team. He is amenable to placement. Status at Discharge Functional status at discharge: uses cane/walker Overall status at discharge: patient is progressing back to baseline Time Spent with Patient Time attestation: Total time spent providing and/or coordinating discharge services: Time spent: Less than 30 minutes Exam Narrative: Exam Narrative: GEN: Alert and oriented, sitting up in bed, nontoxic HEENT: Small, stable hematoma above right eye, EOMIs bilaterally CV: RRR, no concerning murmurs R: LCTA bilaterally without concerning wheezing Ext: Wearing sling LUE, normal pulse L wrist, normal capillary refill LUE Skin: Bruising right eye as noted above, scattered AKs over extremities Neuro: No focal deficits. Able to ambulate with modified walker using right hand Psych: Appropriate Const: Vital Signs, click to edit/add: Vital Signs - 24 hr 03/30/24 15:00 03/30/24 15:00 03/30/24 15:00 Temperature 97.9 F Pulse Rate 64 Pulse Rate [Pulse Oximeter] 67 Respiratory Rate 16 Blood Pressure [Ri ght Arm] 101/70 Pulse Oximetry 94 Oxygen Delivery Me thod Room Air Room Air Oxygen Flow Rate 03/30/24 19:00 03/30/24 23:00 03/30/24 23:00 Temperature 97.7 F 98.1 F Pulse Rate Pulse Rate [Pulse Oximeter] 66 64 64 Respiratory Rate 18 18 18 Blood Pressure [Ri ght Arm] 133/63 123/65 Pulse Oximetry 91 90 Oxygen Delivery Me thod Room Air Room Air Oxygen Flow Rate 2 03/30/24 23:00 03/30/24 23:00 03/31/24 03:00 Temperature 97.8 F Pulse Rate 64 Pulse Rate [Pulse Oximeter] 66 Respiratory Rate 18 18 Blood Pressure [Ri ght Arm] 152/85 H Pulse Oximetry 90 91 Oxygen Delivery Me thod Room Air Room Air Oxygen Flow Rate 03/31/24 09:00 03/31/24 09:00 03/31/24 10:25 Temperature 97.9 F Pulse Rate 65 Pulse Rate [Pulse Oximeter] 62 Respiratory Rate 14 Blood Pressure [Ri ght Arm] 111/64 Pulse Oximetry 96 91 Oxygen Delivery Me thod Room Air Room Air Oxygen Flow Rate DS: Data Data Completed and Pending Completed studies during hospitalization: Procedures Inspection of Lower Intestinal Tract, Via Natural or Artificial Opening Endoscopic (03/06/23) Inspection of Upper Intestinal Tract, Via Natural or Artificial Opening Endoscopic (03/06/23) Transfusion of Nonautologous Red Blood Cells into Peripheral Vein, Percutaneous Approach (03/06/23) Labs on day of discharge: Labs from last 24 hours 03/31/24 05:58 WBC 9.00 RBC 3.22 L Hgb 10.4 L Hct 32.4 L MCV 101 H MCH 32 MCHC 32 RDW Coeff of Casie 14.5 Plt Count 97 L Neut % (Auto) 76.5 H Lymph % (Auto) 9.3 L [place] % (Auto) 12.3 H Eos % (Auto) 1.4 Baso % (Auto) 0.2 Neut # (Auto) 6.90 Lymph # (Auto) 0.80 L [place] # (Auto) 1.10 H Eos # (Auto) 0.13 Baso # (Auto) 0.02 Abs Immat Gran (auto) 0.03 Imm/Tot Granulo (auto) 0.3 Sodium 138 Potassium 4.2 Chloride 105 Carbon Dioxide 30 Anion Gap 3 L BUN 33 H Creatinine 0.7 Estimated Creat Clear 54.75 Estimated GFR 90 Glucose 119 H Calcium 8.6 Imaging left femur x-ray: Radiologist's impression: Mildly displaced subcapital fracture of the left proximal femur. Vascular calcifications. Fixation hardware about the symphysis pubis. CT scan - head: Radiologist's impression: 1. No acute intracranial abnormality. 2. Moderate generalized cerebral volume loss. Encephalomalacia and gliosis of old infarct of the parasagittal left parietal lobe. Chronic deep white matter small vessel ischemic changes. pelvis x-ray: Radiologist's impression: Acute left femoral neck fracture. left shoulder x-ray: Radiologist's impression: Acute fracture of the distal left clavicle. CT left hip: Radiologist's impression: Nondisplaced left subcapital femoral neck fracture. chest x-ray: Radiologist's impression: Left basilar streaky opacities, which may reflect atelectasis. The lungs are otherwise clear. Discharge Plan Discharge Disposition: [facility] Date of Admission: 03/28/24 18:07 Attending Provider on Discharge: Chava Kaur Consulting Providers: Jean Claude Marley Primary Care Provider: Jennifer Carter Condition: Improved Anticipated Discharge Date/Time: 03/31/24 13:26 Discharge Medications: New latanoprost 0.005 % Drops 1 drp ophthalmic (eye) HS 30 Days Qty: 2.5 0RF atorvastatin 40 mg Tablet 40 mg PO HS 30 Days Qty: 30 0RF sertraline 50 mg tablet 150 mg PO DAILY Qty: 90 2RF sennosides-docusate sodium [Senna-S] 8.6-50 mg tablet 1 - 4 tab-cap PO BID PRN (Reason: constipation) Qty: 60 0RF Rx Instructions: Hold medication if experiencing loose stools. aspirin 81 mg tablet,delayed release (DR/EC) 81 mg PO BID Qty: 60 0RF Rx Instructions: Medication to help prevent blood clots postoperatively; take TWICE daily. acetaminophen 500 mg capsule 500 - 1,000 mg PO Q6H MDD 4000mg PRNQty: 100 0RF oxycodone 5 mg tablet 2.5 - 5 mg PO Q4-6H MDD 6 PRN (Reason: pain) Qty: 25 0RF Rx Instructions: Take as needed for postop pain: 2.5mg mild pain, 5mg moderate-severe pain; wean as tolerated. rivaroxaban 10 mg tablet 10 mg PO DAILY Qty: 3 0RF Rx Instructions: Medication for deep vein clot prevention post surgery. Complete this medication before starting Aspirin. Continued cyanocobalamin (vitamin B-12) 1,000 mcg capsule 1,000 mcg PO DAILY finasteride 5 mg tablet 5 mg PO DAILY propranolol 40 mg tablet 40 mg PO BID omeprazole 40 mg capsule,delayed release(DR/EC) 40 mg PO DAILY tamsulosin 0.4 mg capsule 0.4 mg PO DAILY ferrous sulfate 325 mg (65 mg iron) tablet,delayed release (DR/EC) 325 mg PO DAILY Qty: 30 0RF diphenhydramine-acetaminophen [Acetaminophen PM] 25-500 mg tablet 2 tab PO QHS PRN Rx Instructions: CAUTION THIS MEDICATION WILL INCREASE A PERSON'S RISK OF FALLING Held aspirin 81 mg tablet,delayed release (DR/EC) 81 mg PO DAILY Hold Instructions: Resume on 04/28/24. Will take Aspirin twice daily for 1 month. Then go back to Aspiring once daily. Discontinued sertraline 25 mg tablet 25 mg PO DAILY Discharge Orders: Discharge Order (Routine); Ordered 03/31/24 Ordered By: Chava Kaur Activity Level: Activity as Tolerated, Weight Bearing as Tolerated and Other Activity Detail: Wound: ? Remove surgical dressing after 1 week. Remove dressing sooner if integrity is in question. ? No immersing wound in water; showering okay; light scrub with your hand and body soap, rinse, dab dry ? Sutures are under the skin, will dissolve; allow surgical glue to come off naturally; do not scrub the wound or apply ointments/lotions ? Call our office with any redness that streaks, excessive drainage from the wound, or wound gapping. Ice/Elevate: ? Ice as needed for swelling and discomfort (ice pack); elevate extremity frequently above the heart. Motion/Exercise: ? Weight bear as tolerated left lower extremity (jaime walker for ambulation assistance as needed) - no weight-bearing left upper extremity due to clavicle fracture ? Per PT/OT. ? Straight leg raises daily: 1-2 sets of 10 reps Pain Medications: ? Oral narcotic as prescribed. Wean as tolerated. Additional acetaminophen as needed. Blood Clot Prevention (DVT): ? Medication: 5 total days of xarelto, followed by 25 days 81 mg aspirin by mouth twice daily (1 month total treatment). Once aspirin twice daily is complete, return to your aspirin once daily regimen Driving: ? Do not drive while taking narcotic pain medication ? Anticipate 4-6 weeks no driving if operative leg is driving leg Dental: ? No elective dental work for 6 months post-op. If there is an urgent/emergent dental need, contact our office for an antibiotic prescription. Smoking/Alcohol: ? Do not smoke; do no drink alcohol especially when taking postoperative oral narcotic medication Seek Care from you Primary Care Provider if you experience the following issues in the postoperative phase and beyond: ? Bacterial infections such as: pneumonia, bacterial skin infection (cellulitis), UTI, high fever, chills unrelated to the operative body part - call your primary care physician urgently for treatment in hopes to protect your health and the metal implant. Referrals: ? PT, OT per patient preference - evaluate treat total hip arthroplasty protocol, anterior approach (gait training, ROM, ADLs) Vaccines: ? No vaccines until 4-6 weeks postop Right upper extremity: - continue sling for comfort; and try to let the left arm relax in the sling. Come out of the sling frequently for elbow motion, and shoulder pendulums. No overhead lifting. No weight-bearing such as getting off a chair or using a walker with the left arm. Follow up: ? [facility]ie[facility] visit in 1 week or once discharged from SNF ? Ortho surgeon follow-up in 6 weeks; repeat radiographs AP pelvis, cross table lateral operative hip If there are any acute concerns regarding your surgery, please call our orthopedic clinic ([phone]) Discharge Diet: Regular Follow Up Appointments: Jennifer Carter PA-C [Primary Care Provider] - Forms: MyHealth Info Instructions Admit to: SNF Discharge Potential: Good Length of Stay: <30 days Code Status: DNR/DNI Rehab Potential: Good Therapy: Physical Therapy and Occupational Therapy Therapy Orders: Evaluate and Treat, Gait Training and ADL Therapy Orders Additional Information: Additional help via PT to consider his left clavicle fracture Oxygen: No Urinary Catheter: No Orders are good >30 days: Yes Signature: Chava Kaur
[2024-03-31] MEDS: SERTRALINE 100 MG TABLET 150 MG PO (12:00)
[2024-03-31 12:16] VITALS: BP 126/37; PULSE 68; RESP 16; TEMP 36.7; O2SAT 92
--- NOTE | 2024-03-31 13:01 | PC.NURSE ---
Patient discharged to [address] [place] [address]. Report given to DIANA Rueda. All belongings sent with patient. Patient was up with assist of 1-2 and quad base walker. WBAT in LLE and non weightbearing RUE. Passing a lot of flatus. No BM today. Voiding without diifficulty. Pain is controlled with PO pain medications. PIV taken out and catheter intact. Takes pills 1 at a time with water. Vital signs within normal limits. Telemetry was DC'd. Alert and oriented. Dressing clean, dry and intact. Lung sounds clear. Bowel sounds active. Left via non-emergent EMS.
== END 2024-03-31 13:03 | DRG 482 ==
LOC: ED 18:06 → MEDSURG 18:08
PROVIDERS: Family Medicine; Nurse Anesthetist, Certified Registered; Orthopaedic Surgery Sports Medicine; Admitting Provider Student in an Organized Health Care Education/Training Program; Emergency Provider Family Medicine; PCP Physician Assistant; Visit Provider Family Medicine
PROC: 0QS704Z Reposition Left Upper Femur with Internal Fixation Device, Open Approach (ICD-10-PCS; principal; 2024-03-29 08:30)
DX: S72.012A Unspecified intracapsular fracture of left femur, initial encounter for closed fracture (principal); W19.XXXA Unspecified fall, initial encounter; G89.18 Other acute postprocedural pain; R53.1 Weakness; R42 Dizziness and giddiness; I77.810 Thoracic aortic ectasia; F41.9 Anxiety disorder, unspecified; E78.5 Hyperlipidemia, unspecified; W18.30XA Fall on same level, unspecified, initial encounter; Y92.007 Garden or yard of unspecified non-institutional (private) residence as the place of occurrence of the external cause; Z86.73 Personal history of transient ischemic attack (TIA), and cerebral infarction without residual deficits; G47.33 Obstructive sleep apnea (adult) (pediatric); I44.30 Unspecified atrioventricular block; S42.002A Fracture of unspecified part of left clavicle, initial encounter for closed fracture; Z95.0 Presence of cardiac pacemaker; D69.1 Qualitative platelet defects; K22.70 Barrett's esophagus without dysplasia; R26.89 Other abnormalities of gait and mobility; I35.8 Other nonrheumatic aortic valve disorders; R25.1 Tremor, unspecified
CPT/HCPCS: 01210; 36415; 36430; 51701; 64450; 70450; 71045; 72170; 73030; 73501; 73552; 73700; 76000; 76942; 80048; 80053; 83735; 84100; 85025; 85049; 85610; 85730; 86850; 86900; 86901; 93005; 97110; 97116; 97162; 97165; 97530; 97535; 99100; 99140; 99285; A9270; C1713; J0330; J0690; J1100; J1170; J1644; J2270; J2371; J2405; J2704; J2795; J3010; J3490; J7030; J7120; P9073

== ENCOUNTER 2024-03-31 12:56 | Outpatient (CLI) | payer MEDICARE, BC, SELFPAY | END 2024-03-31 12:57 | disposition home or self-care (01) | LOC: AMB 04-03 01:19 | PROVIDERS: PCP Physician Assistant; Visit Provider Family Medicine | DX: S72.002A Fracture of unspecified part of neck of left femur, initial encounter for closed fracture (principal); S42.002A Fracture of unspecified part of left clavicle, initial encounter for closed fracture | CPT/HCPCS: A0425; A0428 ==

== ENCOUNTER 2024-04-03 14:51 | Outpatient (CLI) | payer SELFPAY ==
[2024-04-03 15:27] LABS: Appearance Urine Slightly Cloudy (Clear); Bilirubin Urine Negative (Negative); Blood Urine 3+ (Negative); Color Urine Yellow (Yellow); Glucose Urine Negative (Negative); Ketones Urine Negative (Negative); Leukocyte Esterase Urine Negative (Negative); Nitrite Urine Negative (Negative); Protein Urine 1+ (Negative); Specific Gravity Urine 1.015 (1.000-1.030); Urobilinogen Urine >=8.0 (0.2-1.0); pH Urine 7.5 (5.0-8.5)
[2024-04-03 15:34] LABS: Amorphous Sediment Urine Moderate; RBC Urine 50-100 (0-2); Squamous Epithelial Cell Urine Few (None-Few); WBC Urine 0-2 (0-5)
== END 2024-04-03 14:52 | disposition home or self-care (01) ==
LOC: NPINS 14:52
PROVIDERS: PCP Physician Assistant; Visit Provider Nurse Practitioner Gerontology
DX: R30.0 Dysuria (principal)
CPT/HCPCS: 81001; 87086

== ENCOUNTER 2024-11-06 12:10 | Inpatient (IN) | payer MEDICARE, BC, SELFPAY ==
[2024-11-06] VITALS (18 sets, daily range): BP systolic 111–138; BP diastolic 51–90; PULSE 55–97; RESP 8–22; TEMP 36.1–36.7; O2SAT 94–99; BMI 23.3; BMI 22.9
--- OUTSIDE RECORDS SUMMARY | 2024-11-06 12:12 | XMS_ITS | Clinical Summary ---
Author Organization [facility] Address [address] [place] [address] Care Team Providers Care Receiving Coordinator Name Role Phone Jennifer Carter Primary Care Provider [phone] Allergies Active Allergy Reactions Criticality Noted Date Comments Tree Nut Angioedema 07/14/2012 [place] nuts Medications omeprazole (PRILOSEC) 40 mg Delayed-Release capsuleIndicatio ns:Chronic GERD Take 1 Capsule (40 mg) by mouth once daily before a meal. 90 Capsule 3 02/03/20 24 Active aspirin chewable 81 mg chewable tabletIndication s:Acute ischemic left PRICER stroke (HC) Chew 1 Tablet (81 mg) by mouth once daily with a meal. 90 Tablet 3 03/02/20 24 Active atorvastatin (LIPITOR) 40 mg tabletIndication s:Cerebrovascula r accident (CVA), unspecified mechanism (HC) Take 1 Tablet (40 mg) by mouth at bedtime. 90 Tablet 3 03/02/20 24 Active ferrous sulfate, 65 mg elemental, 324 mg (65 mg iron) Delayed-Release tabletIndication s:iron deficiency anemia Take 1 Tablet (324 mg) by mouth once daily. 03/02/20 24 Active Additional Information Patient taking differently:324 mg OralDAILY WITH MEAL, Indications: iron deficiency anemia, Reported on 11/03/2024 finasteride (PROSCAR) 5 mg tabletIndication s:BPH without urinary obstruction Take 1 Tablet (5 mg) by mouth once daily in the morning. 90 Tablet 3 03/02/20 24 Active sertraline (ZOLOFT) 100 mg tabletIndication s:Current severe episode of major depressive disorder with psychotic features without prior episode (HC) Take 1.5 Tablets (150 mg) by mouth once daily in the morning. 135 Tablet 3 03/02/20 24 Active tamsulosin (FLOMAX) 0.4 mg capsuleIndicatio ns:BPH without urinary obstruction Take 1 Capsule (0.4 mg) by mouth once daily after a meal. 90 Capsule 3 03/02/20 24 Active latanoprost (XALATAN) 0.005 % ophthalmic solution Place 1 Drop into both eyes at bedtime. 01/11/20 24 Active acetaminophen (TYLENOL EXTRA STRGTH) 500 mg tablet Max acetaminophen dose: 4000mg in 24 hrs. One-two tabs every six hours as needed 06/04/20 24 Active propranoloL (INDERAL) 20 mg tabletIndication s:Tremor Take 1 Tablet (20 mg) by mouth two times daily. 180 Tablet 3 06/04/20 24 Active cyanocobalamin (VITAMIN B12) 1,000 mcg tabletIndication s:prevention of vitamin B12 deficiency Take 1 tablet qd 3 days per week. 06/04/20 24 Active sennosides-docus ate (SENOKOT S) (8.6-50 mg) tabletIndication s:Chronic constipation Take 1 Tablet by mouth once daily. 90 Tablet 3 07/13/20 24 Active DULCOLAX, BISACODYL, ORAL Take by mouth. 11/03 025 Discontin ued(*Erika ent states no longer taking) linaCLOtide (Linzess) 72 mcg cap capsuleIndicatio ns:Chronic constipation Take 1 Capsule (72 mcg) by mouth before breakfast. 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 03/13/2023 Anxiety 03/13/2023 CARROLL (obstructive sleep apnea) 02/18/2023 Chronic GERD 02/09/2023 BPH without urinary obstruction 02/09/2023 Iron deficiency anemia 02/09/2023 B12 deficiency 02/09/2023 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 Ventral hernia, unspecified, without mention of obstruction or gangrene 05/07/2011 Encounters Date Type Department Care Team Description 11/06/[address] [address] Jennifer Carter PA Questions; Error-please disregard (error) 11/04/2024 Nurse Triage [address] [address] Anthony Maldonado MD Abnormal Lab Results 11/03/2024 3:35 PM CDT Office Visit [address] [address] Anthony Maldonado MD Rectal Problem (Bleeding rectum since Saturday) 11/03/2024 Travel 10/05/2024 Procedure Only [facility] [address] [place] [address] Device Check (REMOTE MEDTRONIC DUAL CHAMBE... 09/08/2024 E-Visit [facility] [address] [place] [address] Jennifer Carter PA Linzess 09/07/[address] [address] Jennifer Carter PA Message (Call the patient ) 09/02/2024 11:30 AM SPINE SUPERVISOR Office Visit [address] [address] Precious Richey MD Consult (Ventral hernia referred by Dr. Phelps) 09/01/2024 Travel 08/31/2024 11:05 AM SPINE SUPERVISOR Office Visit [facility] [address] [place] [address] Fabiana Phelps, DO Hernia (lower right pubic /couple weeks/) 08/31/2024 Travel 08/29/2024 Travel 08/27/2024 Nurse Triage [facility] [address] [place] [address] Jennifer Carter PA Possible Hernia 08/26/2024 Nurse Triage [facility] [address] [place] [address] Jennifer Carter PA Questions (triage) 08/19/2024 Medical Messaging [facility] [address] [place] [address] Jennifer Carter PA outpatient PT referral from Last 3 Months Immunizations Immunization Administration Dates Next Due COVID-19 VACCINE SPIKEVAX (M ODERNA 50MCG/0.5ML) 12YO+ PFS 10/31/2023,05/24/2023 COVID-19 vaccine (Nivela-Bio NTech 30mcg/0.3mL) 12YO+ BIVALENT PF, MDV 02/07/2023 Influenza Virus, Unspecified 05/03/2009 Influenza, High-dose Inactivated 019,05/05/2018,05/31/2016,05/24,06/10/2014 Influenza, High-dose Quadriv alent Inactivated 05/05/2021 Influenza, IIV3 (Age 6-35 mos) 05/15/2012,2010,05/31/2010 Influenza, IIV3 (Age >=3 years) 06/14/20 13,05/15/2012,05/01/2011,06/16,06/04/2006 Influenza, Inactivated AIIV4 (Age 65+ Years) Preserv Free 05/24/2023,05/16/2022 Influenza, Inactivated IIV3 (Age 65+ Years) Preserv Free 07/16/2024 Pneumococcal Poly,23-Valent (Pneumovax) 06/30/2012,05/09/2011 Pneumococcal conj 13-Valent (Prevnar 13) 11/15/2014 RSV, Recombinant ADJ Reconst ituted (Arexvy 120MCG/0.5mL) 10/11/2023 Td, Preservative Free (age >= 7 Years) Tdap 05/01/2011 Zoster (Shingrix-RZV, recombinant) 08/27/2019,,05/21/2018 Zoster (Zostavax-ZVL, live) 08/01/2012 Family History Relation Name Status Comments Father Mother Social History Tobacco Use Types Packs/Day Years Used Date Smoking Tobacco: Former Cigarettes Q uit: 1955 Smokeless Tobacco: Never Tobacco Cessation:Counseling Given: Not Answered Alcohol Use Standard Drinks/Week Comments Not Currently 0 (1 standard drink = 0.6 oz pur e alcohol) PHQ-2 Answer Date Recorded PHQ-2 TOTAL SCORE 0 03/02/2024 Social Connections Answer Date Recorded Do you often feel lonely or isolated from those around you? 0 06/04/2024 Financial Resource Strain Answer Date R ecorded Difficulty of Paying Living Expenses 3 06/04/2024 Difficulty of Paying Living Expenses Not on file 06/04/2024 Food Insecurity Answer Date Recorded Do you worry your food will run out before you are able to buy more? 1 06/04/2024 Transportation Needs Answer Date Record ed Does lack of transportation keep you from medica l appointments? 1 06/04/2024 Does lack of transportation keep you from work, meetings or getting things that you need? 1 06/04/2024 Housing Stability Answer Date Recorded What is your housing situation today? 1 06/04/2024 Utilities Answer Date Recorded Do you have trouble paying f or utilities (for example, heat, electricity, water, phone)? 1 06/04/2024 Sex and Gender Information Value Date Recorded Sex Assigned at Not on file Legal Sex Male 8:11 AM SPINE SUPERVISOR Gender Identity Not on file Sexual Orientation Not on file Obstetrics History Last Filed Vital Signs Vital Sign Reading Time Taken Comments Blood Pressure 119/68 11/03/2024 3:45 PM CDT Pulse 63 11/03/2024 3:45 PM CDT Temperature 36.5 C (97.7 F) 11/03/2024 3:45 PM CDT Respiratory Rate 16 08/02/2023 10:24 AM SPINE SUPERVISOR Oxygen Saturation 97% 11/03/2024 3:45 PM CDT Inhaled Oxygen Concentration - - Weight 75.9 kg (167 lb 6.4 oz) 11/03/2024 3:45 P M CDT Height 179.3 cm (5' 10.6) 03/02/2024 2:03 PM CD T Body Mass Index 23.61 03/02/2024 2:03 PM CDT Plan of Treatment Upcoming Encounters Date Type Department Care Team (Late st Contact Info) Description 02/12/2025 Procedure Only [facility] [address] [place] [address] Health Maintenance Due Date Last Done Comments COVID-19 vaccine series ( season) 2025 07/16/2024, 10/31/2023, 05/24/2023, Additional history exists BMI (ht and wt on same day) for age 18+ 03/02/2025 03/02/2024, 02/03/2024, 08/02/2023, Additional history exists Depression screening for age 12+ 03/02/2025 03/02/2024, 03/16/2023, 03/15/2023, Additional history exists Medicare Wellness for age 65+ 03/03/2025 03/02/2024, 02/07/2023 Tetanus booster 12/09/2033 12/10/2023, 05/01/2011 Tdap Completed 05/01/2011 Pneumococcal series for age 50+ Completed 11/15/2014, 06/30/2012, 05/09/2011 Zoster (shingles) series for age 50+ Completed 08/27/2019, 07/24/2018, 05/21/2018, Additional history exists RSV vaccine for adults or Completed 10/11/2023 Influenza Vaccine Completed 07/16/2024, , 05/16/2022, Additional history exists Medical Devices Implanted Type Area Health Support Specialist Device Identifier Shelf Expiration Date Model / Serial / Lot Mesh Ventralex St Lg Circ 8.0cm - [id number] Implanted:Qty: 1 on 07/14/2012 at [facility] N/A: Abdomen DAVOL 04/05/2014 [id number] / / [id number] Procedures Procedure Name Priority Date/Time Associated Diagnosis Comments CBC WITH AUTO DIFFERENTIAL Routine 11/03/2024 4:43 PM CDT Rectal bleeding from Last 3 Months Results * (ABNORMAL) CBC AND DIFFERENTIAL (11/03/2024 4:43 PM CDT) [facility] WHITE BLOOD CELL COUNT 5.0 3.8 - 10.8 Thousand/u L [facility] RED BLOOD CELL COUNT 3.18(L) 4.20 - 5.80 Million/uL [facility] HEMOGLOBIN 10.4(L) 13.2 - 17.1 g/dL [facility] HEMATOCRIT 31.3(L) 38.5 - 50.0 % [facility] MCV 98.4 80.0 - 100.0 fL [facility] MCH 32.7 27.0 - 33.0 pg [facility] MCHC 33.2 32.0 - 36.0 g/dL [facility] Comment: For adults, a slight decrease in the calculated MCHC value (in the range of 30 to 32 g/dL) is most likely not clinically significant; however, it should be interpreted with caution in correlation with other red cell parameters and the patient's clinical condition. RDW 12.8 11.0 - 15.0 % [facility] PLATELET COUNT 108(L) 140 - 400 Thousand/u L [facility] MPV 12.4 7.5 - 12.5 fL [facility] ABSOLUTE NEUTROPHILS 2,895 1,500 - 7,800 cells/uL [facility] ABSOLUTE LYMPHOCYTES 1,360 850 - 3,900 cells/uL [facility] ABSOLUTE MONOCYTES 645 200 - 950 cells/uL [facility] ABSOLUTE EOSINOPHILS 60 15 - 500 cells/uL [facility] ABSOLUTE BASOPHILS 40 0 - 200 cells/uL [facility] NEUTROPHILS 57.9 % [facility] LYMPHOCYTES 27.2 % [facility] MONOCYTES 12.9 % [facility] EOSINOPHILS 1.2 % [facility] BASOPHILS 0.8 % [facility] Blood BLOOD SPECIMEN / Unknown 11/03/2024 4:43 PM CDT 11/03/2024 4:45 PM CDT us Anthony Maldonado MD HEMATOLOGY Final Resu lt [facility] [address] [place] [address], [place] [phone] [facility] [address] [place] [address] from Last 3 Months Insurance MEDICARE PART A HB ONLY MEDICARE PART B HB ONLY [place] MR PB ONLY [place] HB ONLY MEDICARE PART A HB ONLY MEDICARE PART B HB ONLY [place] BL[place] HB ONLY [place] MR PB ONLY Advance Directives * Full Code (Latest Code [...] Code Status Discussion: Reviewed Preferences Care Teams Receiving Coordinator Relationship Specialty Start Date End Date Jennifer Carter PA [address] [place] [address] PCP - General Physician Bridge Ironworker Helper 02/09/23
--- OUTSIDE RECORDS SUMMARY | 2024-11-06 12:12 | XMS_ITS | Clinical Summary ---
Author Organization [facility] Address [address] [place] [address] Care Team Providers Care Beef Specialist Name Role Phone Unavailable Primary Care Provider Unavailabl e Source Comments Patient records contain information from all sites at [facility]. For routine questions regarding patient records, call [phone] during business hours, M-F 8:00 AM - 5:00 PM Central Time. Record requests for emergency care only can be directed to [phone] at any time.[facility] Social History Tobacco Use Types Packs/Day Years Used Date Smoking Tobacco: Never Nutrition Answer Date Recorded Nutrition: EVOO Fat Source 13 01/11 Nutrition: Servings of Fruits/Vegetables per Day Not on file 01/11/2019 Dental Answer Date Recorded Dental: Regular Dentist 13 01/12/20 19 Sex and Gender Information Value Date Recorded Sex Assigned at Not on file Legal Sex Male 7:35 AM ELECTRODE CLEANING MACHINE OPERATOR Gender Identity Male 09/06/2020 10:37 AM ELECTRODE CLEANING MACHINE OPERATOR Sexual Orientation Straight 09/06/2020 10 :37 AM ELECTRODE CLEANING MACHINE OPERATOR Last Filed Vital Signs Vital Sign Reading [...] Health Maintenance Due Date Last Done Comments RSV vaccine - (32-36 weeks) or 60+ years (1 - 1-dose 75+ series) 2012 DTaP,Tdap,and Td Vaccines (2 - Td or Tdap) 05/01/2021 05/01/2011 COVID-19 Vaccine (2 - season) 2024 02/07/2023 Influenza Vaccine (#1) 2024 2, 05/05/2021, 06/02/2019, Additional history exists Pneumococcal vaccine (50+ years) Completed 11/15/2014, 06/30/2012, 05/09/2011 Zoster Vaccines Completed 08/27/2019, 07/06, 05/21/2018, Additional history exists IPV Vaccines Aged Out No longer eligi ble based on patient's age to complete this topic
--- OUTSIDE RECORDS SUMMARY | 2024-11-06 12:13 | XMS_ITS | Clinical Summary ---
Author Organization [facility] Address [address] [place] [address] Care Team Providers Care Oil Burner Servicer And Installer Name Role Phone Jennifer Carter PA-C Primary Care Provider [phone] Allergies Active Allergy Reactions Criticality Noted Date Comments Nuts Angioedema 07/14/2012 [place] nuts Medications aspirin (ASA) 81 MG chewable tablet Take 81 mg by mouth daily 04/22/2023 Active atorvastatin (LIPITOR) 40 MG tablet Take 40 mg by mouth daily 04/22/2023 Active azithromycin (ZITHROMAX) 250 MG tablet Take 250 mg by mouth daily ZPack 02/03/2024 Active cyanocobalamin (VITAMIN B-12) 1000 MCG tablet Take 1,000 mcg by mouth daily 04/22/2023 Active Ferrous Sulfate 324 (65 Fe) MG TBEC Take 324 mg by mouth daily 03/26/2023 Active finasteride (PROSCAR) 5 MG tablet Take 1 tablet by mouth every morning 02/07/2023 Active omeprazole (PRILOSEC) [address] capsule Take 40 mg by mouth daily 02/03/2024 Active propranolol (INDERAL) 40 MG tablet Take 40 mg by mouth 2 times daily 08/02/2023 Active sertraline (ZOLOFT) 100 MG tablet Take 150 mg by mouth daily 06/28/2023 Active tamsulosin (FLOMAX) 0.4 MG capsule Take 0.4 mg by mouth daily 02/07/2023 Active latanoprost (XALATAN) 0.005 % ophthalmic solution Place 1 drop into both eyes daily 01/11/2024 Active Social History Tobacco Use Types Packs/Day Years Used Date Smoking Tobacco: Never Passive Smoke Exposure: Never Smokeless Tobacco: Never Tobacco Cessation:Counseling Given: Not Answered Alcohol Use Standard Drinks/Week Comments Yes 0 (1 standard drink = 0.6 oz pur e alcohol) 0-1 drinks per week Adolescent Education Answer Date Record ed Getting School Help Needed Not on file 02/09 Sex and Gender Information Value Date Recorded Sex Assigned at Not on file Legal Sex Male 3:03 AM CASTING ASSISTANT Gender Identity Not on file Sexual Orientation Not on file Last Filed Vital Signs Vital Sign Reading Time Taken Comments Blood Pressure 136/70 02/10/2024 10:00 AM CDT Pulse 60 02/10/2024 9:15 AM CDT Temperature 36.2 C (97.1 F) 02/10/2024 9:06 AM CDT Respiratory Rate 17 02/10/2024 7:34 AM CDT Oxygen Saturation 95% 02/10/2024 10:00 AM CDT Inhaled Oxygen Concentration - - Weight 80.8 kg (178 lb 3.2 oz) 02/10/2024 7:34 A M CDT Height 180.3 cm (5' 11) 01/31/2024 3:00 PM CDT Body Mass Index 24.85 01/31/2024 3:00 PM CDT Plan of Treatment Health Maintenance Due Date Last Done Comments ADVANCE CARE PLANNING 1937 ANNUAL REVIEW OF HM ORDERS 1937 LIPID 1937 FALL RISK ASSESSMENT 2002 RSV VACCINE (1 - 1-dose 75+ series) 2012 MEDICARE ANNUAL WELLNESS VISIT 02/08/2024 02/07/2023 COVID-19 Vaccine ( season) 2024 10/31/2023, 05/24/2023, 02/07/2023, Additional history exists INFLUENZA VACCINE (#1) 2024 , 05/16/2022, 05/05/2021, Additional history exists PHQ-2 (once per calendar year) 2024 DTAP/TDAP/TD IMMUNIZATION (3 - Td or Tdap) 12/09/2033 12/10/2023, 05/01/2011 Pneumococcal Vaccine: 50+ Years Completed 11/15/2014, 06/30/2012, 05/09/2011 ZOSTER IMMUNIZATION Completed 08/27/2019, 07/24/2018, 05/21/2018, Additional history exists HPV IMMUNIZATION Aged Out No longer e ligible based on patient's age to complete this topic MENINGITIS IMMUNIZATION Aged Out No l onger eligible based on patient's age to complete this topic Insurance [facility] MEDICARE [facility] [employer] MEDICARE Care Teams Oil Burner Servicer And Installer Relationship Specialty Start Date End Date Jennifer Carter PA-C [address] [place] [address] PCP - General 01/20/24
--- NOTE | 2024-11-06 12:52 | CRLHL7_ITS ---
For Patients: As a result of the Century Cures Act, medical imaging exams and procedure reports are released immediately into your electronic medical record. You may view this report before your referring provider. If you have questions, please contact your health care provider. INDICATION: Gastrointestinal bleeding, melena. TECHNIQUE: Multiplanar CT angiogram examination of the abdomen and pelvis was performed after the administration of 100 mL Omnipaque 350 intravenous contrast, gastrointestinal bleed protocol. COMPARISON: None. FINDINGS: Lower chest: No focal consolidation. Cardiomegaly. Partially visualized pacemaker leads. Small hiatal hernia with evidence of reflux. No pleural effusions or pneumothorax. Segmental dependent atelectasis. Liver: Subcentimeter hepatic hypodensities, too small to characterize. Gallbladder: Cholecystectomy. Biliary: Unremarkable. Pancreas: Within normal limits. Spleen: Unremarkable. Adrenal glands: Unremarkable. Renal/ureters/bladder: Normal in size and symmetrically enhancing. No obstructive uropathy. No hydronephrosis or obstructive urinary calculi. No suspicious renal masses. The ureters appear unremarkable. Small bladder diverticulum, likely due to chronic outlet obstruction. Pelvis: Mild prostatomegaly. Gastrointestinal: Postsurgical changes from prior small bowel resection. No bowel wall thickening or bowel obstruction. Normal appendix. Colonic diverticulosis. Mild colonic stool burden. Vasculature: No extravasation of contrast suggestive of active arterial hemorrhage. No pooling of contrast material on the delayed venous phase images. No aortic aneurysm. The portal vein remains patent. Extensive atherosclerotic calcifications. Lymph nodes: No pathologic lymphadenopathy by size criteria. Peritoneum: No free fluid or pneumoperitoneum. No drainable fluid collections. Abdominal wall/soft tissues: Unremarkable. Bones: No acute osseous abnormalities. Status post bilateral parasymphyseal and left femoral neck ORIF. Degenerative changes of the visualized thoracolumbar spine. IMPRESSION: 1. There is no active extravasation or delayed venous pooling of contrast material to suggest active gastrointestinal hemorrhage. 2. Colonic diverticulosis without CT evidence of acute diverticulitis. 3. Otherwise, no acute abdominopelvic findings. 4. Prostatomegaly. Please note that all CT scans at this facility use dose modulation, iterative reconstruction, and/or weight-based dosing when appropriate to reduce radiation dose to as low as reasonably achievable. Dictated by Michi Bey MD @ 11/06/2024 3:09:40 PM (Electronically Signed)
--- NOTE | 2024-11-06 12:56 | ED_ITS ---
HPI - General Adult General Date Seen: 11/06/24 Chief complaint: GI Bleed Stated complaint: Rectal bleed Time Seen by Provider: 11/06/24 12:24 History of Present Illness HPI narrative: Patient is an 89-year-old male here with his for evaluation of blood in his stools. He says symptoms have been present for 5 days, he has had sometimes in excess of 5 stooling episodes per day and has had some loss of stool overnight so he has been wearing depends. He has a history of GI bleeding in the past, but says this is been different because stools are darker any seen dark clots as well. He has not had abdominal pain, denies nausea or vomiting. Does have hist ory of diverticulosis, last colonoscopy was in March 2023 and was unremarkable aside from diverticulosis. He notes that he has been feeling somewhat shaky and fatigued, no syncope, no chest pain or shortness of breath. He takes a baby aspirin, no other anticoagulation. Lives independently at home with his . Related Data Home Medications ?Medication ?Instructions ?Recorded ?Confirmed finasteride 5 mg tablet 5 mg PO DAILY 08/27/22 11/06/24 omeprazole 40 mg capsule,delayed 40 mg PO DAILY 03/06/23 11/06/24 release tamsulosin 0.4 mg capsule 0.4 mg PO DAILY bph 03/06/23 11/06/24 aspirin 81 mg tablet,delayed 81 mg PO DAILY 09/19/23 11/06/24 release cyanocobalamin (vitamin B-12) 1,000 mcg PO 3XW 05/05/24 11/06/24 1,000 mcg capsule ferrous sulfate 325 mg (65 mg 325 mg PO DAILY 05/05/24 11/06/24 iron) tablet,delayed release propranolol 20 mg tablet 20 mg PO BID 11/06/24 11/06/24 sennosides 8.6 mg-docusate sodium 1 tab-cap PO DAILY PRN constipation 11/06/24 11/06/24 50 mg tablet (Senna-S) Previous Rx's ?Medication ?Instructions ?Recorded acetaminophen 500 mg capsule 500 - 1,000 mg (1 - 2 x 500 mg) PO 03/31/24 Q6H PRN #100 caps atorvastatin 40 mg tablet 40 mg PO HS 30 days #30 tabs 03/31/24 latanoprost 0.005 % eye drops 1 drp ophthalmic (eye) HS 30 days 03/31/24 #2.5 mL sertraline 50 mg tablet 150 mg (3 x 50 mg) PO DAILY #90 03/31/24 tabs Allergies Allergy/AdvReac Type Severity Reaction Status Date / Time pine nut Allergy Verified 11/06/24 14:11 Review of Systems Status of ROS: Reports: 10 or more systems reviewed and unremarkable except as noted in History and below 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 - Qualitative platelet defects (ICD-10) CARROLL (obstructive sleep apnea) ?G47.33 - Obstructive sleep apnea (adult) (pediatric) (ICD-10) Atypical nevus ?D22.9 - Melanocytic nevi, unspecified (ICD-10) Ascending aorta dilation ?I77.810 - Thoracic aortic ectasia (ICD-10) Chronic GI bleeding ?K92.2 - Gastrointestinal hemorrhage, unspecified (ICD-10) Iron deficiency anemia (03/24/07) ?D50.9 - Iron deficiency anemia, unspecified (ICD-10) Anxiety ?F41.9 - Anxiety disorder, unspecified (ICD-10) Clavus ?L84 - Corns and callosities (ICD-10) Hyperlipidemia ?E78.5 - Hyperlipidemia, unspecified (ICD-10) Fracture of metacarpal bone ?S62.309A - Unspecified fracture of unspecified metacarpal bone, initial encounter for closed fracture (ICD-10) Closed dislocation of fifth metacarpal bone of right hand ?S63.266A - Dislocation of metacarpophalangeal joint of right little finger, initial encounter (ICD-10) Health care directive on file ?Z78.9 - Other specified health status (ICD-10) Hoarse voice quality ?R49.0 - Dysphonia (ICD-10) BPH (benign prostatic hyperplasia) ?N40.0 - Benign prostatic hyperplasia without lower urinary tract symptoms (ICD-10) Tremor ?R25.1 - Tremor, unspecified (ICD-10) Surgical History History of phacoemulsification of cataract with intraocular lens implantation ?Z98.49 - Cataract extraction status, unspecified eye (ICD-10) ?Z96.1 - Presence of intraocular lens (ICD-10) History of excision of lesion ?Z98.890 - Other specified postprocedural states (ICD-10) ?Z87.2 - Personal history of diseases of the skin and subcutaneous tissue (ICD-10) History of YAG laser capsulotomy of lens of right eye ?Z98.41 - Cataract extraction status, right eye (ICD-10) History of YAG laser capsulotomy of lens of left eye ?Z98.42 - Cataract extraction status, left eye (ICD-10) S/P ORIF (open reduction internal fixation) fracture (03/29/24) ?Z98.890 - Other specified postprocedural states (ICD-10) ?Z87.81 - Personal history of (healed) traumatic fracture (ICD-10) H/O hernia repair ?Z98.890 - Other specified postprocedural states (ICD-10) ?Z87.19 - Personal history of other diseases of the digestive system (ICD-10) S/P small bowel resection ?Z90.49 - Acquired absence of other specified parts of digestive tract (ICD- 10) Social History Narrative: 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 Lives with in [place] (she has been undergoing health issues, has MCI). Son Taurus ([facility]# [phone]) and daughter Nury ([facility]) would share medical decision making capabilities if needed. He requests DNR/DNI status. Smoked socially in college, previous social ETOH use, none now. Health care directive on file- Health care directive dated 04/13/20 sent for scanning on 04/22/20. What is your current living situation?: I presently have a place to live Problems where you live: no known problems Problems where you live details: n/a In the past 12 months, utilities in danger of being shut off: no In past 12 months, lack of transportation kept you from medical appts, meetings, work, or getting things needed for daily living: no In the past 12 mos, have been you worried that your food would run out before you had money to buy more?: never true In the past 12 mos, the food you bought just didn't last and you didn't have money to buy more?: never true Highest level of school completed/degree received: Doctoral degree Smoking Status: Never smoker Do you use any of these nicotine containing products: None Second hand tobacco smoke exposure: No How often do you have a drink containing alcohol: monthly or less How many standard drinks containing alcohol do you have on a typical day: 1 or 2 How often do you have six or more drinks on one occasion: Never AUDIT-C Alcohol total score: 1 Non-prescribed substance use: denies use Caffeine: Yes (1 cup/day) How often does anyone, including family, friends and others, physically hurt you : never How often does anyone, including family, friends and others, insult or talk down to you: never How often does anyone, including family, friends and others, threaten you with harm: never How often does anyone, including family, friends and others, scream or curse at you: never Gender Identity: male service: No Exam Narrative: Exam Narrative: Vital signs reviewed In general, alert, nontoxic elderly male. He looks fatigued. Head: Normocephalic, atraumatic. Eyes: Sclera clear. Pupils equal and reactive. Conjunctivae are pale. ENT: Mucous membranes moist. Neck: Supple without adenopathy. Heart: Regular rate and rhythm without murmur. Lungs: Clear. No increased work of breathing, crackles or wheezes. Abdomen: Soft, nondistended. Diffusely mildly tender to palpation without rebound guarding or rigidity. Rectal: No masses. Melanotic stool in the rectal vault. Extremities: Well perfused, pulses intact. No significant edema. Neurologic: Alert, conversant. Speech slow but fluent, face symmetric. Moves all extremities equally. Skin: Warm, dry well perfused. Affect: Normal. Const: Vital Signs, click to edit/add: Vital Signs - 24 hr 11/06/24 12:29 11/06/24 13:23 11/06/24 13:24 Temperature 98.1 F Pulse Rate 69 67 Pulse Rate [Pulse Oximeter] 68 Respiratory Rate 20 16 Blood Pressure 113/65 Blood Pressure [Ri ght Upper Arm] 129/59 L Pulse Oximetry 98 95 97 Oxygen Delivery Me thod Room Air Room Air 11/06/24 13:30 11/06/24 13:45 11/06/24 13:55 Temperature Pulse Rate 65 66 Pulse Rate [Pulse Oximeter] 97 Respiratory Rate 21 8 L 16 Blood Pressure Blood Pressure [Ri ght Upper Arm] 123/90 H Pulse Oximetry 95 96 98 Oxygen Delivery Me thod 11/06/24 14:00 11/06/24 14:01 11/06/24 14:31 Temperature Pulse Rate 65 64 66 Pulse Rate [Pulse Oximeter] Respiratory Rate 18 18 Blood Pressure 115/57 L Blood Pressure [Ri ght Upper Arm] Pulse Oximetry 97 96 96 Oxygen Delivery Me thod 11/06/24 14:45 11/06/24 15:00 11/06/24 15:02 Temperature Pulse Rate 64 66 69 Pulse Rate [Pulse Oximeter] Respiratory Rate 19 22 15 Blood Pressure 125/69 Blood Pressure [Ri ght Upper Arm] Pulse Oximetry 98 94 98 Oxygen Delivery Me thod 11/06/24 15:15 11/06/24 15:30 Temperature Pulse Rate 62 64 Pulse Rate [Pulse Oximeter] Respiratory Rate 19 19 Blood Pressure Blood Pressure [Ri ght Upper Arm] Pulse Oximetry 97 97 Oxygen Delivery Me thod Course Course ED Course: Patient has had GI bleeding for 5 days, now with melena, looks somewhat pale, vital signs are unremarkable, but I would anticipate admission. Labs drawn for CBC, metabolic panel, coags, type and screen. Maintenance fluids ordered. Labs are notable for a white blood cell count of 3.8, hemoglobin of 7.8, platelets are also slightly low 102. Most recent hemoglobin in our system was 10.1, according to patient was checked at [facility] few days ago and was 10 at that time as well. Mild thrombocytopenia is chronic though the leukopenia seems to be new. Coags are notable for an INR of 1.28. Metabolic panel normal, LFTs notable only for an AST of 43. Stool occult blood was positive. Point of care troponin was 0.01. EKG by my review shows a paced rhythm, ventricular rate of 66. Right bundle-branch block. He went on to have a CT scan of the abdomen and pelvis, GI bleed protocol. By my review I do not see any active extravasation, final radiology report reviewed and is likewise negative for any acute GI bleeding. Diverticulosis is noted without evidence of diverticulitis. Admission recommended for serial hemoglobins. Bleeding is likely lower in etiology, patient remains hemodynamically stable. Has not had further bloody stools while in the emergency department. Discussed with Dr. Coley who accepts patient to hospitalist service. Vital Signs Vital signs: Initial Vital Signs Temperature 98.1 F 11/06/24 12:29 Temperature Source Temporal Artery Scan 11/06/24 12:29 Pulse Rate 68 11/06/24 12:29 Pulse Rhythm Irregular 11/06/24 12:29 Respiratory Rate 20 11/06/24 12:29 Blood Pressure 129/59 L 11/06/24 12:29 Blood Pressure Mean 82 11/06/24 12:29 Blood Pressure Position Semi-Fowlers 11/06/24 12:29 Pulse Oximetry 98 11/06/24 12:29 Oxygen Delivery Method Room Air 11/06/24 12:29 Vital Signs Temperature 98.1 F 11/06/24 12:29 Pulse Rate 68 11/06/24 12:29 Respiratory Rate 20 11/06/24 12:29 Blood Pressure 129/59 L 11/06/24 12:29 Pulse Oximetry 98 11/06/24 12:29 Oxygen Delivery Method Room Air 11/06/24 12:29 Temperature 98.1 F 11/06/24 12:29 Pulse Rate 64 11/06/24 15:30 Respiratory Rate 19 11/06/24 15:30 Blood Pressure 125/69 11/06/24 15:02 Pulse Oximetry 97 11/06/24 15:30 Oxygen Delivery Method Room Air 11/06/24 13:23 Medications Administered Medications: Generic Name Dose Route Start Last Admin Trade Name Freq PRN Reason Stop Dose Admin Sodium Chloride 1,000 mls @ 75 mls/hr 11/06/24 12:55 11/06/24 13:16 0.9 % Sodium Chloride 1000 Ml IV 75 mls/hr .[id number] MARIA DOLORES Administration Discontinued Medications Generic Name Dose Route Start Last Admin Trade Name Freq PRN Reason Stop Dose Admin Pantoprazole Sodium 40 mg 11/06/24 12:52 11/06/24 13:16 Pantoprazole Sodium 40 Mg Inj IVP 11/06/24 12:53 40 mg ONCE ONE Administration Medical Decision Making Lab Data Lab results reviewed: Yes I reviewed the patient's lab results Labs: Lab Results 11/06/24 11/06/24 11/06/24 Range/Units 13:03 13:08 13:10 WBC 3.83 L (4.50-11.00) K/uL RBC 2.38 L (4.30-5.90) m/uL Hgb 7.8 L* (13.5-17.5) gm/dL Hct 24.2 L (37.0-53.0) % MCV 102 H (80-100) fL MCH 33 (26-34) pg MCHC 32 (32-36) gm/dL RDW Coeff of Casie 13.8 (11.5-15.5) % Plt Count 102 L (140-440) K/uL Neut % (Auto) 58.7 (42.0-72.0) % Lymph % (Auto) 22.7 (20-44) % Hand % (Auto) 16.4 H (0.0-11.0) % Eos % (Auto) 1.6 (0.0-7.0) % Baso % (Auto) 0.3 (0.0-3.0) % Neut # (Auto) 2.20 (1.7-7.0) K/uL Lymph # (Auto) 0.90 (0.90-2.90) K/uL Hand # (Auto) 0.60 (0.00-0.90) K/UL Eos # (Auto) 0.10 (0.00-0.50) K/uL Baso # (Auto) 0.00 (0.00-0.30) K/uL Abs Immat Gran (auto) 0.00 (0.00-0.30) K/uL Imm/Tot Granulo (auto) 0.3 % INR 1.28 H (0.91-1.10) APTT 31 (23-33) Seconds Sodium 139 (135-149) mmol/L Potassium 3.7 (3.6-5.1) mmol/L Chloride 107 (96-114) mmol/L Carbon Dioxide 24 (20-32) mmol/L Anion Gap 8 (7-15) mEq/L BUN 37 H (7-30) mg/dL Creatinine 0.8 (0.5-1.5) mg/dL Estimated Creat Clear 53.74 Estimated GFR 86 ml/min Glucose 112 (60-115) mg/dL Calcium 8.7 (8.4-10.6) mg/dL Total Bilirubin 0.6 (0.1-1.5) mg/dL AST 43 H (12-35) U/L ALT 34 (4-50) U/L Alkaline Phosphatase 71 (40-150) U/L C-Reactive Protein 0.8 (0.5-1.0) mg/dL Total Protein 5.3 L (6.0-8.3) g/dL Albumin 3.4 (3.3-5.0) g/dL Stool Occult Blood Positive (Negative) POC Troponin I 0.01 (0.01-0.04) ng/ml Blood Type O Positive Antibody Screen NEGATIVE Imaging Data CT scan - abdomen: Attestation: I have reviewed the pertinent imaging results. Radiologist's impression: [place] [address] Diagnostic Imaging Report Patient: Ming Schafer MR#: [id number] : 1935 Acct:[id number] Loc: ED Service Date: 11/06/[address]: Ordering Physician: Jennifer Stoo M.D. Date of Service: 11/06/24 Procedure(s): CT angio abd pel GI Bleed Accession Number(s): [id number] cc: Jennifer Soto M.D.; Jennifer Carter PA-C~ For Patients: As a result of the Cures Act, medical imaging exams and procedure reports are released immediately into your electronic medical record. You may view this report before your referring provider. If you have questions, please contact your health care provider. INDICATION: Gastrointestinal bleeding, melena. TECHNIQUE: Multiplanar CT angiogram examination of the abdomen and pelvis was performed after the administration of 100 mL Omnipaque 350 intravenous contrast, gastrointestinal bleed protocol. COMPARISON: None. FINDINGS: Lower chest: No focal consolidation. Cardiomegaly. Partially visualized pacemaker leads. Small hiatal hernia with evidence of reflux. No pleural effusions or pneumothorax. Segmental dependent atelectasis. Liver: Subcentimeter hepatic hypodensities, too small to characterize. Gallbladder: Cholecystectomy. Biliary: Unremarkable. Pancreas: Within normal limits. Spleen: Unremarkable. Adrenal glands: Unremarkable. Renal/ureters/bladder: Normal in size and symmetrically enhancing. No obstructive uropathy. No hydronephrosis or obstructive urinary calculi. No suspicious renal masses. The ureters appear unremarkable. Small bladder diverticulum, likely due to chronic outlet obstruction. Pelvis: Mild prostatomegaly. Gastrointestinal: Postsurgical changes from prior small bowel resection. No bowel wall thickening or bowel obstruction. Normal appendix. Colonic diverticulosis. Mild colonic stool burden. Vasculature: No extravasation of contrast suggestive of active arterial hemorrhage. No pooling of contrast material on the delayed venous phase images. No aortic aneurysm. The portal vein remains patent. Extensive atherosclerotic calcifications. Lymph nodes: No pathologic lymphadenopathy by size criteria. Peritoneum: No free fluid or pneumoperitoneum. No drainable fluid collections. Abdominal wall/soft tissues: Unremarkable. Bones: No acute osseous abnormalities. Status post bilateral parasymphyseal and left femoral neck ORIF. Degenerative changes of the visualized thoracolumbar spine. IMPRESSION: 1. There is no active extravasation or delayed venous pooling of contrast material to suggest active gastrointestinal hemorrhage. 2. Colonic diverticulosis without CT evidence of acute diverticulitis. 3. Otherwise, no acute abdominopelvic findings. 4. Prostatomegaly. Please note that all CT scans at this facility use dose modulation, iterative reconstruction, and/or weight-based dosing when appropriate to reduce radiation dose to as low as reasonably achievable. Dictated by Michi Bey MD @ 11/06/2024 3:09:40 PM
--- OUTSIDE RECORDS SUMMARY | 2024-11-06 13:00 | XMS_ITS | Clinical Summary ---
Author Organization [employer] [facility] Address [address] [place] [address] Care Team Providers Care Foot Doctor Name Role Phone Jennifer Carter Primary Care Provider [phone] Allergies Active Allergy Reactions Criticality Noted Date Comments Tree Nut Angioedema 07/14/2012 Granby nuts Medications omeprazole (PRILOSEC) 40 mg Delayed-Release capsuleIndicatio ns:Chronic GERD Take 1 Capsule (40 mg) by mouth once daily before a meal. 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 03/13/2023 Anxiety 03/13/2023 CARROLL (obstructive sleep apnea) 02/18/2023 Chronic GERD 02/09/2023 BPH without urinary obstruction 02/09/2023 Iron deficiency anemia 02/09/2023 B12 deficiency 02/09/2023 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 Ventral hernia, unspecified, without mention of obstruction or gangrene 05/07/2011 Encounters Date Type Department Care Team Description 11/06/[address] [address] Jennifer Carter PA Questions; Error-please disregard (error) 11/04/2024 Nurse Triage [address] [address] Anthony Maldonado MD Abnormal Lab Results 11/03/2024 3:35 PM CDT Office Visit [address] [address] Anthony Maldonado MD Rectal Problem (Bleeding rectum since Saturday) 11/03/2024 Travel 10/05/2024 Procedure Only [facility] [address] [place] [address] Device Check (REMOTE [employer] DUAL CHAMBE... 09/08/2024 E-Visit [facility] [address] [place] [address] Jennifer Carter PA Linzess 09/07/[address] [address] Jennifer Carter PA Message (Call the patient ) 09/02/2024 11:30 AM HEARING HEALTHCARE PRACTITIONER Office Visit [address] [address] Precious Richey MD Consult (Ventral hernia referred by Dr. Phelps) 09/01/2024 Travel 08/31/2024 11:05 AM HEARING HEALTHCARE PRACTITIONER Office Visit [facility] [address] [place] [address] Fabiana Phelps, DO Hernia (lower right pubic /couple weeks/) 08/31/2024 Travel 08/29/2024 Travel 08/27/2024 Nurse Triage [facility] [address] [place] [address] Jennifer Carter PA Possible Hernia 08/26/2024 Nurse Triage [facility] [address] [place] [address] Jennifer Carter PA Questions (triage) 08/19/2024 Medical Messaging [facility] [address] [place] [address] Jennifer Carter PA outpatient PT referral from Last 3 Months Immunizations Immunization Administration Dates Next Due COVID-19 VACCINE SPIKEVAX (M ODERNA 50MCG/0.5ML) 12YO+ PFS 10/31/2023,05/24/2023 COVID-19 vaccine ([employer]-Bio NTech 30mcg/0.3mL) 12YO+ BIVALENT PF, MDV 02/07/2023 [...] on file Legal Sex Male 8:11 AM HEARING HEALTHCARE PRACTITIONER Gender Identity Not on file Sexual Orientation Not on file Obstetrics History Last Filed Vital Signs Vital Sign Reading Time Taken Comments Blood Pressure 119/68 11/03/2024 3:45 PM CDT Pulse 63 11/03/2024 3:45 PM CDT Temperature 36.5 C (97.7 F) 11/03/2024 3:45 PM CDT Respiratory Rate 16 08/02/2023 10:24 AM HEARING HEALTHCARE PRACTITIONER Oxygen Saturation 97% 11/03/2024 3:45 PM CDT Inhaled Oxygen Concentration - - Weight 75.9 kg (167 lb 6.4 oz) 11/03/2024 3:45 P M CDT Height 179.3 cm (5' 10.6) 03/02/2024 2:03 PM CD T Body Mass Index 23.61 03/02/2024 2:03 PM CDT Plan of Treatment Upcoming Encounters Date Type Department Care Team (Late st Contact Info) Description 02/12/2025 Procedure Only [facility] [address] [place] [address] Health Maintenance Due Date Last [...] history exists Medical Devices Implanted Type Area Insurance Licensing Supervisor Device Identifier Shelf Expiration Date Model / Serial / Lot Mesh Ventralex St Lg Circ 8.0cm - [id number] Implanted:Qty: 1 on 07/14/2012 at [facility] N/A: Abdomen DAVOL 04/05/2014 [id number] / / [id number] Procedures Procedure Name Priority Date/Time Associated Diagnosis Comments CBC WITH AUTO DIFFERENTIAL Routine 11/03/2024 4:43 PM CDT Rectal bleeding from Last 3 Months Results * (ABNORMAL) CBC AND DIFFERENTIAL (11/03/2024 4:43 PM CDT) [facility] WHITE BLOOD CELL COUNT 5.0 3.8 - 10.8 Thousand/u L [facility] RED BLOOD CELL COUNT 3.18(L) 4.20 - 5.80 Million/uL [facility] HEMOGLOBIN 10.4(L) 13.2 - 17.1 g/dL [facility] HEMATOCRIT 31.3(L) 38.5 - 50.0 % [facility] MCV 98.4 80.0 - 100.0 fL [facility] MCH 32.7 27.0 - 33.0 pg [facility] [...] MD HEMATOLOGY Final Resu lt [facility] [address] [place] [address], [place] [phone] [facility] [address] [place] [address] from Last 3 Months Insurance MEDICARE PART A HB ONLY MEDICARE PART B HB ONLY [place]UE [place] BLUE MR PB ONLY [place] BLUE HB ONLY MEDICARE PART A HB ONLY MEDICARE PART B HB ONLY [place] BLUE HB ONLY [place] BLUE MR PB ONLY Advance Directives * [...] Code Status Discussion: Reviewed Preferences Care Teams Foot Doctor Relationship Specialty Start Date End Date Jennifer Carter PA [address] [place] [address] PCP - General Physician Electric Lift Truck Driver 02/09/23
--- OUTSIDE RECORDS SUMMARY | 2024-11-06 13:01 | XMS_ITS | Clinical Summary ---
Author Organization [facility] Address [address] [place] [address] Care Team Providers Care Geological Engineering Teacher Name Role Phone Unavailable Primary Care Provider Unavailabl e Source Comments Patient records contain information from all sites at [facility]. For routine questions regarding patient records, call [phone] during business hours, M-F 8:00 AM - 5:00 PM Central Time. Record requests for emergency care only can be directed to [phone] at any time.[facility] Social History Tobacco Use Types Packs/Day Years Used Date Smoking Tobacco: Never Nutrition Answer Date Recorded Nutrition: EVOO Fat Source 13 01/11 Nutrition: Servings of Fruits/Vegetables per Day Not on file 01/11/2019 Dental Answer Date Recorded Dental: Regular Dentist 13 01/12/20 19 Sex and Gender Information Value Date Recorded Sex Assigned at Not on file Legal Sex Male 7:35 AM REFERRAL AND INFORMATION AIDE Gender Identity Male 09/06/2020 10:37 AM REFERRAL AND INFORMATION AIDE Sexual Orientation Straight 09/06/2020 10 :37 AM REFERRAL AND INFORMATION AIDE Last Filed Vital Signs Vital Sign Reading [...]
--- OUTSIDE RECORDS SUMMARY | 2024-11-06 13:01 | XMS_ITS | Clinical Summary ---
Author Organization [facility] Address [address] [place] [address] Care Team Providers Care Med Peds Name Role Phone Jennifer Carter PA-C Primary Care Provider [phone] Allergies Active Allergy Reactions Criticality Noted Date Comments Nuts Angioedema 07/14/2012 Elk nuts Medications aspirin (ASA) 81 MG chewable [...] on file Legal Sex Male 3:03 AM FRONT END ASSISTANT Gender Identity Not on file Sexual [...] patient's age to complete this topic Insurance [facility] BLUE MEDICARE [facility] [place] BLUE MEDICARE Care Teams Med Peds Relationship Specialty Start Date End Date Jennifer Carter PA-C [address] [place] [address] PCP - General 01/20/24
--- OUTSIDE RECORDS SUMMARY | 2024-11-06 13:01 | XMS_ITS | Data Portability ---
Author Organization [place] [facility] Address [address] [place] [address] Care Team Providers Care Adult And Pediatric Neurologist Name Role Phone ANJU BHAKTA Primary Care [...] culture appropriate abx if indicated - [facility] Not available 05/23/2022 18:41:23 08/16/2022 08/16/2022 87M [...] to Dr. Bhakta's office per patient request. [email or web address] Not available 08/16/2022 13:23:50 Plan of Treatment Reminders Order Date Submit Date Provider Last Modified By Organization Details Last Modified Time Details Appointments None recorded. Lab urinalysis, dipstick 2022 023 [email or web address] [facility], [address], [place], [address], 3 11:28:48 urinalysis, dipstick 2021 022 [email or web address] [facility], [address], [place], [address], 2 11:43:57 culture, urine 2021 [facility], [address], [address], [address], 10:27:56 Referral None recorded. Procedures None recorded. Surgeries None recorded. Imaging None recorded. Medication Orders finasteride 5 mg tablet 2021 022 [facility] [place], [address], 12:24:56 Patient TargetsNo targets recorded. Patient InstructionsNo instructions recorded. Reason for Referral None Reported. Results Created Date Observation Date Name Description Value Unit Range Abnormal Flag Note LastModifiedBy Organization Detail LastModifiedTime 05/16/20 22 05/16/2022 URINE CULTU RE final report MICROB IOLOGY RESULT S SOURC E Void KNOWN ALLER GIES none TREAT MENT none MEDIA PLATE D AT: Media plate d on 05/16 @ 3:55 PM COLON Y COUNT >100, 000 cfu/m l RESUL T Gemel la speci es (Isol ate 1)-Varma scept ibili ty Testi ng not perfo rmed, usual ly Susce ptibl e To Penic illin This lab resul t is being provi ded to you and your provi iona at the same [facility] with the Cent[facility] Cures Act. Your provi iona may not have had time to revie w and make recom menda tions based on the resul t. Pleas e allow up to one week for provi iona revie w. Not Available [facility] [address], [place], [address], 05/20/2022 10:27:56 05/16/2005/16/2022 urina lysis , dipst ick pH-Status 7.0 Not Available [facility] [address], [place], [address], 05/16/2022 11:43:07 05/16/2005/16/2022 urina lysis , dipst ick Blood-Status Trace Not Available [facility] [address], [place], [address], 05/16/2022 11:43:07 05/16/20 22 05/16/2022 urina lysis , dipst ick Leuko-Status Modera te Not Available [facility] [address], [place], [address], 05/16/2022 11:43:07 08/16/19 23 08/16/2022 urina lysis , dipst ick Color-Status Yellow Not Available [facility] [address], [place], [address], 08/16/2022 11:20:25 08/16/19 23 08/16/2022 urina lysis , dipst ick Clarity-Stat us Clear Not Available [facility] [address], [place], [address], 08/16/2022 11:20:25 08/16/19 23 08/16/2022 urina lysis , dipst ick Glucose-Stat us Negati ve Not Available [facility] [address], [place], [address], 08/16/2022 11:20:25 08/16/19 23 08/16/2022 urina lysis , dipst ick Bilirubin-St atus Negati ve Not Available [facility] [address], [place], [address], 08/16/2022 11:20:25 08/16/19 23 08/16/2022 urina lysis , dipst ick Ketones-Stat us Negati ve Not Available [facility] [address], [place], [address], 08/16/2022 11:20:25 08/16/19 23 08/16/2022 urina lysis , dipst ick Sp [place]-Stat us 1.015 Not Available [facility] [address], [place], [address], 08/16/2022 11:20:25 08/16/19 23 08/16/2022 urina lysis , dipst ick pH-Status 6.0 Not Available [facility] [address], [place], [address], 08/16/2022 11:20:25 08/16/19 23 08/16/2022 urina lysis , dipst ick Urobilinogen -Status 1.0 Not Available [facility] [address], [place], [address], 08/16/2022 11:20:25 08/16/19 23 08/16/2022 urina lysis , dipst ick Nitrates-Sta tus negati ve Not Available [facility] [address], [place], [address], 08/16/2022 11:20:25 08/16/19 23 08/16/2022 urina lysis , dipst ick Blood-Status Negati ve Not Available [facility] [address], [place], [address], 08/16/2022 11:20:25 08/16/19 23 08/16/2022 urina lysis , dipst ick Leuko-Status Negati ve Not Available [facility] [address], [place], [address], 08/16/2022 11:20:25 08/16/19 23 08/16/2022 urina lysis , dipst ick Specimen Type Voided Not Available [facility] [address], [place], [address], 08/16/2022 11:20:25 05/16/20 22 05/15/2022 bladd er scan (PROC ) No observ ation record ed. BARCODE Not Available 2021 18:13:10 08/20/19 23 08/16/2022 bladd er scan (PROC ) No observ ation record ed. BARCODE Not Available 2022 18:02:59 Result Notes None recorded. Procedures Surgical History Date Name Laterality Status Provider Name and Address Organization Details Recorded Time 3 Bladder Scan completed Brianda Lu PA-C [address], [place], [address], [facility] 08/16/2022 11:32:29 2 Bladder Scan completed Brianda Lu PA-C [address], [place], [address], [facility] 05/16/2022 12:16:05 procedure on tendon completed [facility] 05/16/2022 11:42:16 pelvis repair completed [facility] 05/16/2022 11:42:26 Hernia Repair completed [facility] 05/16/2022 11:42:31 Cataract Surgery completed [facility] 05/16/2022 11:42:37 Imaging Results Imaging Date [...] Updated DateTime 05/16/2022 182.88 cm 25.2 kg/m2 75959.18 g [facility] 05/16/[facility]22 11:40:48 Date Recorded Body height Body mass index (BMI) Body weight Provider Name and Address Organization Details Last Updated DateTime 08/16/2022 182.88 cm 25.2 kg/m2 48260.18 g Mindi Wright [facility] 08/16/2022 11:19:56 Social History Question Answer Notes LastModified by Organizat ion Details LastModified Time Tobacco Smoking Status Former Smoker Radha Salterud [facility] 05/16/2022 11:41:56 What Is Your Level Of [...] History Nothing Reported. Medical History Condition Response Other N High Blood Pressure N Kidney Stones N Lung Disease N Depression N GERD/Acid Reflux N Sexually Transmitted Infection N Cancer N High Cholesterol N Diabetes Y Bleeding Disorder N Heart Disease N Immunizations Vaccine Type Date Status Note Provider Nam e and Address Organization Details Recorded Time zoster recombinant 0 completed Janki Uri angelo [facility] 07/25/2023 13:52:24 zoster recombinant 8 completed Jakni Uri angelo [facility] 07/25/2023 13:52:24 [facility]oster [facility] 13:52:24 Influenza, high-dose, quadrivalent, PF 1 completed Janki angelo, [facility] 07/25/2023 13:52:24 COVID-19, mRNA, LNP-S, PF, 30 mcg/0.3 mL dose 1 completed Janki Grewal null, [facility] 07/25/2023 13:52:24 COVID-19, mRNA, LNP-S, PF, 30 mcg/0.3 mL dose 1 completed Janki Teska null, [facility] 07/25/2023 13:52:24 COVID-19, mRNA, LNP-S, PF, 30 mcg/0.3 mL dose 2 completed Janki angelo, [facility] 07/25/2023 13:52:24 COVID-19, mRNA, LNP-S, PF, 30 mcg/0.3 mL dose 1 completed Janki angelo, [facility] 07/25/2023 13:52:24 COVID-19, mRNA, LNP-S, bivalent, PF, 30 mcg/0.3 mL dose 2 completed Janki angelo, [facility] 07/25/2023 13:52:24 pneumococcal polysaccharide PPV23 1 completed Janki angelo, [facility] 07/25/2023 13:52:24 pneumococcal polysaccharide PPV23 2 completed Janki angelo, [facility] 07/25/2023 13:52:24 influenza, unspecified formulation 9 completed Janki angelo, [facility] 07/25/2023 13:52:24 Tdap 1 completed Janki angelo, [facility] 07/25/2023 13:52:24 Pneumococcal conjugate PCV 13 5 completed Janki angelo, [facility] 07/25/2023 13:52:24 zoster live 2 completed Janki angelo, [facility] 07/25/2023 13:52:24 Influenza, high-dose, trivalent, PF 8 completed Janki Teska null, [facility] 07/25/2023 13:52:24 Influenza, high-dose, trivalent, PF 5 completed Janki Teska null, [facility] 07/25/2023 13:52:24 Influenza, high-dose, trivalent, PF 6 completed Janki Teska null, [facility] 07/25/2023 13:52:24 Influenza, high-dose, trivalent, PF 9 completed Janki Teska null, [facility] 07/25/2023 13:52:24 Influenza, high-dose, trivalent, PF 4 completed Janki Teska null, [facility] 07/25/2023 13:52:24 Influenza, split virus, trivalent, preservative 6 completed Janki Teska null, [facility] 07/25/2023 13:52:24 Influenza, split virus, trivalent, preservative 3 completed Janki Teska null, [facility] 07/25/2023 13:52:24 Influenza, split virus, trivalent, preservative 8 completed Janki Teska null, [facility] 07/25/2023 13:52:24 Influenza, split virus, trivalent, PF 1 completed Jakni Clareka null, [facility] 07/25/2023 13:52:24 Influenza, split virus, trivalent, PF 2 completed Janki Teska null, [facility] 07/25/2023 13:52:24 Influenza, split virus, trivalent, PF 0 completed Janki Teska null, [facility] 07/25/2023 13:52:24 Influenza, adjuvanted, quadrivalent, PF 2 completed Janki Clareka null, [facility] 07/25/2023 13:52:33 Past Encounters Encounter ID Performer Location Encounter Start Date Encounter Closed Date Diagnosis/Indication Diagnosis SNOMED-CT Code Diagnosis ICD10 Code Diagnosis Note [id number] Brianda Lu PA-C [facility] [address] [place] [address] 05/16/2022 11:26:46 05/24/2022 15:25:03 Recurrent urinary tract infection 288446518 N39.0 Lower urin jose tract symptoms due to benign prostatic hypertrophy 9838482149 9101 N40.1 Prostate s pecific antigen above reference range 521983389 R97.20 [id number] Brianda Lu PA-C [facility] [address] [place] [address] 08/16/2022 11:01:37 08/20/2022 07:55:05 Recurrent urinary tract infection 941229065 N39.0 Lower urin jose tract symptoms due to benign prostatic hypertrophy 0646277689 9101 N40.1 Prostate s pecific antigen above reference range 062904857 R97.20 Health Concerns Section Related Observation LastModified by Organization Detai ls LastModified Time None Recorded Concern Status LastModified by Organization Details LastModified Time None Recorded Advance Directives Directive None Recorded Payers Encounter Date Sequence Insurance Name Policy Number Policy Vigil Covered Member ID Vigil Member ID Guarantor Name 05/16/2022 1 [place] [employer] Ming Schafer [id number] Ming Desouza Crosunni 05/16/2022 2 [facility] [id number] Ming Schafer [id number] Ming Schafer 08/16/2022 1 [facility] [employer] [place] MEDICARE COST [id number] Ming Schafer [id number] Ming Schafer Notes Date Note Type Note Provider Name and Address Organization Details Recorded Time 05/16/2022 text/html 86M with urinary urgency and frequency. In early March, [...] Also states he saw a urologist at [facility] many years ago for bladder crystals, but unfortunately these records are not available today. UA today trace blood, mod leuks, 30 proteinPVR today 54 cc PSA Results (reviewed)04/05/22 4.71 Labs: (reviewed)04/08/22 UCx >100k Alpha heme strep05/09/22 UCx >100k mixed amador Imaging:no recent abdominal imaging PMH: BPH, GERD, CARROLL, chronic anemiaPSH: ventral hernia repair, small bowel resection Soc:Occ:Tobacco: former smoker (socially in college)EtOH: FHx:no FHx of prostate cancer Brianda Lu PA-C [address] [place] [address],[address], [address], [facility] 05/23/2022 18:41:35 08/16/2022 text/html 87M with urinary urgency and frequency. 05/16/22:In early March, started to notice urinary urgency [...] Also states he saw a urologist at [facility] many years ago for bladder crystals, but unfortunately these records are not available today. 08/16/22:Here for follow up and PSA recheck. Doing well. Continues on 0.8 mg daily tamsulosin and 5 mg daily finasteride. Nocturia x1-2 usually. No further UTIs. Denies dysuria, frequency, gross hematuria, fever, or chills. PVR today 13 ccUA today trace leuks, o/w neg PSA Results (reviewed)04/05/22 4.7108/16/22 2.9 (on finasteride) Imagingno recent abdominal imaging PMH: BPH, GERD, CARROLL, chronic anemiaPSH: ventral hernia repair, small bowel resection Soc:Occ:Tobacco: former smoker (socially in college)EtOH:FHx:no FHx of prostate cancer Brianda Lu PA-C [address] [place] [address],[address], [place], [address], [facility] 08/16/2022 13:24:05
[2024-11-06] MEDS: 0.9 % SODIUM CHLORIDE 1000 ml 1,000 ML 75 ML IV (13:16)
[2024-11-06] MEDS: PANTOPRAZOLE SODIUM 40 MG INJ IVP (13:16)
[2024-11-06 13:22] LABS: Basophils Percent Auto 0.3 % (0.0-3.0); Eosinophils Percent Auto 1.6 % (0.0-7.0); Hematocrit 24.2 % (37.0-53.0); Immature Granulocytes Pct Auto 0.3 %; Lymphocytes Percent Auto 22.7 % (20-44); Mean Corpuscular HGB Conc 32 gm/dL (32-36); Mean Corpuscular Hemoglobin 33 pg (26-34); Mean Corpuscular Volume 102 fL (80-100); Monocytes Percent Auto 16.4 % (0.0-11.0); Neutrophils Percent Auto 58.7 % (42.0-72.0); Platelet Count* 102 K/uL (140-440); RDW Coefficient of Variation % 13.8 % (11.5-15.5); Red Blood Count 2.38 m/uL (4.30-5.90); White Blood Count* 3.83 K/uL (4.50-11.00)
[2024-11-06 13:22] LABS: Fecal Occult Blood* Positive (Negative)
[2024-11-06 13:29] LABS: Hemoglobin* 7.8 gm/dL (13.5-17.5); Slide Review Reflex No
[2024-11-06 13:43] LABS: Albumin* 3.4 g/dL (3.3-5.0); Chloride* 107 mmol/L (96-114)
[2024-11-06 13:44] LABS: Potassium* 3.7 mmol/L (3.6-5.1); Sodium* 139 mmol/L (135-149)
[2024-11-06 13:46] LABS: Alanine Aminotransferase* 34 U/L (4-50); Aspartate Amino Transferase* 43 U/L (12-35); Blood Urea Nitrogen* 37 mg/dL (7-30); Creatinine* 0.8 mg/dL (0.5-1.5); Est. Creatinine Clearance* 53.74; Estimated Glomerular Filt Rate 86 ml/min
[2024-11-06 13:47] LABS: Alkaline Phosphatase* 71 U/L (40-150); Anion Gap 8 mEq/L (7-15); Bilirubin Total* 0.6 mg/dL (0.1-1.5); Calcium* 8.7 mg/dL (8.4-10.6); Carbon Dioxide* 24 mmol/L (20-32); Glucose* 112 mg/dL (60-115); Total Protein* 5.3 g/dL (6.0-8.3)
[2024-11-06 13:48] LABS: INR 1.28 (0.91-1.10); Partial Thromboplastin Time* 31 Seconds (23-33); Prothrombin Time 16.9 Seconds
[2024-11-06 13:50] LABS: C Reactive Protein* 0.8 mg/dL (0.5-1.0)
[2024-11-06 14:26] LABS: Troponin, Point-of-Care* 0.01 ng/ml (0.01-0.04)
--- NOTE | 2024-11-06 19:14 | P.IMHP_ITS ---
Assessment and Plan Assessment and plan (1) Acute GI bleeding: Problem comment: Patient appears to have acute GI bleed with acute blood loss anemia. Most likely source is lower GI bleeding based on patient's history and description. Patient is admitted the hospital for monitoring of bleeding and serial hemoglobins and vital sign monitoring. Possible colonoscopy/EGD depending on clinical course. Status: Acute (2) Anemia: Problem comment: Acute on chronic anemia possibly due to GI bleeding. Already on oral therapy. Check iron levels. Transfuse as needed. Status: Acute Plan 89-year-old male with acute GI bleeding leading to blood loss anemia. Suspect this is lower GI bleeding. Admit to the hospital for monitoring for bleeding, monitor hemoglobins and vital signs. Anticipate 2-3 days in the hospital. Possible colonoscopy/EGD depending on clinical course. Total Time Spent Total Time Spent: Total time spent today is 80 minutes in coordination of care, review of outside records, discussing with patient and family ongoing evaluation management of GI bleeding. Hospitalist- H&P: HPI History of Present Illness Date Seen: 11/06/24 Chief complaint: Rectal bleed Narrative: Ming Schafer is a 89 year old male with longstanding history of previous lower GI bleeding thought secondary to diverticulosis presents with a several- day history of maroon-colored stools this week. He reports having 2 or 3 stools appearing like raspberry jam every day. Said no abdominal pain. No fever. No vomiting. He has been eating normally. He says this is reminiscent of previous episodes of lower GI bleeding. Previous colonoscopies have not identified obvious site of bleeding though he has had diverticuli identified with colonoscopy, most recently 03/06/2023. At that time he also had EGD which was normal. He takes aspirin 81 mg daily. No anticoagulation. He does carry a diagnosis of iron deficiency anemia and is on iron supplement as well as B12 deficiency on B12 supplement. 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 (ICD-10) CARROLL (obstructive sleep apnea) ?G47.33 - Obstructive sleep apnea (adult) (pediatric) (ICD-10) Atypical nevus ?D22.9 - Melanocytic nevi, unspecified (ICD-10) Ascending aorta dilation ?I77.810 - Thoracic aortic ectasia (ICD-10) Chronic GI bleeding ?K92.2 - Gastrointestinal hemorrhage, unspecified (ICD-10) Iron deficiency anemia (03/24/07) ?D50.9 - Iron deficiency anemia, unspecified (ICD-10) Anxiety ?F41.9 - Anxiety disorder, unspecified (ICD-10) Clavus ?L84 - Corns and callosities (ICD-10) Hyperlipidemia ?E78.5 - Hyperlipidemia, unspecified (ICD-10) Fracture of metacarpal bone ?S62.309A - Unspecified fracture of unspecified metacarpal bone, initial encounter for closed fracture (ICD-10) Closed dislocation of fifth metacarpal bone of right hand ?S63.266A - Dislocation of metacarpophalangeal joint of right little finger, initial encounter (ICD-10) Health care directive on file ?Z78.9 - Other specified health status (ICD-10) Hoarse voice quality ?R49.0 - Dysphonia (ICD-10) BPH (benign prostatic hyperplasia) ?N40.0 - Benign prostatic hyperplasia without lower urinary tract symptoms (ICD-10) Tremor ?R25.1 - Tremor, unspecified (ICD-10) Surgical History History of phacoemulsification of cataract with intraocular lens implantation ?Z98.49 - Cataract extraction status, unspecified eye (ICD-10) ?Z96.1 - Presence of intraocular lens (ICD-10) History of excision of lesion ?Z98.890 - Other specified postprocedural states (ICD-10) ?Z87.2 - Personal history of diseases of the skin and subcutaneous tissue (ICD-10) History of YAG laser capsulotomy of lens of right eye ?Z98.41 - Cataract extraction status, right eye (ICD-10) History of YAG laser capsulotomy of lens of left eye ?Z98.42 - Cataract extraction status, left eye (ICD-10) S/P ORIF (open reduction internal fixation) fracture (03/29/24) ?Z98.890 - Other specified postprocedural states (ICD-10) ?Z87.81 - Personal history of (healed) traumatic fracture (ICD-10) H/O hernia repair ?Z98.890 - Other specified postprocedural states (ICD-10) ?Z87.19 - Personal history of other diseases of the digestive system (ICD-10) S/P small bowel resection ?Z90.49 - Acquired absence of other specified parts of digestive tract (ICD- 10) Social History Narrative: 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 Lives with in [place] (she has been undergoing health issues, has MCI). Son Taurus ([place] ) and daughter Nury ([facility]) would share medical decision making capabilities if needed. He requests DNR/DNI status. Smoked socially in college, previous social ETOH use, none now. Health care directive on file- Health care directive dated 04/13/20 sent for scanning on 04/22/20. What is your current living situation?: I presently have a place to live Problems where you live: no known problems Problems where you live details: N/A In the past 12 months, utilities in danger of being shut off: no In past 12 months, lack of transportation kept you from medical appts, meetings, work, or getting things needed for daily living: no In the past 12 mos, have been you worried that your food would run out before you had money to buy more?: never true In the past 12 mos, the food you bought just didn't last and you didn't have money to buy more?: never true Highest level of school completed/degree received: Doctoral degree Smoking Status: Never smoker Do you use any of these nicotine containing products: None Second hand tobacco smoke exposure: No How often do you have a drink containing alcohol: monthly or less How many standard drinks containing alcohol do you have on a typical day: 1 or 2 How often do you have six or more drinks on one occasion: Never AUDIT-C Alcohol total score: 1 Non-prescribed substance use: denies use Caffeine: Yes (1 cup/day) How often does anyone, including family, friends and others, physically hurt you : never How often does anyone, including family, friends and others, insult or talk down to you: never How often does anyone, including family, friends and others, threaten you with harm: never How often does anyone, including family, friends and others, scream or curse at you: never Gender Identity: male service: No Meds Home Medications and Allergies Home Medications ?Medication ?Instructions ?Recorded ?Confirmed ?Type finasteride 5 mg tablet 5 mg PO DAILY 08/27/22 11/06/24 History omeprazole 40 mg capsule,delayed 40 mg PO DAILY 03/06/23 11/06/24 History release tamsulosin 0.4 mg capsule 0.4 mg PO DAILY bph 03/06/23 11/06/24 History aspirin 81 mg tablet,delayed 81 mg PO DAILY 09/19/23 11/06/24 History release cyanocobalamin (vitamin B-12) 1,000 mcg PO 3XW 05/05/24 11/06/24 History 1,000 mcg capsule ferrous sulfate 325 mg (65 mg 325 mg PO DAILY 05/05/24 11/06/24 History iron) tablet,delayed release propranolol 20 mg tablet 20 mg PO BID 11/06/24 11/06/24 History sennosides 8.6 mg-docusate sodium 1 tab-cap PO DAILY PRN constipation 11/06/24 11/06/24 History 50 mg tablet (Senna-S) Allergies Allergy/AdvReac Type Severity Reaction Status Date / Time pine nut Allergy Verified 11/06/24 14:11 Exam Narrative: Exam Narrative: He is alert appears in no distress. He gives his own history. Eyes notable for dysconjugate gaze with right lateral view. He reports he has had visual loss in his right eye lateral russell since his stroke. No facial asymmetry. Oropharynx is normal. Neck is supple without mass or adenopathy. Respirations are clear to auscultation. Cardiovascular: S1, S2, regular rate and rhythm. Abdomen: Bowel sounds are present. Abdomen is soft without mass. He has mild low abdominal tenderness. Denies abdominal pain without palpation. External genitalia normal. Lower extremities normal. No edema. Intact pulses. Intact strength in all 4 extremities. Const: Vital Signs, click to edit/add: Vital Signs - 24 hr 11/06/24 12:29 11/06/24 13:23 11/06/24 13:24 Temperature 98.1 F Pulse Rate 69 67 Pulse Rate [Left R adial] Pulse Rate [Pulse Oximeter] 68 Respiratory Rate 20 16 Blood Pressure 113/65 Blood Pressure [Ri ght Arm] Blood Pressure [Ri ght Upper Arm] 129/59 L Pulse Oximetry 98 95 97 Oxygen Delivery Me thod Room Air Room Air 11/06/24 13:30 11/06/24 13:45 11/06/24 13:55 Temperature Pulse Rate 65 66 Pulse Rate [Left R adial] Pulse Rate [Pulse Oximeter] 97 Respiratory Rate 21 8 L 16 Blood Pressure Blood Pressure [Ri ght Arm] Blood Pressure [Ri ght Upper Arm] 123/90 H Pulse Oximetry 95 96 98 Oxygen Delivery Me thod 11/06/24 14:00 11/06/24 14:01 11/06/24 14:31 Temperature Pulse Rate 65 64 66 Pulse Rate [Left R adial] Pulse Rate [Pulse Oximeter] Respiratory Rate 18 18 Blood Pressure 115/57 L Blood Pressure [Ri ght Arm] Blood Pressure [Ri ght Upper Arm] Pulse Oximetry 97 96 96 Oxygen Delivery Me thod 11/06/24 14:45 11/06/24 15:00 11/06/24 15:02 Temperature Pulse Rate 64 66 69 Pulse Rate [Left R adial] Pulse Rate [Pulse Oximeter] Respiratory Rate 19 22 15 Blood Pressure 125/69 Blood Pressure [Ri ght Arm] Blood Pressure [Ri ght Upper Arm] Pulse Oximetry 98 94 98 Oxygen Delivery Me thod 11/06/24 15:15 11/06/24 15:30 11/06/24 16:01 Temperature 96.9 F L Pulse Rate 62 64 Pulse Rate [Left R adial] 55 L Pulse Rate [Pulse Oximeter] Respiratory Rate 19 19 16 Blood Pressure Blood Pressure [Ri ght Arm] 123/72 Blood Pressure [Ri ght Upper Arm] Pulse Oximetry 97 97 99 Oxygen Delivery Me thod Room Air Documenting provider has reviewed patient's vital signs: yes Hospitalist - H&P: Result Labs Labs: Short CBC 11/06/24 Range/Units 13:03 WBC 3.83 L (4.50-11.00) K/uL Hgb 7.8 L* (13.5-17.5) gm/dL Hct 24.2 L (37.0-53.0) % Plt Count 102 L (140-440) K/uL BMP 11/06/24 13:03 Sodium 139 Potassium 3.7 Chloride 107 Carbon Dioxide 24 BUN 37 H Creatinine 0.8 Glucose 112 Calcium 8.7 Liver Function 11/06/24 Range/Units 13:03 Total Bilirubin 0.6 (0.1-1.5) mg/dL AST 43 H (12-35) U/L ALT 34 (4-50) U/L Alkaline Phosphatase 71 (40-150) U/L Albumin 3.4 (3.3-5.0) g/dL Imaging CT scan - abdomen: Radiologist's impression: INDICATION: Gastrointestinal bleeding, melena. TECHNIQUE: Multiplanar CT angiogram examination of the abdomen and pelvis was performed after the administration of 100 mL Omnipaque 350 intravenous contrast, gastrointestinal bleed protocol. COMPARISON: None. FINDINGS: Lower chest: No focal consolidation. Cardiomegaly. Partially visualized pacemaker leads. Small hiatal hernia with evidence of reflux. No pleural effusions or pneumothorax. Segmental dependent atelectasis. Liver: Subcentimeter hepatic hypodensities, too small to characterize. Gallbladder: Cholecystectomy. Biliary: Unremarkable. Pancreas: Within normal limits. Spleen: Unremarkable. Adrenal glands: Unremarkable. Renal/ureters/bladder: Normal in size and symmetrically enhancing. No obstructive uropathy. No hydronephrosis or obstructive urinary calculi. No suspicious renal masses. The ureters appear unremarkable. Small bladder diverticulum, likely due to chronic outlet obstruction. Pelvis: Mild prostatomegaly. Gastrointestinal: Postsurgical changes from prior small bowel resection. No bowel wall thickening or bowel obstruction. Normal appendix. Colonic diverticulosis. Mild colonic stool burden. Vasculature: No extravasation of contrast suggestive of active arterial hemorrhage. No pooling of contrast material on the delayed venous phase images. No aortic aneurysm. The portal vein remains patent. Extensive atherosclerotic calcifications. Lymph nodes: No pathologic lymphadenopathy by size criteria. Peritoneum: No free fluid or pneumoperitoneum. No drainable fluid collections. Abdominal wall/soft tissues: Unremarkable. Bones: No acute osseous abnormalities. Status post bilateral parasymphyseal and left femoral neck ORIF. Degenerative changes of the visualized thoracolumbar spine. IMPRESSION: 1. There is no active extravasation or delayed venous pooling of contrast material to suggest active gastrointestinal hemorrhage. 2. Colonic diverticulosis without CT evidence of acute diverticulitis. 3. Otherwise, no acute abdominopelvic findings. 4. Prostatomegaly.
[2024-11-06 19:31] LABS: Hemoglobin* 7.6 gm/dL (13.5-17.5)
[2024-11-06] MEDS: PROPRANOLOL 20 MG TABLET PO (21:02)
[2024-11-06] MEDS: ATORVASTATIN CALCIUM 40 MG TABLET PO (21:02)
[2024-11-06] MEDS: SODIUM CHLORIDE 0.9 % (FLUSH) 10 ML SYRINGE 5 ML IVF (21:02)
[2024-11-06 23:43] LABS: Hemoglobin* 7.7 gm/dL (13.5-17.5)
[2024-11-07 03:00] VITALS: BP 105/50; PULSE 58; RESP 16; TEMP 36.6; O2SAT 95
--- NOTE | 2024-11-07 05:31 | PC.NURSE ---
[id number] Pt rested during shift, slept well between cares/br during night. hgb stable, pt asymptomatic. denies lightheaded/dizziness, sob, chest pain or headache, acknowledges some weakness. tolerating ambulating to BR and back with walker/SBA. Pt had 3 very small black loose stools during shift. Dime sized chronic pressure ulcer to back of L heel, mepilex applied and pt with pillows under calfs to float heel off of mattress, pt stated this has been there for approx 3+ weeks.
[2024-11-07 06:37] LABS: Basophils Percent Auto 0.3 % (0.0-3.0); Eosinophils Percent Auto 2.8 % (0.0-7.0); Hematocrit 23.5 % (37.0-53.0); Immature Granulocytes Pct Auto 1.3 %; Lymphocytes Percent Auto 22.2 % (20-44); Mean Corpuscular HGB Conc 32 gm/dL (32-36); Mean Corpuscular Hemoglobin 33 pg (26-34); Mean Corpuscular Volume 101 fL (80-100); Neutrophils Percent Auto 58.4 % (42.0-72.0); Platelet Count* 103 K/uL (140-440); RDW Coefficient of Variation % 14.3 % (11.5-15.5); Red Blood Count 2.33 m/uL (4.30-5.90)
[2024-11-07 06:43] LABS: Hemoglobin* 7.6 gm/dL (13.5-17.5)
[2024-11-07 06:44] LABS: Slide Review Reflex No
[2024-11-07 06:55] LABS: Iron* 26 ug/dL (49-181)
[2024-11-07 07:06] LABS: Percent Iron Saturation 9 % (20-50); Total Iron Binding Capacity 288 ug/dL (261-462)
[2024-11-07 07:07] VITALS: PULSE 67
[2024-11-07 07:20] VITALS: BP 136/77; PULSE 66; RESP 16; TEMP 36.3; O2SAT 95
[2024-11-07] MEDS: FINASTERIDE 5 MG TABLET PO (08:46)
[2024-11-07] MEDS: TAMSULOSIN HCL 0.4 MG CAPSULE PO (08:46)
[2024-11-07] MEDS: PROPRANOLOL 20 MG TABLET PO ×2 (08:46→22:00)
[2024-11-07] MEDS: SERTRALINE 50 MG TABLET 150 MG PO (08:46)
[2024-11-07] MEDS: SODIUM CHLORIDE 0.9 % (FLUSH) 10 ML SYRINGE 5 ML IVF ×2 (08:47→22:01)
[2024-11-07] MEDS: OMEPRAZOLE 20 MG CAPSULE DR 40 MG PO (08:47)
[2024-11-07 11:36] VITALS: BP 133/66; PULSE 60; RESP 16; TEMP 36.4; O2SAT 96
[2024-11-07 15:00] VITALS: BP 108/57; PULSE 63; PULSE 69; RESP 18; TEMP 36.6; O2SAT 95
--- NOTE | 2024-11-07 18:41 | PM.IMPN1 ---
Assessment and Plan Assessment and plan (1) Acute GI bleeding: Problem comment: Patient appears to have acute GI bleed with acute blood loss anemia. Most likely source is lower GI bleeding based on patient's history and description. Patient is admitted the hospital for monitoring of bleeding and serial hemoglobins and vital sign monitoring. Possible colonoscopy/EGD depending on clinical course. I discussed in detail the risks and benefits of colonoscopy/endoscopy. Bleeding is likely diverticular. Last endoscopy and colonoscopy was March 2023 and unremarkable. He is undecided about whether he would like to proceed at this time. Will continue to monitor in hospital for 1 more day. Decide about endoscopy tomorrow Status: Acute (2) Anemia: Problem comment: Acute on chronic anemia possibly due to GI bleeding. Already on oral iron therapy. Still has iron deficiency. Likely needs IV iron. Transfuse as needed. Status: Acute Plan Continue in-hospital for monitoring of bleeding, vitals, hemoglobin. Further discussion about whether to proceed endoscopy tomorrow depending on clinical course and patient's decision. Total Time Spent Total Time Spent: Total time spent today is 60 minutes in coordination of care and discussing decision making around colonoscopy, endoscopy to evaluate for GI bleeding Subjective Date Seen: 11/07/24 Interval history: Admission HPI: Ming Schafer is a 89 year old male with longstanding history of previous lower GI bleeding thought secondary to diverticulosis presents with a several-day history of maroon-colored stools this week. He reports having 2 or 3 stools appearing like raspberry jam every day. Said no abdominal pain. No fever. No vomiting. He has been eating normally. He says this is reminiscent of previous episodes of lower GI bleeding. Previous colonoscopies have not identified obvious site of bleeding though he has had diverticuli identified with colonoscopy, most recently 03/06/2023. At that time he also had EGD which was normal. He takes aspirin 81 mg daily. No anticoagulation. He does carry a diagnosis of iron deficiency anemia and is on iron supplement as well as B12 deficiency on B12 supplement. Previous history of a stroke, BPH, GERD with Barretts esophagus with dysplasia, complete AV block with a pacemaker, ascending aortic dilation, anxiety Overnight he has continued to have small amounts of bright red blood per rectum, primarily just noting a little bit of blood on tissue paper. Not really having significant bloody stools. Hemoglobin has been stable. He has no other concerns today. Exam Narrative: Exam Narrative: He is alert and appears in no distress. Respirations are clear to auscultation. Cardiovascular: S1, S2, regular rate and rhythm. Abdomen: Bowel sounds active. Abdomen is soft without tenderness or mass. Const: Vital Signs, click to edit/add: Vital Signs - 24 hr 11/06/24 19:00 11/06/24 19:12 11/06/24 23:00 Temperature 97.7 F 97.9 F Pulse Rate 63 Pulse Rate [Left R adial] 65 Pulse Rate [Pulse Oximeter] 66 Respiratory Rate 16 16 Blood Pressure [Ri ght Arm] 138/79 111/51 L Pulse Oximetry 97 95 Oxygen Delivery Me thod Room Air Room Air 11/06/24 23:00 11/07/24 03:00 11/07/24 07:07 Temperature 97.9 F Pulse Rate 72 67 Pulse Rate [Left R adial] Pulse Rate [Pulse Oximeter] 58 L Respiratory Rate 16 Blood Pressure [Ri ght Arm] 105/50 L Pulse Oximetry 95 Oxygen Delivery Me thod Room Air 11/07/24 07:20 11/07/24 11:36 11/07/24 15:00 Temperature 97.4 F L 97.6 F 97.8 F Pulse Rate Pulse Rate [Left R adial] Pulse Rate [Pulse Oximeter] 66 60 63 Respiratory Rate 16 16 18 Blood Pressure [Ri ght Arm] 136/77 133/66 108/57 L Pulse Oximetry 95 96 95 Oxygen Delivery Me thod Room Air Room Air Room Air 11/07/24 15:00 11/07/24 15:00 Temperature Pulse Rate 69 Pulse Rate [Left R adial] Pulse Rate [Pulse Oximeter] 63 Respiratory Rate 18 Blood Pressure [Ri ght Arm] Pulse Oximetry Oxygen Delivery Me thod Documenting provider has reviewed patient's vital signs: yes Labs Labs: Laboratory Results - last 24 hr 11/06/24 11/06/24 11/07/24 19:20 23:36 06:10 WBC 3.20 L RBC 2.33 L Hgb 7.6 L* 7.7 L* 7.6 L* Hct 23.5 L MCV 101 H MCH 33 MCHC 32 RDW Coeff of Casie 14.3 Plt Count 103 L Neut % (Auto) 58.4 Lymph % (Auto) 22.2 [place] % (Auto) 15.0 H Eos % (Auto) 2.8 Baso % (Auto) 0.3 Neut # (Auto) 1.90 Lymph # (Auto) 0.70 L [place] # (Auto) 0.50 Eos # (Auto) 0.10 Baso # (Auto) 0.00 Abs Immat Gran (auto) 0.00 Imm/Tot Granulo (auto) 1.3 Iron 26 L TIBC 288 % Saturation 9 L
[2024-11-07 21:56] VITALS: BP 108/55; PULSE 62; RESP 16; TEMP 36.6; O2SAT 94
[2024-11-07] MEDS: ATORVASTATIN CALCIUM 40 MG TABLET PO (21:59)
[2024-11-07] MEDS: polyethylene glycoL 3350 17 GM PACK PO (22:00)
[2024-11-07] MEDS: LATANOPROST 0.005% OPHTH 1 DROP EYE-BOTH (22:03)
[2024-11-08 02:11] VITALS: BP 135/65; PULSE 69; PULSE 85; RESP 16; TEMP 36.3; O2SAT 96
[2024-11-08 06:00] VITALS: PULSE 66; RESP 16; TEMP 36.9; O2SAT 96
--- NOTE | 2024-11-08 06:06 | PC.NURSE ---
Pt slept well overnight. Up x2 for the bathroom. ! large loose stool and 1 smear after receiving Miralax at bedtime. VSS
[2024-11-08 07:00] VITALS: BP 136/67; PULSE 61; PULSE 64; RESP 18; TEMP 36.7; O2SAT 94
[2024-11-08 07:06] LABS: Basophils Percent Auto 0.7 % (0.0-3.0); Eosinophils Percent Auto 3.2 % (0.0-7.0); Hematocrit 23.8 % (37.0-53.0); Immature Granulocytes Pct Auto 0.2 %; Lymphocytes Percent Auto 20.6 % (20-44); Mean Corpuscular HGB Conc 33 gm/dL (32-36); Mean Corpuscular Hemoglobin 34 pg (26-34); Mean Corpuscular Volume 102 fL (80-100); Neutrophils Percent Auto 63.3 % (42.0-72.0); Platelet Count* 121 K/uL (140-440); RDW Coefficient of Variation % 14.1 % (11.5-15.5); Red Blood Count 2.33 m/uL (4.30-5.90); White Blood Count* 4.41 K/uL (4.50-11.00)
[2024-11-08 07:31] LABS: Hemoglobin* 7.8 gm/dL (13.5-17.5); Slide Review Reflex No
[2024-11-08] MEDS: polyethylene glycoL 3350 17 GM PACK PO (09:28)
[2024-11-08] MEDS: FINASTERIDE 5 MG TABLET PO (09:28)
[2024-11-08] MEDS: TAMSULOSIN HCL 0.4 MG CAPSULE PO (09:28)
[2024-11-08] MEDS: SERTRALINE 50 MG TABLET 150 MG PO (09:28)
[2024-11-08] MEDS: PROPRANOLOL 20 MG TABLET PO (09:28)
[2024-11-08] MEDS: OMEPRAZOLE 20 MG CAPSULE DR 40 MG PO (09:28)
[2024-11-08] MEDS: SODIUM CHLORIDE 0.9 % (FLUSH) 10 ML SYRINGE 5 ML IVF (09:29)
[2024-11-08 11:00] VITALS: BP 130/65; PULSE 70; RESP 18; TEMP 36.3; O2SAT 96
--- NOTE | 2024-11-08 12:23 | P.DS_ITS ---
DS: Providers Provider Date Seen: 11/08/24 Date of admission: 11/06/24 19:08 Primary care physician: Jennifer Carter PA-C Admitting Clinician: Jose Francisco Coley MD Attending Physician on discharge: Jose Francisco Coley MD Date of Discharge: 11/08/24 DS: Diagnosis Discharge Diagnosis (1) Acute GI bleeding: Status: Acute Problem details: In the past a patient has had no further episodes of bloody stools or blood on the tissue after a bowel movement. Hemoglobin has been stable for the last day and a half. Patient appears to have acute GI bleed with acute blood loss anemia. Most likely source is lower GI bleeding based on patient's history and description. Patient is admitted the hospital for monitoring of bleeding and serial hemoglobins and vital sign monitoring. I offered colonoscopy and EGD to the patient to be done tomorrow. He declines. I discussed in detail the risks and benefits of colonoscopy/endoscopy. Bleeding is likely diverticular. Low probability that endoscopy would substantially roll changer. Last endoscopy and colonoscopy was March 2023 and unremarkable. He will follow-up with primary care in the next week to decide if any further evaluation beyond monitoring his hemoglobin and iron deficiency is warranted. I recommend he get outpatient intravenous iron therapy. I recommend recheck of hemoglobin and return to the emergency department if significant rectal bleeding. May need transfusion. Hold aspirin pending outpatient clinic follow-up (2) Anemia: Status: Acute Problem details: Acute on chronic anemia possibly due to GI bleeding. Already on oral iron therapy. Still has iron deficiency. Probably needs intravenous iron to correct his iron deficiency. Did not require blood transfusion on this admission. Outpatient follow-up of hemoglobin and iron replacement. 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 Discussed with primary care whether to resume aspirin 81 mg daily with risk of recurrent lower GI bleeding balanced against risk of recurrent stroke. DS: Summary Hospital Course Hospital Course: Ming Schafer is a 89 year old male with longstanding history of previous lower GI bleeding thought secondary to diverticulosis presents with a several- day history of maroon-colored stools this week. He reports having 2 or 3 stools appearing like raspberry jam every day. Said no abdominal pain. No fever. No vomiting. He has been eating normally. He says this is reminiscent of previous episodes of lower GI bleeding. Previous colonoscopies have not identified obvious site of bleeding though he has had diverticuli identified with colonoscopy, most recently 03/06/2023. At that time he also had EGD which was normal. He takes aspirin 81 mg daily. No anticoagulation. He does carry a diagnosis of iron deficiency anemia and is on iron supplement as well as B12 deficiency on B12 supplement. Previous history of a stroke, BPH, GERD with Barretts esophagus with dysplasia, complete AV block with a pacemaker, ascending aortic dilation, anxiety During his hospital stay his hemoglobin dropped and stabilized around 7.8 for the last day and a half. For the last day he has had no significant further rectal bleeding. I offered upper and lower endoscopy to evaluate for source of bleeding but he has declined that. The bleeding is likely from a diverticular source which has been suspected on previous episodes of bleeding but never confirmed. He otherwise reports feeling well. He has ongoing iron deficiency despite being on oral iron so likely needs intravenous iron. Outpatient follow- up to recheck his hemoglobin later this week and to discuss intravenous iron and evaluation for source of GI bleeding if desired. Status at Discharge Overall status at discharge: patient is progressing back to baseline Time Spent with Patient Time attestation: Total time spent providing and/or coordinating discharge services: Time spent: Greater than 30 minutes Exam Narrative: Exam Narrative: He is alert and appears in no distress. Abdomen is soft. No tenderness. Normal formed brown stool today Const: Vital Signs, click to edit/add: Vital Signs - 24 hr 11/07/24 15:00 11/07/24 15:00 11/07/24 15:00 Temperature 97.8 F Pulse Rate 69 Pulse Rate [Pulse Oximeter] 63 63 Respiratory Rate 18 18 Blood Pressure [Ri t Arm] 108/57 L Pulse Oximetry 95 Oxygen Delivery Me thod Room Air 11/07/24 21:56 11/08/24 02:11 11/08/24 02:11 Temperature 97.8 F 97.4 F L Pulse Rate 69 Pulse Rate [Pulse Oximeter] 62 85 Respiratory Rate 16 16 Blood Pressure [Ri ght Arm] 108/55 L 135/65 Pulse Oximetry 94 96 Oxygen Delivery Me thod Room Air Room Air 11/08/24 06:00 11/08/24 07:00 11/08/24 07:00 Temperature 98.5 F 98.0 F Pulse Rate 61 Pulse Rate [Pulse Oximeter] 66 64 Respiratory Rate 16 18 Blood Pressure [Ri ght Arm] 136/67 Pulse Oximetry 96 94 Oxygen Delivery Me thod Room Air Room Air 11/08/24 07:00 11/08/24 11:00 Temperature 97.4 F L Pulse Rate Pulse Rate [Pulse Oximeter] 64 70 Respiratory Rate 18 18 Blood Pressure [Ri ght Arm] 130/65 Pulse Oximetry 96 Oxygen Delivery Me thod Room Air Documenting provider has reviewed patient's vital signs: yes DS: Data Data Completed and Pending Completed studies during hospitalization: Procedures Labs on day of discharge: Labs from last 24 hours 11/08/24 06:13 WBC 4.41 L RBC 2.33 L Hgb 7.8 L* Hct 23.8 L MCV 102 H MCH 34 MCHC 33 RDW Coeff of Casie 14.1 Plt Count 121 L Neut % (Auto) 63.3 Lymph % (Auto) 20.6 [place] % (Auto) 12.0 H Eos % (Auto) 3.2 Baso % (Auto) 0.7 Neut # (Auto) 2.80 Lymph # (Auto) 0.90 [place] # (Auto) 0.50 Eos # (Auto) 0.10 Baso # (Auto) 0.00 Abs Immat Gran (auto) 0.00 Imm/Tot Granulo (auto) 0.[address] scan - abdomen: Radiologist's impression: NDICATION: Gastrointestinal bleeding, melena. TECHNIQUE: Multiplanar CT angiogram examination of the abdomen and pelvis was performed after the administration of 100 mL Omnipaque 350 intravenous contrast, gastrointestinal bleed protocol. COMPARISON: None. FINDINGS: Lower chest: No focal consolidation. Cardiomegaly. Partially visualized pacemaker leads. Small hiatal hernia with evidence of reflux. No pleural effusions or pneumothorax. Segmental dependent atelectasis. Liver: Subcentimeter hepatic hypodensities, too small to characterize. Gallbladder: Cholecystectomy. Biliary: Unremarkable. Pancreas: Within normal limits. Spleen: Unremarkable. Adrenal glands: Unremarkable. Renal/ureters/bladder: Normal in size and symmetrically enhancing. No obstructive uropathy. No hydronephrosis or obstructive urinary calculi. No suspicious renal masses. The ureters appear unremarkable. Small bladder diverticulum, likely due to chronic outlet obstruction. Pelvis: Mild prostatomegaly. Gastrointestinal: Postsurgical changes from prior small bowel resection. No bowel wall thickening or bowel obstruction. Normal appendix. Colonic diverticulosis. Mild colonic stool burden. Vasculature: No extravasation of contrast suggestive of active arterial hemorrhage. No pooling of contrast material on the delayed venous phase images. No aortic aneurysm. The portal vein remains patent. Extensive atherosclerotic calcifications. Lymph nodes: No pathologic lymphadenopathy by size criteria. Peritoneum: No free fluid or pneumoperitoneum. No drainable fluid collections. Abdominal wall/soft tissues: Unremarkable. Bones: No acute osseous abnormalities. Status post bilateral parasymphyseal and left femoral neck ORIF. Degenerative changes of the visualized thoracolumbar spine. IMPRESSION: 1. There is no active extravasation or delayed venous pooling of contrast material to suggest active gastrointestinal hemorrhage. 2. Colonic diverticulosis without CT evidence of acute diverticulitis. 3. Otherwise, no acute abdominopelvic findings. 4. Prostatomegaly. Discharge Plan Discharge Disposition: Home, Self-Care Date of Admission: 11/06/24 19:08 Attending Provider on Discharge: Jose Francisco Coley Primary Care Provider: Jennifer Carter Condition: Stable Anticipated Discharge Date/Time: 11/08/24 11:39 Discharge Medications: Continued ferrous sulfate 325 mg (65 mg iron) tablet,delayed release (DR/EC) 325 mg PO DAILY cyanocobalamin (vitamin B-12) 1,000 mcg capsule 1,000 mcg PO 3XW finasteride 5 mg tablet 5 mg PO DAILY latanoprost 0.005 % Drops 1 drp ophthalmic (eye) HS 30 Days Qty: 2.5 0RF Patient Comments: BOTH EYES atorvastatin 40 mg Tablet 40 mg PO HS 30 Days Qty: 30 0RF sertraline 50 mg tablet 150 mg PO DAILY Qty: 90 2RF acetaminophen 500 mg capsule 500 - 1,000 mg PO Q6H MDD 4000mg PRNQty: 100 0RF sennosides-docusate sodium [Senna-S] 8.6-50 mg tablet 1 tab-cap PO DAILY PRN (Reason: constipation) Rx Instructions: Hold medication if experiencing loose stools. propranolol 20 mg tablet 20 mg PO BID omeprazole 40 mg capsule,delayed release(DR/EC) 40 mg PO DAILY tamsulosin 0.4 mg capsule 0.4 mg PO DAILY Discontinued aspirin 81 mg tablet,delayed release (DR/EC) 81 mg PO DAILY Discharge Orders: Discharge Order (Routine); Ordered 11/08/24 Ordered By: Jose Francisco Coley Patient Education: Gastrointestinal Bleeding (DC) Additional Instructions: Do not take aspirin until you talk to your doctor about the risks (bleeding) and benefits(reduced risk of stroke) from taking aspirin. Continue oral iron pills but talk to your doctor about arranging intravenous iron for your iron deficiency anemia. Return to the emergency department if you have significant rectal bleeding Activity Level: No Restrictions Discharge Diet: Regular Follow Up Appointments: Jennifer Carter PA-C [Primary Care Provider] - 11/13/24 10:30 am (Jet Workman for postop hospital follow-up, have hemoglobin checked at this appointment.) Forms: [employer] Info Instructions
--- NOTE | 2024-11-08 15:22 | PC.NURSE ---
Discharge: Patient pleasant and cooperative, A&O. VSS, afebrile. Patient denies pain. IV removed with tip intact. Discharge instructions provided, all questions answered. Discharged to home.
== END 2024-11-08 14:04 | disposition home or self-care (01) | DRG 378 ==
LOC: ED 13:01 → MEDSURG 15:44
PROVIDERS: Admitting Provider Family Medicine; Emergency Provider Emergency Medicine; PCP Physician Assistant; Visit Provider Family Medicine
DX: K92.2 Gastrointestinal hemorrhage, unspecified (principal); D62 Acute posthemorrhagic anemia; I44.2 Atrioventricular block, complete; D50.9 Iron deficiency anemia, unspecified; K21.9 Gastro-esophageal reflux disease without esophagitis; K22.719 Barrett's esophagus with dysplasia, unspecified; Z95.0 Presence of cardiac pacemaker; I77.810 Thoracic aortic ectasia; F41.9 Anxiety disorder, unspecified; Z86.73 Personal history of transient ischemic attack (TIA), and cerebral infarction without residual deficits; N40.0 Benign prostatic hyperplasia without lower urinary tract symptoms; E78.5 Hyperlipidemia, unspecified
CPT/HCPCS: 36415; 74174; 80053; 82270; 83540; 83550; 84484; 85018; 85025; 85610; 85730; 86140; 86850; 86900; 86901; 93005; 99284; 99285; A9270; J2470; J7030; Q9967

== ENCOUNTER 2025-03-09 20:35 | Emergency (ER) | payer MEDICARE, BC, SELFPAY ==
--- OUTSIDE RECORDS SUMMARY | 2025-03-09 20:39 | XMS_ITS | Clinical Summary ---
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 Gender Identity Not on file Sexual Orientation [...] 1935 LIPID 1937 FALL RISK ASSESSMENT 2002 MEDICARE ANNUAL WELLNESS VISIT 02/08/2024 02/07/2023 COVID-19 VACCINE ( season) 2024 10/31/2023, 05/24/2023, 02/07/2023, Additional history exists PHQ-2 (once per calendar year) 2024 INFLUENZA VACCINE (#1) 2025 , 05/16/2022, 05/05/2021, Additional history exists DTAP/TDAP/TD VACCINE (3 - Td or Tdap) 12/09/2033 12/10/2023, 05/01/2011 PNEUMOCOCCAL VACCINE 50+ YEARS Completed 11/15/2014, 06/30/2012, 05/09/2011 ZOSTER VACCINE Completed 08/27/2019, 07/06, 05/21/2018, Additional history exists RSV VACCINE Completed 10/11/2023 HPV VACCINE (No Doses Required) Completed MENINGITIS VACCINE Aged Out No longer eligible based on patient's age to complete this topic Insurance [facility] [employer] [employer] MEDICARE [facility] [employer] Care Teams Shearing Shed Worker Relationship Specialty Start Date End Date Jennifer Carter PA-C [address] [place] [address] PCP - General 01/20/24
--- OUTSIDE RECORDS SUMMARY | 2025-03-09 20:39 | XMS_ITS | Clinical Summary ---
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 90 Tablet 3 4 Active Additional Information Patient not taking.Reported on 01/08/2025 atorvastatin (LIPITOR) 40 mg tabletIndicatio ns:Cerebrovascu lar accident (CVA), unspecified mechanism (HC) Take 1 Tablet (40 mg) by mouth at bedtime. 90 Tablet 3 4 Active finasteride (PROSCAR) 5 mg tabletIndicatio ns:BPH without urinary obstruction Take 1 Tablet (5 mg) by mouth once daily in the morning. 90 Tablet 3 4 Active sertraline (ZOLOFT) 100 mg tabletIndicatio ns:Current severe episode of major depressive disorder with psychotic features without prior episode (HC) Take 1.5 Tablets (150 mg) by mouth once daily in the morning. 135 Tablet 3 4 Active latanoprost (XALATAN) 0.005 % ophthalmic solution Place 1 Drop into both eyes at bedtime. 4 Active acetaminophen (TYLENOL EXTRA STRGTH) 500 mg tablet Max acetaminophen dose: 4000mg in 24 hrs. One-two tabs every six hours as needed Active propranoloL (INDERAL) 20 mg tabletIndicatio ns:Tremor Take 1 Tablet (20 mg) by mouth two times daily. 180 Tablet 3 4 Active cyanocobalamin (VITAMIN B12) 1,000 mcg tabletIndicatio ns:prevention of vitamin B12 deficiency Take 1 tablet qd 3 days per week. 4 Active tamsulosin 0.4 mg capsuleIndicati ons:does not need to be filled right now Take 2 Capsules (0.8 mg) by mouth once daily after a meal. 90 Capsule 3 5 Active omeprazole 40 mg Delayed-Release capsuleIndicati ons:Chronic GERD Take 1 Capsule (40 mg) by mouth once daily before a meal. 90 Capsule 2 5 Active Active Problems Problem Noted Date Diagnosed Date Major depressive disorder, s kim episode, severe without psychotic features 12/26/2024 Essential tremor 08/24/2024 Cardiac pacemaker 02/03/2024 Precancerous skin lesion 09/24/2023 Ascending aorta dilation 08/29/2023 Acute ischemic left OPERATER stroke 03/17/2023 Anxiety 03/13/2023 CARROLL (obstructive sleep apnea) 02/18/2023 Chronic GERD 02/09/2023 BPH without urinary obstruction 02/09/2023 Iron deficiency anemia 02/09/2023 B12 deficiency 02/09/2023 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 Ventral hernia, unspecified, without mention of obstruction or gangrene 05/07/2011 Resolved Problems Problem Noted Date Diagnosed Date Resolved Date Atrioventricular block, complete 08/29/2023 11/16/2024 Current severe episode of ma kinza depressive disorder with psychotic features without prior episode 03/13/2023 11/16/2024 Encounters Date Type Department Care Team Description 03/09/2025 Nurse Triage [facility] [address] [place] [address] Jennifer Carter PA Penis/Scrotum Problem 03/04/2025 11:00 AM CDT Office Visit [facility] [address] [facility] [place] [address] HuyVanita AuD Hearing Aid ([place] consult) 03/04/2025 9:00 AM CDT Office Visit [facility] [address] [facility] [place] [address] HuyVanita AuD Hearing Problem (Hearing test) 03/04/2025 Travel 02/27/2025 Travel 02/22/2025 Telephone [facility] [address] [place] [address] Jennifer Carter PA Referral 02/12/2025 Procedure Only [address] [place] [address] Device Check (Remote Medtronic Pacemaker E... 01/25/2025 Refill [facility] [address] [place] [address] Jennifer Carter PA Refill Request (Omeprazole 40mg CPDR) 01/08/2025 8:30 AM CDT Office Visit [facility] [address] [place] [address] Becka Fontana PA Consult (N40.0 (ICD-10-CM) - BPH without urinary obstruction/N39.43 (ICD-10-CM) - Post-void dribbling/N39.490 (ICD-10-CM) - Overflow incontinence//) 01/08/2025 Travel 01/02/2025 Medical Messaging [facility] [address] [place] [address] Jennifer Carter PA Message about your results 12/25/2024 11:30 AM CDT Ancillary Procedure [address] [address] 12/25/2024 10:30 AM CDT Office Visit [facility] [address] [place] [address] Jennifer Carter PA Urinary Problem (Took abx for a week for urinary problem-has not helped-still having urgency and sometimes starts dripping before he can make it) 12/24/2024 Travel 12/23/2024 Telephone [facility] [address] [place] [address] Jennifer Carter PA Follow Up 12/12/2024 5:30 PM CDT E-Visit [facility] [address] [place] [address] [address] Jennifer Carter PA eVisit for Urinary Tract Infection from Last 3 Months Immunizations Immunization Administration Dates Next Due COVID-19 VACCINE SPIKEVAX (M ODERNA 50MCG/0.5ML) 12YO+ PFS 10/31/2023,05/24/2023 COVID-19 vaccine (Pfizer-Bio NTech 30mcg/0.3mL) 12YO+ BIVALENT [...] Date Smoking Tobacco: Former Cigarettes Q uit: 1954 Smokeless Tobacco: Never Tobacco Cessation:Counseling Given: Not [...] on file 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 Gender Identity Not on file Sexual Orientation Not on file Obstetrics History Last Filed Vital Signs Vital Sign Reading Time Taken Comments Blood Pressure 128/62 01/08/2025 8:50 AM CDT Pulse 66 01/08/2025 8:50 AM CDT Temperature 36.5 C (97.7 F) 12/02/2024 12:32 PM CDT Respiratory Rate 16 08/02/2023 10:24 AM STRUCTURAL METAL WORKER Oxygen Saturation 96% 12/25/2024 10:40 AM CDT Inhaled Oxygen Concentration - - Weight 75.8 kg (167 lb 3.2 oz) 01/08/2025 8:50 A M CDT Height 179.3 cm (5' 10.6) 03/02/2024 2:03 PM CD T Body Mass Index 23.58 03/02/2024 2:03 PM CDT Plan of Treatment Upcoming Encounters Date Type Department Care Team (Late st Contact Info) Description 03/22/2025 1:30 PM CDT Office Visit [facility] [address] [place] [address] Huy, [place], [facility] [address] [place] [address] 04/06/2025 11:15 AM CDT Appointment [facility] [address] [place] [address] 04/15/2025 1:30 PM CDT Procedure Only [facility] [address] [place] [address] Josh Mcallister MD [address] [place] [address] 05/19/2025 Procedure Only [facility] [address] [facility] [address] [place] [address] Health Maintenance Due Date Last Done Comments COVID-19 vaccine series ( season) 2025 07/16/2024, 10/31/2023, 05/24/2023, Additional history exists BMI (ht and wt on same day) for age 18+ 03/02/2025 03/02/2024, 02/03/2024, 08/02/2023, Additional history exists Depression screening for age 12+ 03/02/2025 03/02/2024, 03/16/2023, 03/15/2023, Additional history exists Medicare Wellness for age 65+ 03/03/2025 03/02/2024, 02/07/2023 Influenza Vaccine (#1) 2025 , 05/24/2023, 05/16/2022, Additional history exists Tetanus booster 12/09/2033 12/10/2023, 05/01/2011 Pneumococcal series for age 50+ Completed 11/15/2014, 06/30/2012, 05/09/2011 Zoster (shingles) series for age 50+ Completed 08/27/2019, 07/24/2018, 05/21/2018, Additional history exists RSV vaccine for adults or Completed 10/11/2023 Hepatitis B series for 19+ Aged Out N o longer eligible based on patient's age to complete this topic Medical Devices Implanted Type Area Social Worker Aide Device Identifier Shelf Expiration Date Model / Serial / Lot Mesh Ventralex St Lg Circ 8.0cm - [id number] Implanted:Qty: 1 on 07/14/2012 at [facility] N/A: Abdomen DAVOL 04/05/2014 [id number] / / [id number] Procedures Procedure Name Priority Date/Time Associated Diagnosis Comments URINALYSIS MICROSCOPIC Routine 01/08/2025 10:38 AM CDT Microhematuria UA W/ SEDIMENT EXAM REFLEXED PER CRITERIA Routine 01/08/2025 10:[address] CELSO POST-VOIDING RESIDUAL URINE&/BLADDER CAP Routine 01/08/2025 12:00 AM CDT Benign prostatic hyperplasia, unspecified whether lower urinary tract symptoms present Urinary frequency BPH without urinary obstruction Post-void dribbling Overflow incontinence FERRITIN Routine 12/25/2024 12:06 PM CDT Iron deficiency anemia due to chronic blood loss IRON PLUS IRON BINDING CAP Routine 12/25/2024 12:06 PM CDT Iron deficiency anemia due to chronic blood loss CBC WITH AUTO DIFFERENTIAL Routine 12/25/2024 12:06 PM CDT Urinary urgency BASIC METABOLIC PANEL Routine 12/25/2024 12:06 PM CDT Urinary urgency PSA TOTAL Routine 12/25/2024 12:06 PM CDT Urinary urgency URINALYSIS MACROSCOPIC - [facility] ONLY POC DIP ([facility]) Routine 12/25/2024 12:05 PM CDT Urinary urgency URINALYSIS MICROSCOPIC Routine 12/25/2024 11:59 AM CDT Urinary urgency URINE CULTURE Routine 12/25/2024 11:59 AM CDT Urinary urgency CT ABDOMEN PELVIS W STAT 12/25/2024 1 1:53 AM CDT Urinary urgency from Last 3 Months Results * (ABNORMAL) URINALYSIS MICROSCOPIC (01/08/2025 10:38 AM CDT) Only the most recent of2 resultswithin the time period is included. RBC 6-10(A) 0-2, None Seen /HPF 01/08/2025 11:05 AM T [facility] WBC 0-2 0-2, 3-5, None Seen /HPF 01/08/2025 11:05 AM [facility] BACTERIA Few None Seen, Rare, Few Bacteria/H PF 01/08/2025 11:05 AM [facility] EPITHELIAL CELLS Few None Seen, Few Epi/HPF 01/08/2025 11:05 AM [facility] Mucus Present 01/08/2025 11:05 AM [facility] Urine URINE SPECIMEN / Unknown Non-Blood / Unknown 01/08/2025 10:38 AM CDT 01/08/2025 10:39 AM CDT us Becka ANDUJAR URINE Final Res ult [facility] [address] [place] [address] * (ABNORMAL) UA W/ SEDIMENT EXAM REFLEXED PER CRITERIA (01/08/2025 10:38 AM CDT) COLOR Yellow Yellow Color 01/08/2025 10:49 AM T [facility] CLARITY Clear Clear Clarity 01/08/2025 10:49 AM T [facility] SPECIFIC GRAVITY,URINE 1.020 1.010, 1.015, 1.020, 1.025 01/08/2025 10:49 AM [facility] PH,URINE 6.0 6.0, 7.0, 8.0, 5.5, 6.5, 7.5, 8.5 01/08/2025 10:49 AM [facility] UROBILINOGEN, QUALITATIVE Normal Normal EU/dl 01/08/2025 10:49 AM [facility] PROTEIN, URINE Negative Negative mg/dL 01/08/2025 10:49 AM [facility] GLUCOSE, URINE Negative Negative mg/dL 01/08/2025 10:49 AM [facility] KETONES,URINE Negative Negative mg/dL 01/08/2025 10:49 AM [facility] BILIRUBIN,URI NE Negative Negative 01/08/2025 10:49 AM [facility] OCCULT BLOOD,URINE Small(A) Negative 01/08/2025 10:49 AM [facility] NITRITE Negative Negative 01/08/2025 10:49 AM [facility] LEUKOCYTE ESTERASE Trace(A) Negative 01/08/2025 10:49 AM [facility] Urine URINE SPECIMEN / Unknown Non-Blood / Unknown 01/08/2025 10:38 AM CDT 01/08/2025 10:39 AM CDT Becka ANDUJAR URINE Final Res ult [facility] [address] [place] [address] * CT CELSO POST-VOIDING RESIDUAL URINE&/BLADDER CAP (01/08/2025 12:00 AM CDT) Becka ANDUJAR PB - URINARY SYSTEM SERVI LEE Final Result * (ABNORMAL) IRON PLUS IRON BINDING CAP (12/25/2024 12:06 PM CDT) IRON, TOTAL 55 50 - 180 mcg/dL [facility] IRON BINDING CAPACITY 334 250 - 425 mcg/dL (calc) [facility] % SATURATION 16(L) 20 - 48 % (calc) [facility] Blood BLOOD SPECIMEN / Unknown 12/25/2024 12:06 PM CDT 12/25/2024 12:06 PM CDT us Jennifer ANDUJAR CHEMISTRY Final Resu lt [facility] [address] [place] [address], [facility] [address] [place] [address] * (ABNORMAL) CBC AND DIFFERENTIAL (12/25/2024 12:06 PM CDT) WHITE BLOOD CELL COUNT 3.7(L) 3.8 - 10.8 Thousand/u L [facility] RED BLOOD CELL COUNT 3.91(L) 4.20 - 5.80 Million/uL [facility] HEMOGLOBIN 11.9(L) 13.2 - 17.1 g/dL [facility] HEMATOCRIT 38.0(L) 38.5 - 50.0 % [facility] MCV 97.2 80.0 - 100.0 fL [facility] MCH 30.4 27.0 - 33.0 pg [facility] MCHC 31.3(L) 32.0 - 36.0 g/dL [facility] Comment: For adults, a slight decrease in the calculated MCHC value (in the range of 30 to 32 g/dL) is most likely not clinically significant; however, it should be interpreted with caution in correlation with other red cell parameters and the patient's clinical condition. RDW 16.7(H) 11.0 - 15.0 % [facility] PLATELET COUNT 124(L) 140 - 400 Thousand/u L [facility] MPV 12.6(H) 7.5 - 12.5 fL [facility] ABSOLUTE NEUTROPHILS 2,346 1,500 - 7,800 cells/uL [facility] ABSOLUTE LYMPHOCYTES 759(L) 850 - 3,900 cells/uL [facility] ABSOLUTE MONOCYTES 514 200 - 950 cells/uL [facility] ABSOLUTE EOSINOPHILS 52 15 - 500 cells/uL [facility] ABSOLUTE BASOPHILS 30 0 - 200 cells/uL [facility] NEUTROPHILS 63.4 % [facility] LYMPHOCYTES 20.5 % [facility] MONOCYTES 13.9 % [facility] EOSINOPHILS 1.4 % [facility] BASOPHILS 0.8 % [facility] Blood BLOOD SPECIMEN / Unknown 12/25/2024 12:06 PM CDT 12/25/2024 12:06 PM CDT Jennifer ANDUJAR HEMATOLOGY Final Resu lt [facility] [address] [place] [address], [facility] [address] [place] [address] * PSA TOTAL (DIAG OR SCREEN) (12/25/2024 12:06 PM CDT) PSA, TOTAL 0.88 < OR = 4.00 ng/mL [facility] Comment: The total PSA value from this assay system is standardized against the WHO standard. The test result will be approximately 20% lower when compared to the equimolar-standardized total PSA ([place]eth [place]). Comparison of serial PSA results should be interpreted with this fact in mind. This test was performed using the Siemens chemiluminescent method. Values obtained from different assay methods cannot be used interchangeably. PSA levels, regardless of value, should not be interpreted as absolute evidence of the presence or absence of disease. Blood BLOOD SPECIMEN / Unknown 12/25/2024 12:06 PM CDT 12/25/2024 12:06 PM CDT Jennifer ANDUJAR CHEMISTRY Final Resu lt [facility] [address] [place] [address], [place] [phone] [facility] [address] [place] [address] * FERRITIN (12/25/2024 12:06 PM CDT) [facility] FERRITIN 66 24 - 380 ng/mL [facility] Blood BLOOD SPECIMEN / Unknown 12/25/2024 12:06 PM CDT 12/25/2024 12:06 PM CDT Jennifer ANDUJAR CHEMISTRY Final Resu lt Performing Organization Address [facility]/ZIP Co de Phone Number [facility] [address] [place] [address], [place] [phone] [facility] [address] [place] [address] * (ABNORMAL) BASIC METABOLIC PANEL (12/25/2024 12:06 PM CDT) [facility] GLUCOSE 75 65 - 99 mg/dL [facility] Comment: Fasting reference interval UREA NITROGEN (BUN) 22 7 - 25 mg/dL [facility] CREATININE 0.81 0.70 - 1.22 mg/dL [facility] EGFR 85 > OR = 60 mL/min/1. 73m2 [facility] BUN/CREATININE RATIO SEE NOTE: 6 - 22 (calc) [facility] Comment: Not Reported: BUN and Creatinine are within reference range. SODIUM 139 135 - 146 mmol/L [facility] POTASSIUM 4.2 3.5 - 5.3 mmol/L [facility] CHLORIDE 104 98 - 110 mmol/L [facility] CARBON DIOXIDE 29 20 - 32 mmol/L [facility] ELECTROLYTE BALANCE 6(L) 7 - 17 mmol/L (calc) [facility] CALCIUM 8.9 8.6 - 10.3 mg/dL [facility] Blood BLOOD SPECIMEN / Unknown 12/25/2024 12:06 PM CDT 12/25/2024 12:06 PM CDT Jennifer ANDUJAR CHEMISTRY Final Resu lt Performing Organization Address City/[facility]/ZIP Co de Phone Number [facility] [address] [place] [address], [facility] [address] [place] [address] * (ABNORMAL) POCT Urinalysis Dipstick Only [[id number]] (12/25/2024 12:05 PM CDT) PH 7.0 5.0 - 8.0 [facility] SPECIFIC GRAVITY 1.015 1.001 - 1.035 [facility] GLUCOSE NEGATIVE NEGATIVE [facility] BILIRUBIN NEGATIVE NEGATIVE [facility] KETONES NEGATIVE NEGATIVE [facility] OCCULT BLOOD 1+(A) NEGATIVE [facility] PROTEIN NEGATIVE NEGATIVE [facility] NITRITE NEGATIVE NEGATIVE [facility] LEUKOCYTE ESTERASE NEGATIVE NEGATIVE [facility] Urine URINE SPECIMEN / Unknown 12/25/2024 12:05 PM CDT 12/25/2024 12:05 PM CDT Jennifer ANDUJAR URINE Final Resu lt Performing Organization Address City/[facility]/ZIP Co de Phone Number [facility] [address] [place] [address], [place] [phone] [facility] [address] [place] [address] * URINE CULTURE [00897.2] (12/25/2024 11:59 AM CDT) CULTURE No growth (<1,000 CFU/mL) 12/27/2024 2:50 PM CDT [facility] Urine URINE SPECIMEN / Unknown Non-Blood / Unknown 12/25/2024 11:59 AM CDT 12/25/2024 11:59 AM CDT us Jennifer ANDUJAR MICROBIOLOGY Final Resu lt [facility] [address] [place] [address], [place] * CT ABDOMEN PELVIS W (12/25/2024 11:53 AM CDT) Anatomical Region Laterality Modality Abdomen, Pelvis, AORTA, LIVER, SPLEEN Computed Tomography 12/25/2024 12:2 3 PM CDT Narrative 12/25/2024 12:23 PM CDT For Patients: As a result of the Cures Act, medical imaging exams and procedure reports are released immediately into your electronic medical record. You may view this report before your referring provider. If you have questions, please contact your health care provider. Indication: Urinary urgency, pelvic pressure Technique: Volumetric multidetector CT images of the abdomen and pelvis were obtained after the administration of intravenous contrast. 100 cc Omnipaque 350 low osmolar intravenous contrast Comparison: CT abdomen and pelvis May 12, 2011 Findings: There is basilar atelectasis and parenchymal scar. The liver is enlarged with moderate hepatomegaly and hepatic steatosis. There is limited perfusion of the portal vein secondary to contrast bolus timing without evidence of filling defect. There are dependent calculi within the gallbladder. There is no significant common biliary ductal dilatation or abrupt cut off. The spleen is normal in enhancement and size. There is a partially intrathoracic stomach with moderate thickening of the gastric rugal folds and gastric antrum likely representing chronic gastritis changes. The pancreas is normal in enhancement without significant atrophy. The adrenal glands are unremarkable. The kidneys demonstrate preserved corticomedullary differentiation without evidence of obstructive uropathy. There is moderate to severe stool within the proximal colon with extensive distal colonic diverticulosis with focal thickening and mild pericolonic inflammation of the distal descending and rectosigmoid colon. Postoperative change status post prior small bowel resection and primary reanastomosis is appreciated. The appendix is unremarkable. There is no significant mesenteric, retroperitoneal, or pelvic sidewall lymph nodes. The aorta is nonaneurysmal with mild to moderate scattered atherosclerotic calcification. Evaluation of the pelvis is somewhat limited due to beam hardening artifact from pelvic fixation hardware and left hip fixation hardware. There is a moderately distended urinary bladder with extensive bladder diverticula. There is no free fluid or free air. The anterior abdominal wall is intact without significant hernias. The lumbar vertebral body heights demonstrate chronic compression deformity of the T12 level. Otherwise the lumbar vertebral bodies are grossly maintained with minimal anterolisthesis of L4 on L5. Additional somewhat age-indeterminate deformity of the S2 vertebral body segment is appreciated. Impression: 1. Moderate to severe stool seen throughout the proximal colon with extensive distal colonic diverticulosis with focal thickening and mild pericolonic inflammation of the distal descending and rectosigmoid colons with additional circumferential thickening and mucosal hyperemia at the level of the rectum. 2. Partially intrathoracic stomach with likely mild chronic gastritis changes. 3. Moderately distended urinary bladder with extensive bladder diverticula. No evidence of obstructive uropathy or radiopaque calculus. Please note that all CT scans at this facility use dose modulation, iterative reconstruction, and/or weight-based dosing when appropriate to reduce radiation dose to as low as reasonably achievable. Dictated by Theron Garcia MD @ 12/25/2024 12:23:28 PM (Electronically Signed) Procedure Note Theron Garcia MD - 12/25/2024 For Patients: As a result of the Century Cures Act, medical imagingexams and procedure reports are released immediately into your electronicmedical record. You may view this report before your referring provider.If you have questions, please contact your health care provider. Indication: Urinary urgency, pelvic pressure Technique: Volumetric multidetector CT images of the abdomen and pelvis were obtainedafter the administration of intravenous contrast. 100 cc Omnipaque 350 low osmolar intravenous contrast Comparison: CT abdomen and pelvis May 12, 2011 Findings: There is basilar atelectasis and parenchymal scar. The liver is enlarged with moderate hepatomegaly and hepatic steatosis. There is limited perfusion of the portal vein secondary to contrast bolustiming without evidence of filling defect. There are dependent calculi within the gallbladder. There is no significant common biliary ductal dilatation or abrupt cutoff. The spleen is normal in enhancement and size. There is a partially intrathoracic stomach with moderate thickening of thegastric rugal folds and gastric antrum likely representing chronicgastritis changes. The pancreas is normal in enhancement without significant atrophy. The adrenal glands are unremarkable. The kidneys demonstrate preserved corticomedullary differentiation withoutevidence of obstructive uropathy. There is moderate to severe stool within the proximal colon with extensivedistal colonic diverticulosis with focal thickening and mild pericolonicinflammation of the distal descending and rectosigmoid colon.Postoperative change status post prior small bowel resection and primaryreanastomosis is appreciated. The appendix is unremarkable. There is no significant mesenteric, retroperitoneal, or pelvic sidewalllymph nodes. The aorta is nonaneurysmal with mild to moderate scattered atheroscleroticcalcification. Evaluation of the pelvis is somewhat limited due to beam hardeningartifact from pelvic fixation hardware and left hip fixation hardware.There is a moderately distended urinary bladder with extensive bladderdiverticula. There is no free fluid or free air. The anterior abdominal wall is intact without significant hernias. The lumbar vertebral body heights demonstrate chronic compressiondeformity of the T12 level. Otherwise the lumbar vertebral bodies aregrossly maintained with minimal anterolisthesis of L4 on L5. Additionalsomewhat age-indeterminate deformity of the S2 vertebral body segment isappreciated. Impression: 1. Moderate to severe stool seen throughout the proximal colon withextensive distal colonic diverticulosis with focal thickening and mildpericolonic inflammation of the distal descending and rectosigmoid colonswith additional circumferential thickening and mucosal hyperemia at thelevel of the rectum. 2. Partially intrathoracic stomach with likely mild chronic gastritischanges. 3. Moderately distended urinary bladder with extensive bladderdiverticula. No evidence of obstructive uropathy or radiopaque calculus. Please note that all CT scans at this facility use dose modulation,iterative reconstruction, and/or weight-based dosing when appropriate toreduce radiation dose to as low as reasonably achievable. 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
--- OUTSIDE RECORDS SUMMARY | 2025-03-09 20:39 | XMS_ITS | Clinical Summary ---
Author Organization [facility] Address [address] [place] [address] Care Team Providers Care New Accounts Clerk Name Role Phone Unavailable Primary Care Provider Unavailabl e Source Comments Patient records contain information from all sites at [facility]. For routine questions regarding patient records, call [phone] during business hours, M-F 8:00 AM - 5:00 PM Central Time. 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
--- NOTE | 2025-03-09 20:45 | ED.MALEGU ---
HPI - Male Genitourinary General Time Seen by Provider: 20:47 Date Seen: 03/09/25 Chief complaint: Urogenital Problems, Male Stated complaint: Urinary issues, blood in urine Time Seen by Provider: 03/09/25 20:45 Source: patient and family (daughter) Mode of arrival: ambulatory History of Present Illness HPI Narrative: Ming is an 89-year-old male who presents the emergency department for evaluation of hematuria. Patient reports that around 2:00 p.m. this afternoon he noticed some pink tinge in his underwear. Patient states that later in the evening he noticed a small amount of blood at the tip of his penis. Patient denies any dysuria, gross hematuria, testicular pain, penile pain. Patient denies any fever, chills, nausea, vomiting, abdominal pain, flank pain, chest pain, shortness of breath. No other complaints. Patient reports he was concerned he may have an infection so came in for evaluation. Patient does currently follow up with urology and is scheduled to follow-up with him the beginning of April for a cystoscope ED with a possible biopsy due to recently having micro hematuria. Patient had CT scan the abdomen pelvis back in December which I reviewed. No other complaints. Related Data Home Medications ?Medication ?Instructions ?Recorded ?Confirmed finasteride 5 mg tablet 5 mg PO DAILY 08/27/22 11/06/24 omeprazole 40 mg capsule,delayed 40 mg PO DAILY 03/06/23 11/06/24 release tamsulosin 0.4 mg capsule 0.4 mg PO DAILY bph 03/06/23 11/06/24 cyanocobalamin (vitamin B-12) 1,000 mcg PO 3XW 05/05/24 11/06/24 1,000 mcg capsule ferrous sulfate 325 mg (65 mg 325 mg PO DAILY 05/05/24 11/06/24 iron) tablet,delayed release propranolol 20 mg tablet 20 mg PO BID 11/06/24 11/06/24 sennosides 8.6 mg-docusate sodium 1 tab-cap PO DAILY PRN constipation 11/06/24 11/06/24 50 mg tablet (Senna-S) Previous Rx's ?Medication ?Instructions ?Recorded acetaminophen 500 mg capsule 500 - 1,000 mg (1 - 2 x 500 mg) PO 03/31/24 Q6H PRN #100 caps atorvastatin 40 mg tablet 40 mg PO HS 30 days #30 tabs 03/31/24 latanoprost 0.005 % eye drops 1 drp ophthalmic (eye) HS 30 days 03/31/24 #2.5 mL sertraline 50 mg tablet 150 mg (3 x 50 mg) PO DAILY #90 03/31/24 tabs Allergies Allergy/AdvReac Type Severity Reaction Status Date / Time pine nut Allergy Verified 11/06/24 14:11 Review of Systems Narrative: Past medical history, past surgical history, medications, allergies, family history, and social history were reviewed with the patient. No additional pertinent items. A medically appropriate review of systems was performed with pertinent positives and negatives noted in HPI, all other systems negative. 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 platelet defects (ICD-10) CARROLL (obstructive sleep apnea) ?G47.33 - Obstructive sleep apnea (adult) (pediatric) (ICD-10) Atypical nevus ?D22.9 - Melanocytic nevi, unspecified (ICD-10) Ascending aorta dilation ?I77.810 - Thoracic aortic ectasia (ICD-10) Chronic GI bleeding ?K92.2 - Gastrointestinal hemorrhage, unspecified (ICD-10) Iron deficiency anemia (03/24/07) ?D50.9 - Iron deficiency anemia, unspecified (ICD-10) Anxiety ?F41.9 - Anxiety disorder, unspecified (ICD-10) Clavus ?L84 - Corns and callosities (ICD-10) Hyperlipidemia ?E78.5 - Hyperlipidemia, unspecified (ICD-10) Fracture of metacarpal bone ?S62.309A - Unspecified fracture of unspecified metacarpal bone, initial encounter for closed fracture (ICD-10) Closed dislocation of fifth metacarpal bone of right hand ?S63.266A - Dislocation of metacarpophalangeal joint of right little finger, initial encounter (ICD-10) Health care directive on file ?Z78.9 - Other specified health status (ICD-10) Hoarse voice quality ?R49.0 - Dysphonia (ICD-10) BPH (benign prostatic hyperplasia) ?N40.0 - Benign prostatic hyperplasia without lower urinary tract symptoms (ICD-10) Tremor ?R25.1 - Tremor, unspecified (ICD-10) Surgical History History of phacoemulsification of cataract with intraocular lens implantation ?Z98.49 - Cataract extraction status, unspecified eye (ICD-10) ?Z96.1 - Presence of intraocular lens (ICD-10) History of excision of lesion ?Z98.890 - Other specified postprocedural states (ICD-10) ?Z87.2 - Personal history of diseases of the skin and subcutaneous tissue (ICD-10) History of YAG laser capsulotomy of lens of right eye ?Z98.41 - Cataract extraction status, right eye (ICD-10) History of YAG laser capsulotomy of lens of left eye ?Z98.42 - Cataract extraction status, left eye (ICD-10) S/P ORIF (open reduction internal fixation) fracture (03/29/24) ?Z98.890 - Other specified postprocedural states (ICD-10) ?Z87.81 - Personal history of (healed) traumatic fracture (ICD-10) H/O hernia repair ?Z98.890 - Other specified postprocedural states (ICD-10) ?Z87.19 - Personal history of other diseases of the digestive system (ICD-10) S/P small bowel resection ?Z90.49 - Acquired absence of other specified parts of digestive tract (ICD-10) Social History Narrative: 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 Lives with in [place] (she has been undergoing health issues, has MCI). Son Taurus ([place] ) and daughter Nury ([facility]) would share medical decision making capabilities if needed. He requests DNR/DNI status. Smoked socially in college, previous social ETOH use, none now. Health care directive on file- Health care directive dated 04/13/20 sent for scanning on 04/22/20. What is your current living situation?: I presently have a place to live Problems where you live: no known problems Problems where you live details: N/A In the past 12 months, utilities in danger of being shut off: no In past 12 months, lack of transportation kept you from medical appts, meetings, work, or getting things needed for daily living: no In the past 12 mos, have been you worried that your food would run out before you had money to buy more?: never true In the past 12 mos, the food you bought just didn't last and you didn't have money to buy more?: never true Highest level of school completed/degree received: Doctoral degree Smoking Status: Never smoker Do you use any of these nicotine containing products: None Second hand tobacco smoke exposure: No How often do you have a drink containing alcohol: monthly or less How many standard drinks containing alcohol do you have on a typical day: 1 or 2 How often do you have six or more drinks on one occasion: Never AUDIT-C Alcohol total score: 1 Non-prescribed substance use: denies use Caffeine: Yes (1 cup/day) How often does anyone, including family, friends and others, physically hurt you: never How often does anyone, including family, friends and others, insult or talk down to you: never How often does anyone, including family, friends and others, threaten you with harm: never How often does anyone, including family, friends and others, scream or curse at you: never Gender Identity: male service: No Exam Narrative: Exam Narrative: General: Afebrile, no acute distress HEENT: Normocephalic, atraumatic, conjunctiva normal. MMM Neck: non-tender, supple Cardio: regular rate. regular rhythm Resp: Normal work of breathing, no respiratory distress, lungs clear bilaterally, no wheezing, rhonchi, rales Chest/Back: no visual signs of trauma, no midline tenderness, no CVA tenderness Abdomen: soft, non distension, no tenderness, no peritoneal signs Neuro: alert and fully oriented. CN II-XII grossly intact. Grossly normal strength and sensation in all extremities. MSK: no deformities. Normal range of motion Integumentary/Skin: no rash visualized, normal color Psych: normal affect, normal behavior Const: Vital Signs, click to edit/add: Vital Signs - 24 hr 03/09/25 20:55 Temperature 97.7 F Pulse Rate [Left P ulse Oximeter] 67 Respiratory Rate 16 Blood Pressure [Ri ght Upper Arm] 117/60 Pulse Oximetry 94 Oxygen Delivery Me thod Room Air Course Vital Signs Vital signs: Initial Vital Signs Temperature 97.7 F 03/09/25 20:55 Temperature Source Temporal Artery Scan 03/09/25 20:55 Pulse Rate 67 03/09/25 20:55 Respiratory Rate 16 03/09/25 20:55 Blood Pressure 117/60 03/09/25 20:55 Blood Pressure Mean 79 03/09/25 20:55 Blood Pressure Position Sitting 03/09/25 20:55 Pulse Oximetry 94 03/09/25 20:55 Oxygen Delivery Method Room Air 03/09/25 20:55 Vital Signs Temperature 97.7 F 03/09/25 20:55 Pulse Rate 67 03/09/25 20:55 Respiratory Rate 16 03/09/25 20:55 Blood Pressure 117/60 03/09/25 20:55 Pulse Oximetry 94 03/09/25 20:55 Oxygen Delivery Method Room Air 03/09/25 20:55 Temperature 97.7 F 03/09/25 20:55 Pulse Rate 67 03/09/25 20:55 Respiratory Rate 16 03/09/25 20:55 Blood Pressure 117/60 03/09/25 20:55 Pulse Oximetry 94 03/09/25 20:55 Oxygen Delivery Method Room Air 03/09/25 20:55 MDM - Male Genitourinary MDM Narrative Medical decision making narrative: Ming is an 89-year-old male who presents the emergency department for evaluation of hematuria. Upon arrival patient is nontoxic appearing, afebrile, no distress. Patient hemodynamically stable vital signs within normal limits. Differential diagnosis includes but is not limited to cystitis versus pyelonephritis versus nephrolithiasis versus malignancy among others. Patient denies any abdominal, flank pain. Patient is currently undergoing workup for micro hematuria with [facility] and is scheduled to have a cystoscopy with possible biopsy at the beginning of April. I reviewed urinalysis which demonstrates blood, positive leukocyte esterase, 10-25 white blood cells, few bacteria. I discussed results with patient. Given new symptoms, age, will treat with antibiotics and follow-up on culture. If culture negative patient could discontinue antibiotics. I also strongly encouraged him to follow-up with urology and possibly see if he can get in sooner to have his cystoscopy. Patient and daughter feel comfortable with this plan. At this time no emergent indication for laboratory testing or admission to the hospital at this time. Strict return precautions discussed if high fever, severe abdominal or flank pain, altered mental status, or any worsening symptoms. Patient and daughter understand and agree with the plan. Medical Records Attestation: I reviewed the patient's medical records. Lab Data Labs: Lab Results 03/09/25 Range/Units 21:14 Urine Color Dark yellow (Yellow) Urine Appearance Clear (Clear) Urine pH 6.0 (5.0-8.5) Ur Specific [place] 1.025 (1.000-1.030) Urine Protein Trace A (Negative) Urine Glucose (UA) Negative (Negative) Urine Ketones Negative (Negative) Urine Blood 3+ A (Negative) Urine Nitrite Negative (Negative) Urine Bilirubin Negative (Negative) Urine Urobilinogen 1.0 (0.2-1.0) Ur Leukocyte Esterase 1+ A (Negative) Urine RBC 5-10 A (0-2) Urine WBC 10-25 A (0-5) Ur Squamous Epith Cells Few (None-Few) Amorphous Sediment Few A (None) Urine Bacteria Few A (None) Discharge Plan Discharge Clinical Impression: Hematuria, Urinary tract infection Patient Disposition: Home, Self-Care Condition: Stable Additional Instructions: Please follow-up with your primary care provider in the next 5-7 days for further evaluation, follow-up, and repeat urinalysis. Please call to schedule an appointment. Please follow-up with urology team for ongoing evaluation. Please rest, drink plenty of fluids. You may take Tylenol as needed for fever or pain. Please take antibiotics 3 times a day for the next 7 days. Please return to the emergency department if you develop high fever, severe pain, persistent vomiting, altered mental status/confusion, or any worsening symptoms. It was a pleasure taking care of you today. We hope you have a great week! Prescriptions: No Action ferrous sulfate 325 mg (65 mg iron) tablet,delayed release (DR/EC) 325 mg PO DAILY cyanocobalamin (vitamin B-12) 1,000 mcg capsule 1,000 mcg PO 3XW finasteride 5 mg tablet 5 mg PO DAILY latanoprost 0.005 % Drops 1 drp ophthalmic (eye) HS 30 Days Qty: 2.5 0RF Patient Comments: BOTH EYES atorvastatin 40 mg Tablet 40 mg PO HS 30 Days Qty: 30 0RF sertraline 50 mg tablet 150 mg PO DAILY Qty: 90 2RF acetaminophen 500 mg capsule 500 - 1,000 mg PO Q6H MDD 4000mg PRNQty: 100 0RF sennosides-docusate sodium [Senna-S] 8.6-50 mg tablet 1 tab-cap PO DAILY PRN (Reason: constipation) Rx Instructions: Hold medication if experiencing loose stools. propranolol 20 mg tablet 20 mg PO BID omeprazole 40 mg capsule,delayed release(DR/EC) 40 mg PO DAILY tamsulosin 0.4 mg capsule 0.4 mg PO DAILY Follow Up/Referrals: Jennifer Carter PA-C [Primary Care Provider, Family Practice] Stand Alone Forms: [facility] Info Instructions
[2025-03-09 20:55] VITALS: BP 117/60; PULSE 67; RESP 16; TEMP 36.5; O2SAT 94; BMI 24.4
[2025-03-09 21:21] LABS: Appearance Urine Clear (Clear)
== END 2025-03-09 22:50 | disposition home or self-care (01) ==
PROVIDERS: Emergency Provider Emergency Medicine; PCP Physician Assistant
DX: R31.9 Hematuria, unspecified (principal); N39.0 Urinary tract infection, site not specified
CPT/HCPCS: 81001; 87086; 99283; 99285

== ENCOUNTER 2025-04-20 17:17 | Outpatient (CLI) | payer MEDICARE, BC, SELFPAY | END 2025-04-20 17:18 | disposition home or self-care (01) | LOC: NFLDREF 04-26 04:49 | PROVIDERS: PCP Physician Assistant; Referring Provider Physician Assistant | DX: N30.01 Acute cystitis with hematuria (principal) | CPT/HCPCS: 87086; 87186 ==